=== PATIENT | female | born 1950 | race Caucasian/White ===

== ENCOUNTER 2016-12-31 13:47 | Inpatient (IN) | payer OTHER ==
[~2016-12-31] VITALS: Ht 172.7 cm; Wt 66.7 kg
[~2016-12-31 13:47] MED LIST: CHOL100010 PO; CYAN100020 PO; FSM70 PO; IMP/50 PO; LEVO1TAB33 PO; METO1TAB69 PO; METO25TA56 PO; MULTTAB58 PO; OMEG10007 PO; PRLSR20 PO; SUMA50TA15 PO; TRAM-10 PO; TRIM100T20 PO
[2016-12-31] MEDS ORDERED: SODIUM CHLORIDE 0.9% 1000ML 500 ML IV STA (14:32)
[2016-12-31] MEDS ORDERED: SODIUM CHLORIDE 0.9% 1000ML 1,000 ML IV ONE (14:32)
--- NOTE | 2016-12-31 14:41 | EMERGENCY ROOM VISIT NOTE ---
History Report prepared by Vik: Hugo Gasca Under the Supervision of: Dr. Hugo Galdamez M.D. First contact with patient: 14:23 Chief Complaint: WEAKNESS Stated Complaint: WEAKNESS, PALE, DIZZY Nursing Triage Summary: Dizziness, weakness, SKIN DRIER cough, intermittent fever History of Present Illness The patient is a 66 year old female who presents to the Emergency Room by EMS with complaints of persistent weakness beginning a few days ago. She notes she has not been eating much the last few days as she has not been as hungry, but has been drinking fluids. She admits to having a headache, subjective fever, lightheadedness, shortness of breath, and a nonproductive cough. The patient denies any vomiting, aches, abdominal pain, or any recent falls. She reports having difficulty keeping her balance in the last few months. The patient notes having a pacemaker which was last checked last year, and has been noted to have some Parkinson's symptoms. She denies a history of diabetes or fluid on the lungs. The patient received Zofran and fluids en route by EMS Source of History: patient, spouse/significant other Onset: a few days ago Position: other (global) Quality: other (weakness) Timing: other (persistent) Associated Symptoms: + SOB, + cough (nonproductive), + fevers (subjective), + headache, No abdominal pain, No vomiting Note: The patient admits to having lightheadedness. The patient denies any aches. Review of Systems See HPI for pertinent positives & negatives. A total of 10 systems reviewed and were otherwise negative. Past Medical & Surgical Medical Problems: (1) Mobitz type II atrioventricular block (2) Tachycardia Old medical records were reviewed. Nurse's notes were reviewed and I agree with. Family History No pertinent family history stated. Social History Smoking Status: Never Smoker Drug Use: none Marital Status: Housing Status: lives with family Current/Historical Medications Scheduled Alendronate Sodium (Fosamax), 70 MG PO WK Cholecalciferol (Vitamin D), 100 UNITS PO DAILY Cyanocobalamin (Vitamin B12), 1,000 MCG PO DAILY Fish Oil ([place]-3), 1,000 MG PO BID Imipramine (Tofranil), 150 MG PO HS Metoprolol Succ (Toprol Xl) (Toprol-Xl ), 150 MG PO DAILY Multiple Vitamin (Multivitamin), 1 TAB PO DAILY Omeprazole (Prilosec), 20 MG PO DAILY Oseltamivir Phosphate (Tamiflu), 1 CAP PO BID Sumatriptan Succinate (Imitrex), 50 MG PO PRN Tramadol (Ultram), 50 MG PO BID PRN Trimethoprim (Proloprim), 100 MG PO HS Scheduled PRN Metoprolol Tartrate (Lopressor) (Lopressor), 25 MG PO Q8 PRN Allergies Coded Allergies: Penicillins (Verified Allergy, Intermediate, HIVES, 06/06/16) HIVES Morphine (Verified Allergy, Unknown, HYPOTENSION, 06/06/16) Physical Exam Vital Signs Date Time Temp Pulse Resp B/P Pulse Ox O2 Delivery O2 Flow Rate FiO2 12/31/16 15:37 113 18 132/89 97 Room Air 12/31/16 14:40 113 12/31/16 14:15 36.9 116 18 131/71 98 Nasal Cannula 3.0 12/31/16 14:15 98 Nasal Cannula 3.0 Physical Exam General: Mildly ill appearing, but nontoxic, older female. Frequent dry cough. HEENT: Normal cephalic atraumatic. Pupils are equal round and reactive to light. Extraocular movements are intact. Oropharynx is pink with moist mucous membranes. No swelling of the mouth lips or tongue. Neck: Supple with a midline trachea. No meningeal signs or stiffness, no JVD or bruits. No Stridor. Chest: Clear to auscultation bilaterally. No wheezes or rhonchi. No increased work of breathing. Heart: Mildly tachycardic. Abdomen: Soft nontender, nondistended without rebound guarding or rigidity. Extremities: No cyanosis clubbing or edema. No calf tenderness or assymetry Spine/Back. Non tender to palpation. No CVA tenderness Skin: Good turgor without rashes. Neurologic exam: Cranial nerves two through 12 are intact. Motor and sensation are intact and symmetrical throughout. Medical Decision & Procedures ER Provider Diagnostic Interpretation: X ray results as stated below per my interpretation and radiologist interpretation. Other radiology results as stated below per my review and radiologist interpretation: CHEST ONE VIEW PORTABLE FINDINGS: Lungs are clear. Moderate emphysematous change. Diaphragms smooth. Prominent bipolar cardiac pacemaker. IMPRESSION: Emphysematous change. No acute process. Electronically signed by: Thad Sheppard M.D. 12/31/2016 3:00 PM Dictated Date/Time: 12/31/2016 2:59 PM Laboratory Results 12/31/16 14:20 Red Blood Count 4.93, Mean Corpuscular Volume 89.5, Mean Corpuscular Hemoglobin 31.8, Mean Corpuscular Hemoglobin Concent 35.6, Mean Platelet Volume 10.9, Neutrophils (%) (Auto) 75.4, Lymphocytes (%) (Auto) 17.7, Monocytes (%) (Auto) 6.5, Eosinophils (%) (Auto) 0.0, Basophils (%) (Auto) 0.2, Neutrophils # (Auto) 3.58, Lymphocytes # (Auto) 0.84, Monocytes # (Auto) 0.31, Eosinophils # (Auto) 0.00, Basophils # (Auto) 0.01 12/31/16 14:20 Test 12/31/16 14:10 12/31/16 14:13 12/31/16 14:20 12/31/16 14:31 Influenza Type A (RT-PCR) POS for Influ A (NEG) Influenza Type B (RT-PCR) Neg for Influ B (NEG) White Blood Count 4.75 K/uL (4.8-10.8) Red Blood Count 4.93 M/uL (4.2-5.4) Hemoglobin 15.7 g/dL (12.0-16.0) Hematocrit 44.1 % (37-47) Mean Corpuscular Volume 89.5 fL (80-100) Mean Corpuscular Hemoglobin 31.8 pg (25-34) Mean Corpuscular Hemoglobin Concent 35.6 g/dl (32-36) Platelet Count 125 K/uL (130-400) Mean Platelet Volume 10.9 fL (7.4-10.4) Neutrophils (%) (Auto) 75.4 % Lymphocytes (%) (Auto) 17.7 % Monocytes (%) (Auto) 6.5 % Eosinophils (%) (Auto) 0.0 % Basophils (%) (Auto) 0.2 % Neutrophils # (Auto) 3.58 K/uL (1.4-6.5) Lymphocytes # (Auto) 0.84 K/uL (1.2-3.4) Monocytes # (Auto) 0.31 K/uL (0.11-0.59) Eosinophils # (Auto) 0.00 K/uL (0-0.5) Basophils # (Auto) 0.01 K/uL (0-0.2) RDW Standard Deviation 40.6 fL (36.4-46.3) RDW Coefficient of Variation 12.5 % (11.5-14.5) Immature Granulocyte % (Auto) 0.2 % Immature Granulocyte # (Auto) 0.01 K/uL (0.00-0.02) Anion Gap 16.0 mmol/L (3-11) Est Creatinine Clear Calc Drug Dose 29.0 ml/min Estimated GFR () 31.1 Estimated GFR (Non- 26.8 BUN/Creatinine Ratio 9.2 (10-20) Calcium Level 9.0 mg/dl (8.5-10.1) Total Bilirubin 0.6 mg/dl (0.2-1) Aspartate Amino Transf (AST/SGOT) 22 U/L (15-37) Alanine Aminotransferase (ALT/SGPT) 19 U/L (12-78) Alkaline Phosphatase 70 U/L (45-117) Total Creatine Kinase 36 U/L (26-192) Creatine Kinase MB < 0.5 ng/ml (0.5-3.6) Creatine Kinase MB Ratio (0-3.0) Total Protein 7.5 gm/dl (6.4-8.2) Albumin 3.8 gm/dl (3.4-5.0) Globulin 3.7 gm/dl (2.5-4.0) Albumin/Globulin Ratio 1.0 (0.9-2) Thyroid Stimulating Hormone (TSH) 1.520 uIu/ml (0.300-4.500) Bedside Troponin I 0.000 ng/ml (0-0.045) Laboratory studies as stated above per my review. Medications Administered Medications (Trade) Dose Ordered Sig/Faraz Route Start Time Stop Time Status Last Admin Dose Admin Sodium Chloride 500 ml @ 999 mls/hr Q31M STAT IV 12/31/16 14:32 12/31/16 15:02 DC 12/31/16 14:36 999 MLS/HR Sodium Chloride (Nss 1000ml) 1,000 ml @ 150 mls/hr Q6H40M ONCE IV 12/31/16 14:32 12/31/16 20:02 DC 12/31/16 14:36 150 MLS/HR Oseltamivir Phosphate 75 mg 75 mg NOW STAT PO 12/31/16 16:12 12/31/16 16:13 DC 12/31/16 16:28 75 MG Sodium Chloride (Nss 1000ml) 1,000 ml @ 100 mls/hr Q10H IV 12/31/16 16:30 01/30/17 16:29 12/31/16 21:14 100 MLS/HR ECG Indication: weakness Rate (beats per minute): 112 Rhythm: sinus tachycardia Findings: no acute ischemic change, no ectopy, other (poor baseline; poor R wave progression) Comparison ECG Date: June 06, 2016 Change: Rate has increased. ED Course 1424: Past medical records reviewed. The patient was evaluated in room C8, and a complete history and physical examination were performed. 1432: NSS 1,000 ml @ 150 mls/hr IV, and NSS 500 ml @ 999 mls/hr IV. 1610: I spoke with Dr. Rankin about the patient's case. The patient will be further evaluated and managed for disposition. 1612: Ordered Tamiflu Cap 75 mg PO. Medical Decision Differentials include dehydration, pneumonia, sepsis, influenza, electrolyte or metabolic arrhythmia. This patient comes in as described above. She was placed in room C8. She's not felt well. She's been unable to get around. She's been diffusely weak. She was noted be significantly tachycardic by EMS at 140 and her pulse ox had been in the high 80s. I was concerned about infection and cardiac disease among other etiologies. IV access established and she was hydrated with IV normal saline. Chest x-ray does not show any definite pneumonia, CHF, or pneumothorax. EKG shows sinus tachycardia but no ischemic changes. She does not any significant electrode or metabolic abnormalities. Her neurologic exam is nonfocal but she feels diffusely weak. Her influenza PCR came back positive. She was given Tamiflu. Given her presentation, I do think she needs to be admitted for hydration and further treatment and evaluation. She's been weak and tachycardic and mildly hypoxemic as well. I did consult the hospitalist team. They saw her in the ER and will admit her for these measures. Consults Time Called: 1608 Consulting Physician: Dr. Rankin Returned Call: [address] Rankin about the patient's case. The patient will be further evaluated and managed for disposition. Impression Primary Impression: Weakness Additional Impressions: Dehydration Influenza Scribe Attestation The scribe's documentation has been prepared under my direction and personally reviewed by me in its entirety. I confirm that the note above accurately reflects all work, treatment, procedures, and medical decision making performed by me. Departure Information Dispostion Being Evaluated By Hospitalist Prescriptions Oseltamivir Phosphate (Tamiflu) 75 Mg Cap 1 CAP PO BID for 5 Days, #10 CAP Prov: Ted Oneal, D.O. 01/01/17 Referrals RV. Shelton MD (PCP) Patient Instructions My [facility] Problem Qualifiers
[2016-12-31 14:46] LABS: BASO % 0.2 %; BASO ABS # 0.01 K/uL (0-0.2); COMPLETE YES; HEMATOCRIT 44.1 % (37-47); IG% 0.2 %; LYMPH % 17.7 %; LYMPH ABS # 0.84 K/uL (1.2-3.4); MEAN CELL VOLUME 89.5 fL (80-100); MEAN CORPUSCULAR HEMOGLOBIN 31.8 pg (25-34); MEAN CORPUSCULAR HGB CONC 35.6 g/dl (32-36); MEAN PLATELET VOLUME 10.9 fL (7.4-10.4); MONO % 6.5 %; NEUT % 75.4 %; PLATELET COUNT 125 K/uL (130-400); RED BLOOD COUNT 4.93 M/uL (4.2-5.4); WHITE BLOOD COUNT 4.75 K/uL (4.8-10.8)
[2016-12-31 14:54] LABS: ALT/SGPT 19 U/L (12-78); AST/SGOT 22 U/L (15-37); BLOOD UREA NITROGEN 17 mg/dl (7-18); BUN/CREATININE RATIO 9.2 (10-20); CARBON DIOXIDE 21 mmol/L (21-32); CHLORIDE 97 mmol/L (98-107); GLUCOSE 97 mg/dl (70-99); POTASSIUM 4.5 mmol/L (3.5-5.1); SODIUM 134 mmol/L (136-145)
--- NOTE | 2016-12-31 15:01 | DIAGNOSTIC IMAGING REPORT ---
CHEST ONE VIEW PORTABLE CLINICAL HISTORY: Weakness, dizzy dyspnea COMPARISON STUDY: 06/06/2016 FINDINGS: Lungs are clear. Moderate emphysematous change. Diaphragms smooth. Prominent bipolar cardiac pacemaker. IMPRESSION: Emphysematous change. No acute process. Electronically signed by: Thad Sheppard M.D. 12/31/2016 3:00 PM Dictated Date/Time: 12/31/2016 2:59 PM
[2016-12-31 15:05] LABS: ALKALINE PHOSPHATASE 70 U/L (45-117)
[2016-12-31] MEDS ORDERED: ALEN70TA2 PO (15:12)
[2016-12-31] MEDS ORDERED: CHOL100010 PO (15:12)
[2016-12-31 16:11] LABS: INFLUENZA A PCR POS for Influ A (NEG); INFLUENZA B PCR Neg for Influ B (NEG)
[2016-12-31] MEDS ORDERED: OSELTAMIVIR PHOSPHATE 75 MG CAP PO STA (16:12)
[2016-12-31] MEDS ORDERED: ONDANSETRON INJ 2 MG/ML 2 ML VIAL IV PRN (16:30)
[2016-12-31] MEDS ORDERED: ACETAMINOPHEN 325 MG TAB PO PRN (16:30)
--- NOTE | 2016-12-31 17:04 | History and Physical ---
History & Physical Date & Time of Service: Dec 31, 2016 at 16:54 Chief Complaint: Weakness, Pale, Dizzy Primary Care Physician: RV. Shelton MD History of Present Illness Source: patient, clinic records, hospital records This patient is a 66-year-old female that presents the emergency department complaining of nonproductive cough, dyspnea with exertion and lightheadedness that started 4 days ago. The patient thinks that she also had a fever last night, but did not take her temperature. She reports night sweats and some body aches. She denies any sick contacts. She did receive her flu vaccine this year. She denies any chest pain or pressure. She has noticed a poor appetite. She is still trying to adequately take in fluids, but admits to not eating much over the last several days. In the emergency department, the patient tested positive for influenza A. Past Medical/Surgical History Medical Problems: (1) Mobitz type II atrioventricular block Status: Chronic sick sinus syndrome status post pacemaker placement Parkinson-like syndrome History of migraines Ambulatory dysfunction Social History Smoking Status: Never Smoker Alcohol Use: none Marital Status: Housing status: lives with significant other Immunizations History of Influenza Vaccine: No History of Tetanus Vaccine?: No History of Pneumococcal: No History of Hepatitis B Vaccine: No Multi-Drug Resistant Organisms History of MDRO: No Allergies Coded Allergies: Penicillins (Verified Allergy, Intermediate, HIVES, 06/06/16) HIVES Morphine (Verified Allergy, Unknown, HYPOTENSION, 06/06/16) Home Medications Scheduled Alendronate Sodium (Fosamax), 70 MG PO WK Cholecalciferol (Vitamin D), 100 UNITS PO DAILY Cyanocobalamin (Vitamin B12), 1,000 MCG PO DAILY Fish Oil ([place]-3), 1,000 MG PO BID Imipramine (Tofranil), 150 MG PO HS Metoprolol Succ (Toprol Xl) (Toprol-Xl ), 150 MG PO DAILY Multiple Vitamin (Multivitamin), 1 TAB PO DAILY Omeprazole (Prilosec), 20 MG PO DAILY Sumatriptan Succinate (Imitrex), 50 MG PO PRN Tramadol (Ultram), 50 MG PO BID PRN Trimethoprim (Proloprim), 100 MG PO HS Scheduled PRN Metoprolol Tartrate (Lopressor) (Lopressor), 25 MG PO Q8 PRN Review of Systems 10 system review performed and negative unless noted in HPI or below Physical Exam Vital Signs Date Time Temp Pulse Resp B/P Pulse Ox O2 Delivery O2 Flow Rate FiO2 12/31/16 15:37 113 18 132/89 97 Room Air 12/31/16 14:40 113 12/31/16 14:15 36.9 116 18 131/71 98 Nasal Cannula 3.0 12/31/16 14:15 98 Nasal Cannula 3.0 General Appearance: + mild distress (mild respiratory distress) Head: normocephalic Eyes: EOMI ENT: + pertinent finding (oral mucosa dry) Neck: no JVD Respiratory/Chest: + pertinent finding (few rhonchi noted in the right middle and right lower lobes. No crackles. Mild expiratory wheeze throughout.) Cardiovascular: + tachycardia Abdomen/GI: normal bowel sounds, non tender, soft Extremities/Musculoskelatal: no calf tenderness, no pedal edema Neurologic/Psych: no motor/sensory deficits, oriented x 3 Skin: warm/dry Diagnostics Laboratory Results 12/31/16 14:20 Red Blood Count 4.93, Mean Corpuscular Volume 89.5, Mean Corpuscular Hemoglobin 31.8, Mean Corpuscular Hemoglobin Concent 35.6, Mean Platelet Volume 10.9, Neutrophils (%) (Auto) 75.4, Lymphocytes (%) (Auto) 17.7, Monocytes (%) (Auto) 6.5, Eosinophils (%) (Auto) 0.0, Basophils (%) (Auto) 0.2, Neutrophils # (Auto) 3.58, Lymphocytes # (Auto) 0.84, Monocytes # (Auto) 0.31, Eosinophils # (Auto) 0.00, Basophils # (Auto) 0.01 12/31/16 14:20 Test 12/31/16 14:10 12/31/16 14:13 12/31/16 14:20 12/31/16 14:31 Influenza Type A (RT-PCR) POS for Influ A (NEG) Influenza Type B (RT-PCR) Neg for Influ B (NEG) White Blood Count 4.75 K/uL (4.8-10.8) Red Blood Count 4.93 M/uL (4.2-5.4) Hemoglobin 15.7 g/dL (12.0-16.0) Hematocrit 44.1 % (37-47) Mean Corpuscular Volume 89.5 fL (80-100) Mean Corpuscular Hemoglobin 31.8 pg (25-34) Mean Corpuscular Hemoglobin Concent 35.6 g/dl (32-36) Platelet Count 125 K/uL (130-400) Mean Platelet Volume 10.9 fL (7.4-10.4) Neutrophils (%) (Auto) 75.4 % Lymphocytes (%) (Auto) 17.7 % Monocytes (%) (Auto) 6.5 % Eosinophils (%) (Auto) 0.0 % Basophils (%) (Auto) 0.2 % Neutrophils # (Auto) 3.58 K/uL (1.4-6.5) Lymphocytes # (Auto) 0.84 K/uL (1.2-3.4) Monocytes # (Auto) 0.31 K/uL (0.11-0.59) Eosinophils # (Auto) 0.00 K/uL (0-0.5) Basophils # (Auto) 0.01 K/uL (0-0.2) RDW Standard Deviation 40.6 fL (36.4-46.3) RDW Coefficient of Variation 12.5 % (11.5-14.5) Immature Granulocyte % (Auto) 0.2 % Immature Granulocyte # (Auto) 0.01 K/uL (0.00-0.02) Anion Gap 16.0 mmol/L (3-11) Est Creatinine Clear Calc Drug Dose 29.0 ml/min Estimated GFR () 31.1 Estimated GFR (Non- 26.8 BUN/Creatinine Ratio 9.2 (10-20) Calcium Level 9.0 mg/dl (8.5-10.1) Total Bilirubin 0.6 mg/dl (0.2-1) Aspartate Amino Transf (AST/SGOT) 22 U/L (15-37) Alanine Aminotransferase (ALT/SGPT) 19 U/L (12-78) Alkaline Phosphatase 70 U/L (45-117) Total Creatine Kinase 36 U/L (26-192) Creatine Kinase MB < 0.5 ng/ml (0.5-3.6) Creatine Kinase MB Ratio (0-3.0) Total Protein 7.5 gm/dl (6.4-8.2) Albumin 3.8 gm/dl (3.4-5.0) Globulin 3.7 gm/dl (2.5-4.0) Albumin/Globulin Ratio 1.0 (0.9-2) Thyroid Stimulating Hormone (TSH) 1.520 uIu/ml (0.300-4.500) Bedside Troponin I 0.000 ng/ml (0-0.045) Results Past 24 Hours Test 12/31/16 14:10 12/31/16 14:13 12/31/16 14:20 12/31/16 14:31 Range/Units Influenza Type A (RT-PCR) POS for Influ A NEG Influenza Type B (RT-PCR) Neg for Influ B NEG White Blood Count 4.75 4.8-10.8 K/uL Red Blood Count 4.93 4.2-5.4 M/uL Hemoglobin 15.7 12.0-16.0 g/dL Hematocrit 44.1 37-47 % Mean Corpuscular Volume 89.5 80-100 fL Mean Corpuscular Hemoglobin 31.8 25-34 pg Mean Corpuscular Hemoglobin Concent 35.6 32-36 g/dl Platelet Count 125 130-400 K/uL Mean Platelet Volume 10.9 7.4-10.4 fL Neutrophils (%) (Auto) 75.4 % Lymphocytes (%) (Auto) 17.7 % Monocytes (%) (Auto) 6.5 % Eosinophils (%) (Auto) 0.0 % Basophils (%) (Auto) 0.2 % Neutrophils # (Auto) 3.58 1.4-6.5 K/uL Lymphocytes # (Auto) 0.84 1.2-3.4 K/uL Monocytes # (Auto) 0.31 0.11-0.59 K/uL Eosinophils # (Auto) 0.00 0-0.5 K/uL Basophils # (Auto) 0.01 0-0.2 K/uL RDW Standard Deviation 40.6 36.4-46.3 fL RDW Coefficient of Variation 12.5 11.5-14.5 % Immature Granulocyte % (Auto) 0.2 % Immature Granulocyte # (Auto) 0.01 0.00-0.02 K/uL Sodium Level 134 136-145 mmol/L Potassium Level 4.5 3.5-5.1 mmol/L Chloride Level 97 98-107 mmol/L Carbon Dioxide Level 21 21-32 mmol/L Anion Gap 16.0 3-11 mmol/L Blood Urea Nitrogen 17 7-18 mg/dl Creatinine 1.90 0.60-1.20 mg/dl Est Creatinine Clear Calc Drug Dose 29.0 ml/min Estimated GFR () 31.1 Estimated GFR (Non- 26.8 BUN/Creatinine Ratio 9.2 10-20 Random Glucose 97 70-99 mg/dl Calcium Level 9.0 8.5-10.1 mg/dl Total Bilirubin 0.6 0.2-1 mg/dl Aspartate Amino Transf (AST/SGOT) 22 15-37 U/L Alanine Aminotransferase (ALT/SGPT) 19 12-78 U/L Alkaline Phosphatase 70 45-117 U/L Total Creatine Kinase 36 26-192 U/L Creatine Kinase MB < 0.5 0.5-3.6 ng/ml Creatine Kinase MB Ratio 0-3.0 Total Protein 7.5 6.4-8.2 gm/dl Albumin 3.8 3.4-5.0 gm/dl Globulin 3.7 2.5-4.0 gm/dl Albumin/Globulin Ratio 1.0 0.9-2 Thyroid Stimulating Hormone (TSH) 1.520 0.300-4.500 uIu/ml Bedside Troponin I 0.000 0-0.045 ng/ml Diagnostic Radiology Patient: TO RED Address1: [address] [place] [address] Rec: [id number] Address2: Acct ID: [id number] [facility] Zip: [place] [address] Date: 1950 Sex: F Room/Bed: Ref Phy: RV. Shelton MD SC: TAINA Att Phy: Report #: [id number] Celsa Phy: RV. Shelton MD Test: [id number] Admit Phy: Motor Expert: JYOTI Interpreting Phy: Thad Sheppard M.D. Diagnosis: WEAKNESS, PALE, DIZZY Ordering Phy: ED, PROTOCOL Service Date: 12/31/16 Admit Date: 12/31/16 MNE: [id number] CONF: DICTATED BY: Thad Sheppard M.D.]] CC: RV. Shelton MD ED,PROTOCOL Hugo Galdamez M.D. Endcc: [~ rep ct add3]] CHEST ONE VIEW PORTABLE CLINICAL HISTORY: Weakness, dizzy dyspnea COMPARISON STUDY: 06/06/2016 FINDINGS: Lungs are clear. Moderate emphysematous change. Diaphragms smooth. Prominent bipolar cardiac pacemaker. IMPRESSION: Emphysematous change. No acute process. Electronically signed by: Thad Sheppard M.D. 12/31/2016 3:00 PM Dictated Date/Time: 12/31/2016 2:59 PM The status of this report is Signed. Draft = Not yet reviewed or approved by Radiologist. Signed = Reviewed and approved by Radiologist. <AttendingPhy></AttendingPhy> <FamilyPhy>RV. Shelton MD</ FamilyPhy> <PrimaryPhy>RV. Shelton MD</PrimaryPhy> <UnitNumber> [id number]</UnitNumber> <VisitNumber>[id number]</VisitNumber> <PatientName> NEDATO</PatientName> <DateOfBirth>1950</DateOfBirth> <Location> C.EDC</Location> <ServiceDate>12/31/16</ServiceDate> <MNE>ESINDI</MNE> < OrderingPhy>ED, PROTOCOL</OrderingPhy> <OrderingPhyMNE>f rep ord dr guidry</ OrderingPhyMNE> <DictatingPhyMNE>f rep dict dr guidry</DictatingPhyMNE> <CCListMNE> f rep ct mne</CCListMNE> <AdmittingPhyMNE>f pt admit dr guidry</AdmittingPhyMNE> < AttendingPhyMNE>f pt attend dr guidry</Atte Impression Assessment and Plan 66-year-old female presents with fever, dyspnea with exertion, nonproductive cough, weakness and dehydration-tested influenza a positive Influenza a -Admit to medical floor -Continue Tamiflu 75 mg BID -continue O2 prn -NS @ 100 cc/hr -duonebs q 6 hr and 2 hr PRN Acute on chronic kidney disease stage III-Baseline creatinine approximately 1.6. Creatinine is slightly elevated today at 1.9. This is likely secondary to dehydration. -IV fluids as noted above -Monitor PRP History of Mobitz II status post pacemaker placement-patient is slightly tachycardic in the emergency department, however I feel this is likely secondary to acute illness/dehydration as opposed to strictly cardiogenic -Continue to hydrate -Continue metoprolol XL 150 mg daily -Continue Lopressor 25 mg po every 8 hrs if HR does not respond to IVF Parkinson syndrome -PT/OT eval DVT prophylaxis -Heparin 5000 u subQ BID -TEDS, SCDs CODE STATUS -LEVEL I FULL CODE i personally examined pt and verified all marmolejo points w A [facility] PAC feeling weak vitals noted, fatigued appearing no respiratory distress, no pallor or icterus influenza - as above. given severity of illness, age, comorbidities - tamiflu acute on chronic renal insufficiency - approx stage 3 - fluids as above otherwise as above Level of Care Med/Surg Resuscitation Status FULL RESUSCITATION VTE Prophylaxis VTE Risk Assessment Done? Y/N: Yes Risk Level: Low Given or contraindicated: Unfractionated heparin SQ, T.E.D. Stockings, SCD's
[2016-12-31 19:15] VITALS: Ht 172.7 cm; Wt 66.7 kg
[2016-12-31 19:32] VITALS: BP 138/84; PULSE 126; TEMP 36.6; O2SAT 96
[2016-12-31 19:37] VITALS: PULSE 107; O2SAT 93
[2016-12-31] MEDS: ALBUT/IPRATROP 3MG/0.5MG NEB 3 ML VIAL INH SCH (20:00)
[2016-12-31 20:39] LABS: PROTHROMBIN TIME (PATIENT) 10.8 SECONDS (9.0-12.0)
[2016-12-31] MEDS: SODIUM CHLORIDE 0.9% 1000ML 1,000 ML IV SCH (21:14)
[2016-12-31 22:59] VITALS: BP 125/76; PULSE 108; TEMP 37.1; O2SAT 95
[2017-01-01] MEDS: HEPARIN SOD 5000 UNIT/0.5 ML CARP SQ SCH ×3 (00:16→14:14)
[2017-01-01] MEDS: SODIUM CHLORIDE 0.9% 1000ML 1,000 ML IV SCH (06:30)
[2017-01-01 06:36] LABS: HEMATOCRIT 35.7 % (37-47); MEAN CELL VOLUME 91.1 fL (80-100); MEAN CORPUSCULAR HEMOGLOBIN 31.9 pg (25-34); MEAN PLATELET VOLUME 10.6 fL (7.4-10.4); PLATELET COUNT 94 K/uL (130-400); RED BLOOD COUNT 3.92 M/uL (4.2-5.4); WHITE BLOOD COUNT 2.84 K/uL (4.8-10.8)
[2017-01-01 06:52] LABS: COMPLETE YES; IG% 0.4 %; LYMPH % 26.8 %; LYMPH ABS # 0.76 K/uL (1.2-3.4); MONO % 7.4 %; NEUT % 65.4 %; PLT ESTIMATE DECREASED
[2017-01-01 07:06] VITALS: PULSE 109; O2SAT 94
[2017-01-01] MEDS: ALBUT/IPRATROP 3MG/0.5MG NEB 3 ML VIAL INH SCH (07:06)
[2017-01-01 07:07] LABS: BUN/CREATININE RATIO 10.1 (10-20); CALCIUM 7.9 mg/dl (8.5-10.1); CREATININE 1.2 mg/dl (0.60-1.20); MAGNESIUM 1.7 mg/dl (1.8-2.4); POTASSIUM 4.5 mmol/L (3.5-5.1)
[2017-01-01 07:34] LABS: URINE APPEARANCE CLEAR (CLEAR); URINE BILIRUBIN NEG (NEG); URINE COLOR YELLOW; URINE NITRITE NEG (NEG); URINE SPECIFIC GRAVITY 1.016 (1.000-1.030); UROBILINOGEN NEG (NEG); ZZUR CULT IF INDIC CLEAN CATCH NO
[2017-01-01 07:36] VITALS: BP 115/71; TEMP 36.7; O2SAT 95
[2017-01-01 07:46] LABS: MANUAL MICROSCOPIC REQUIRED? NO; REVIEW REQ? NO
[2017-01-01] MEDS ORDERED: METOPROLOL SUCC 50MG EXT REL TAB PO SCH (09:00)
[2017-01-01] MEDS ORDERED: OSELTAMIVIR PHOSPHATE SUSP 30 MG/5 ML UDP PO SCH (09:00)
[2017-01-01] MEDS ORDERED: PANTOprazole SOD 40 MG TAB PO SCH (09:00)
--- NOTE | 2017-01-01 09:18 | Family Medicine Progress Note ---
Progress Note Date of Service Jan 01, 2017. Subjective Pt evaluation today including: conversation w/ patient, physical exam, chart review, lab review, review of studies Pain: No pain reported this morning Voiding: no voiding problems Patient is a 66 year old female that presented with Influenza A virus. Patient is doing well, denies any shortness of breath or cough. Denies fevers, chills, or headache. Constitutional: No chills, No fever, No sweats Respiratory: No cough, No sputum, No wheezing Cardiovascular: No chest pain, No edema Abdomen: No nausea, No pain, No vomiting Female : No dysuria Endo: + fatigue Medications Current Inpatient Medications Medications (Trade) Dose Ordered Sig/Faraz Route Start Time Stop Time Status Last Admin Dose Admin Heparin Sodium (Porcine) (Heparin Sq 5000 Unit/0.5ml) 5,000 unit Q8H SQ 12/31/16 22:00 01/30/17 21:59 01/01/17 06:35 5,000 UNIT Acetaminophen (Tylenol Tab) 650 mg Q4H PRN PO 12/31/16 16:30 01/30/17 16:29 Ondansetron HCl 4 mg 4 mg Q6H PRN IV 12/31/16 16:30 01/30/17 16:29 Sodium Chloride (Nss 1000ml) 1,000 ml @ 100 mls/hr Q10H IV 12/31/16 16:30 01/30/17 16:29 01/01/17 06:30 100 MLS/HR Oseltamivir Phosphate (Tamiflu Susp) 30 mg BID PO 01/01/17 09:00 01/06/17 08:59 01/01/17 08:35 30 MG Metoprolol Succinate (Toprol Xl Tab) 150 mg DAILY PO 01/01/17 09:00 01/31/17 08:59 01/01/17 08:35 150 MG Pantoprazole Sodium (Protonix Tab) 40 mg QAM PO 01/01/17 09:00 01/31/17 08:59 01/01/17 08:35 40 MG Miscellaneous Information (Order Awaiting Action) 1 ea QS N/A 01/01/17 00:00 01/31/17 00:00 Objective Vital Signs Date Time Temp Pulse Resp B/P Pulse Ox O2 Delivery O2 Flow Rate FiO2 01/01/17 07:36 36.7 20 115/71 95 Room Air 01/01/17 07:06 109 18 94 Room Air 01/01/17 00:30 Room Air 12/31/16 22:59 37.1 108 16 125/76 95 Room Air 12/31/16 19:37 107 18 93 Room Air 12/31/16 19:32 36.6 126 20 138/84 96 Room Air 12/31/16 19:15 Room Air 12/31/16 18:49 104 20 140/53 100 Nasal Cannula 2.0 12/31/16 18:32 115 12/31/16 17:16 113 18 139/90 100 Room Air 12/31/16 15:37 113 18 132/89 97 Room Air 12/31/16 14:40 113 12/31/16 14:15 36.9 116 18 131/71 98 Nasal Cannula 3.0 12/31/16 14:15 98 Nasal Cannula 3.0 Physical Exam General Appearance: WD/WN, no apparent distress Respiratory/Chest: chest non-tender, lungs clear, normal breath sounds, no respiratory distress Cardiovascular: no edema, no gallop, no JVD, no murmur, + extra beats Abdomen: normal bowel sounds, non tender, soft Extremities: non-tender, no pedal edema, no calf tenderness Neurologic/Psychiatric: alert, normal mood/affect, oriented x 3 Laboratory Results Results Past 24 Hours Test 12/31/16 14:10 12/31/16 14:20 12/31/16 14:31 12/31/16 20:25 Range/Units Influenza Type A (RT-PCR) POS for Influ A NEG Influenza Type B (RT-PCR) Neg for Influ B NEG White Blood Count 4.75 4.8-10.8 K/uL Red Blood Count 4.93 4.2-5.4 M/uL Hemoglobin 15.7 12.0-16.0 g/dL Hematocrit 44.1 37-47 % Mean Corpuscular Volume 89.5 80-100 fL Mean Corpuscular Hemoglobin 31.8 25-34 pg Mean Corpuscular Hemoglobin Concent 35.6 32-36 g/dl Platelet Count 125 130-400 K/uL Mean Platelet Volume 10.9 7.4-10.4 fL Neutrophils (%) (Auto) 75.4 % Lymphocytes (%) (Auto) 17.7 % Monocytes (%) (Auto) 6.5 % Eosinophils (%) (Auto) 0.0 % Basophils (%) (Auto) 0.2 % Neutrophils # (Auto) 3.58 1.4-6.5 K/uL Lymphocytes # (Auto) 0.84 1.2-3.4 K/uL Monocytes # (Auto) 0.31 0.11-0.59 K/uL Eosinophils # (Auto) 0.00 0-0.5 K/uL Basophils # (Auto) 0.01 0-0.2 K/uL RDW Standard Deviation 40.6 36.4-46.3 fL RDW Coefficient of Variation 12.5 11.5-14.5 % Immature Granulocyte % (Auto) 0.2 % Immature Granulocyte # (Auto) 0.01 0.00-0.02 K/uL Sodium Level 134 136-145 mmol/L Potassium Level 4.5 3.5-5.1 mmol/L Chloride Level 97 98-107 mmol/L Carbon Dioxide Level 21 21-32 mmol/L Anion Gap 16.0 3-11 mmol/L Blood Urea Nitrogen 17 7-18 mg/dl Creatinine 1.90 0.60-1.20 mg/dl Est Creatinine Clear Calc Drug Dose 29.0 ml/min Estimated GFR () 31.1 Estimated GFR (Non- 26.8 BUN/Creatinine Ratio 9.2 10-20 Random Glucose 97 70-99 mg/dl Calcium Level 9.0 8.5-10.1 mg/dl Total Bilirubin 0.6 0.2-1 mg/dl Aspartate Amino Transf (AST/SGOT) 22 15-37 U/L Alanine Aminotransferase (ALT/SGPT) 19 12-78 U/L Alkaline Phosphatase 70 45-117 U/L Total Creatine Kinase 36 26-192 U/L Creatine Kinase MB < 0.5 0.5-3.6 ng/ml Creatine Kinase MB Ratio 0-3.0 Total Protein 7.5 6.4-8.2 gm/dl Albumin 3.8 3.4-5.0 gm/dl Globulin 3.7 2.5-4.0 gm/dl Albumin/Globulin Ratio 1.0 0.9-2 Thyroid Stimulating Hormone (TSH) 1.520 0.300-4.500 uIu/ml Bedside Troponin I 0.000 0-0.045 ng/ml Prothrombin Time 10.8 9.0-12.0 SECONDS Prothromb Time International Ratio 1.0 0.9-1.1 Test 01/01/17 05:36 01/01/17 07:00 Range/Units White Blood Count 2.84 4.8-10.8 K/uL Red Blood Count 3.92 4.2-5.4 M/uL Hemoglobin 12.5 12.0-16.0 g/dL Hematocrit 35.7 37-47 % Mean Corpuscular Volume 91.1 80-100 fL Mean Corpuscular Hemoglobin 31.9 25-34 pg Mean Corpuscular Hemoglobin Concent 35.0 32-36 g/dl Platelet Count 94 130-400 K/uL Mean Platelet Volume 10.6 7.4-10.4 fL Neutrophils (%) (Auto) 65.4 % Lymphocytes (%) (Auto) 26.8 % Monocytes (%) (Auto) 7.4 % Eosinophils (%) (Auto) 0.0 % Basophils (%) (Auto) 0.0 % Neutrophils # (Auto) 1.86 1.4-6.5 K/uL Lymphocytes # (Auto) 0.76 1.2-3.4 K/uL Monocytes # (Auto) 0.21 0.11-0.59 K/uL Eosinophils # (Auto) 0.00 0-0.5 K/uL Basophils # (Auto) 0.00 0-0.2 K/uL RDW Standard Deviation 42.3 36.4-46.3 fL RDW Coefficient of Variation 12.6 11.5-14.5 % Immature Granulocyte % (Auto) 0.4 % Immature Granulocyte # (Auto) 0.01 0.00-0.02 K/uL Platelet Estimate DECREASED Red Blood Cell Morphology Unremarkable Sodium Level 137 136-145 mmol/L Potassium Level 4.5 3.5-5.1 mmol/L Chloride Level 104 98-107 mmol/L Carbon Dioxide Level 22 21-32 mmol/L Anion Gap 11.0 3-11 mmol/L Blood Urea Nitrogen 12 7-18 mg/dl Creatinine 1.20 0.60-1.20 mg/dl Est Creatinine Clear Calc Drug Dose 45.9 ml/min Estimated GFR () 54.2 Estimated GFR (Non- 46.7 BUN/Creatinine Ratio 10.1 10-20 Random Glucose 64 70-99 mg/dl Calcium Level 7.9 8.5-10.1 mg/dl Magnesium Level 1.7 1.8-2.4 mg/dl Hepatitis C Antibody Screen NEG NEG Urine Color YELLOW Urine Appearance CLEAR CLEAR Urine pH 5.0 4.5-7.5 Urine Specific [place] 1.016 1.000-1.030 Urine Protein NEG NEG Urine Glucose (UA) NEG NEG Urine Ketones 3+ NEG Urine Occult Blood NEG NEG Urine Nitrite NEG NEG Urine Bilirubin NEG NEG Urine Urobilinogen NEG NEG Urine Leukocyte Esterase SMALL NEG Urine WBC (Auto) 1-5 0-5 /hpf Urine RBC (Auto) 0-4 0-4 /hpf Urine Hyaline Casts (Auto) 1-5 0-5 /lpf Urine Epithelial Cells (Auto) 10-20 0-5 /lpf Urine Bacteria (Auto) NEG NEG Assessment and Plan Patient is a 66 year old female that presents with a 4 day history of nonproductive cough and shortness of breath 1) Acute Hypoxic Respiratory Failure - Positive for Influenza A - Tamiflu 75mg BID - IV Fluids - 95% on Room Air, off of oxygen and saturating well - Discontinue nebs, no wheezing or shortness of breath 2) CKD Stage 3 - Creatinine ranging from 1.2-2.0 on previous visits so baseline somewhere in between - Cr of 1.2 today so appears to be well hydrated with fluid replacement - Continue IV Fluids 3) Pacemaker for history of Mobitz 2 - Still tachycardic (HR from 108-126 over last 24 hours) - Dehydration as well as Albuterol possibly contributing - Metoprolol XL 150 mg daily 4) Hypomagnesemia - Mg 1.7 - Replete with 1gm Magnesium IV 5) DVT - Heparin 5000 units sq BID
[2017-01-01] MEDS ORDERED: MAGNESIUM SULFATE 1GM / D5W 1 GM in PREMIXED IN D5W 100 ML IV ONE (10:30)
[2017-01-01 14:41] VITALS: BP 89/60; PULSE 81; O2SAT 94
[2017-01-01 15:07] VITALS: BP 107/71; PULSE 88; TEMP 36.5; O2SAT 97
[2017-01-01] MEDS ORDERED: NF406 PO (15:15)
--- NOTE | 2017-01-01 15:17 | Discharge Instructions ---
Discharge Instructions Admission Reason for Admission: Influenza Discharge Discharge Diagnosis / Problem: Influenza, dehydration Discharge Goals Goal(s): Decrease discomfort, Improve function, Improve disease control Activity Recommendations Activity Limitations: resume your previous activity Lifting Limitations: none Exercise/Sports Limitations: as tolerated May Resume Sexual Activity: when tolerated Shower/Bathe: no limitations Driving or Machine Use: no limitations . Instructions / Follow-Up Instructions / Follow-Up Medications: - TAMIFLU: take twice a day for 5 days For the next few days get plenty of rest and drink as much fluids as you can. Try to eat more as tolerated. FOLLOW UP - please call office of Dr. Louis for follow up in one week's time Current Hospital Diet Patient's current hospital diet: Regular Diet Discharge Diet Recommended Diet: Regular Diet Pending Studies Studies pending at discharge: no Laboratory Results Last Resulted CBC 01/01/17 05:36 Red Blood Count 3.92, Mean Corpuscular Volume 91.1, Mean Corpuscular Hemoglobin 31.9, Mean Corpuscular Hemoglobin Concent 35.0, Mean Platelet Volume 10.6, Neutrophils (%) (Auto) 65.4, Lymphocytes (%) (Auto) 26.8, Monocytes (%) (Auto) 7.4, Eosinophils (%) (Auto) 0.0, Basophils (%) (Auto) 0.0, Neutrophils # (Auto) 1.86, Lymphocytes # (Auto) 0.76, Monocytes # (Auto) 0.21, Eosinophils # (Auto) 0.00, Basophils # (Auto) 0.00 Last Resulted BMP 01/01/17 05:36 Medical Emergencies . Who to Call and When: Medical Emergencies: If at any time you feel your situation is an emergency, please call 911 immediately. . Non-Emergent Contact Non-Emergency issues call your: Primary Care Provider Call Non-Emergent contact if: temperature is above 100.5, you have any medication questions . . "Provider Documentation" section prepared by Ted Oneal. VTE Core Measure Inpt VTE Proph given/why not?: Unfractionated heparin SQ, T.E.D. Stockings, SCD 's
[2017-01-01 15:25] VITALS: BP 107/71; PULSE 88; TEMP 36.5; O2SAT 97
--- NOTE | 2017-01-02 08:01 | Discharge Summary ---
Discharge Summary Date of Service Jan 02, 2017. Discharge Summary Admission Date: Dec 31, 2016 at 16:53 Discharge Date: Jan 01, 2017 Discharge Disposition: Home with services Principal Diagnosis: Influenza Problems/Secondary Diagnoses: KARRI, dehydration Hypomagnesium Immunizations: Have You Had Influenza Vaccine: No History of Tetanus Vaccine?: No History of Pneumococcal: No History of Hepatitis B Vaccine: No Procedures: none Consultations: none Medication Reconciliation New Medications: Oseltamivir Phosphate (Tamiflu) 75 Mg Cap 1 CAP PO BID for 5 Days, #10 CAP Continued Medications: Alendronate Sodium (Fosamax) 70 Mg Tab 70 MG PO WK, TAB Cholecalciferol (Vitamin D) 1,000 Unit Tab 100 UNITS PO DAILY Cyanocobalamin (Vitamin B12) 1,000 Mcg Tab 1000 MCG PO DAILY Fish Oil ([place]-3) 1 Ea Cap 1000 MG PO BID, CAP Imipramine (Tofranil) 50 Mg Tab 150 MG PO HS 3 tablets at hs Metoprolol Succ (Toprol Xl) (Toprol-Xl ) 100 Mg Tabcr 150 MG PO DAILY, TAB take 1 & 1/2 tab daily Metoprolol Tartrate (Lopressor) (Lopressor) 25 Mg Tab 25 MG PO Q8 PRN, TAB Multiple Vitamin (Multivitamin) 1 Tab Tab 1 TAB PO DAILY, TAB Omeprazole (Prilosec) 20 Mg Capcr 20 MG PO DAILY Sumatriptan Succinate (Imitrex) 50 Mg Tab 50 MG PO PRN, 0 Refills Tramadol (Ultram) 50 Mg Tab 50 MG PO BID PRN, 0 Refills PRN PAIN Trimethoprim (Proloprim) 100 Mg Tab 100 MG PO HS, TAB Discharge Exam Patient was seen in the morning, already was feeling better. HR was still slightly elevated, attributed to the albuterol nebulizers. Albuterol d/c, observed for several more hours. She ate her lunch, drinking more fluids. [place] well in the afternoon, ambulating with walker which is her baseline. Discussed going home and she agreed. Review of Systems: Constitutional: + chills, + fatigue, + weakness, No fever, No problem reported, No sweats, No weight loss Eyes: No diplopia, No discharge, No eye pain, No problem reported, No redness, No worsening of vision ENT: No dental problems, No hearing loss, No nasal symptoms, No problem reported, No sore throat, No tinnitus, No trouble swallowing, No unusual epistaxis Respiratory: + cough, + dyspnea on exertion, No dyspnea at rest, No hemoptysis, No shortness of breath, No sputum, No wheezing Cardiovascular: No PND, No chest pain, No claudication, No edema, No orthopnea, No palpitations, No problem reported Abdomen: No GI bleeding, No constipation, No diarrhea, No nausea, No pain, No problem reported, No vomiting Musculoskeletal: No calf pain, No joint pain, No muscle pain, No problem reported, No swelling Genitourinary - Female: No dysuria, No hematuria, No urinary frequency, No urinary incontinence, No urinary retention, No urinary urgency Neurologic: No balance problems, No memory loss, No numbness/tingling, No paralysis, No problem reported, No vertigo, No weakness Psychiatric: No anhedonism, No anxiety, No depression symptoms, No insomnia , No problem reported, No substance abuse Endocrine: No excessive thirst, No excessive urination, No fatigue, No problem reported Hematologic / Lymphatic: No abnormal bleeding/bruising, No clotting problems , No night sweats, No problem reported, No swollen lymph nodes Integumentary: No bleeding, No color change, No itch, No new/changing skin lesions, No problem reported, No rash Physical Exam: General Appearance: WD/WN, no apparent distress Eyes: normal inspection, EOMI, sclerae normal ENT: normal ENT inspection, hearing grossly normal, pharynx normal Neck: supple, no adenopathy, no JVD, trachea midline Respiratory/Chest: chest non-tender, lungs clear, normal breath sounds, no respiratory distress, no accessory muscle use Cardiovascular: regular rate, rhythm, no edema, no gallop, no JVD, no murmur , normal peripheral pulses Abdomen / GI: normal bowel sounds, non tender, soft, no organomegaly Extremities: normal inspection, no calf tenderness, normal capillary refill , no pedal edema, normal range of motion Neurologic/Psychiatric: mantel craftsman II-XII nml as tested, no motor/sensory deficits , alert, normal mood/affect, normal reflexes, oriented x 3 Skin: normal color, warm/dry, no rash Hospital Course Patient is a 66 year old female that presents with a 4 day history of nonproductive cough and shortness of breath, positive for influenza A in the ED. Also with elevated Cr at 1.9 on admission, suggesting KARRI and dehydration. 1) Acute Hypoxic Respiratory Failure - Positive for Influenza A - Tamiflu 75mg BID x 5 days - IV Fluids overnight - 95% on Room Air, off of oxygen and saturating well - Discontinue nebs, no wheezing or shortness of breath - at time of discharge, patient breathing comfortably on room air, no distress, lungs clear, d/c on Tamiflu to complete 5 day course - instructed to get rest and push fluids for the next several days 2) KARRI on CKD stage III: resolved with IV fluids, Cr down to 1.2 from 1.9 initially, due to dehydration - continue to drink fluids at home 3) Pacemaker for history of Mobitz 2 - initially tachycardic, resolved after albuterol d/c, HR in the 80's on discharge - Metoprolol XL 150 mg daily 4) Hypomagnesemia - Mg 1.7 - Replete with 1gm Magnesium IV, repeat mag 2.3 5) DVT - Heparin 5000 units sq BID d/c home on Tamiflu, rest, fluids, f/u with PCP Total Time Spent: Greater than 30 minutes This includes examination of the patient, discharge planning, medication reconciliation, and communication with other providers. Discharge Instructions Please refer to the electronic Patient Visit Report (Discharge Instructions) for additional information. Follow-Up Dr. Louis in one week Additional Copies To RV. Shelton MD
== END 2017-01-01 16:54 | disposition home health service (06) | DRG 152 ==
LOC: ENRESERVTM → ENRESERVDT → EDBD 13:47 → C.EDC 13:48 → C.MS2W 16:53 → UNDOADMIN 16:53
PROVIDERS: ADMIT Family Medicine; ATTEND Internal Medicine
DX: J11.1 Influenza due to unidentified influenza virus with other respiratory manifestations (principal); J96.01 Acute respiratory failure with hypoxia; N17.9 Acute kidney failure, unspecified; E86.0 Dehydration; N18.3 Chronic kidney disease, stage 3 (moderate); G20 Parkinson's disease; E83.42 Hypomagnesemia; R00.0 Tachycardia, unspecified; G43.909 Migraine, unspecified, not intractable, without status migrainosus; R26.9 Unspecified abnormalities of gait and mobility; Z95.0 Presence of cardiac pacemaker; I44.1 Atrioventricular block, second degree; Z79.83 Long term (current) use of bisphosphonates; Z79.899 Other long term (current) drug therapy; Z79.891 Long term (current) use of opiate analgesic

== ENCOUNTER → 2017-01-08 | Outpatient (CLI) | payer OTHER ==
[~2017-01-08] MED LIST changes: +ALEN70TA2 PO; -FSM70 PO; -LEVO1TAB33 PO; +LVQ750 PO; +PRD10 PO
[2017-01-08 16:59] LABS: ALT/SGPT 23 U/L (12-78); AST/SGOT 17 U/L (15-37); BLOOD UREA NITROGEN 12 mg/dl (7-18); BUN/CREATININE RATIO 7.2 (10-20); CALCIUM 9.2 mg/dl (8.5-10.1); CARBON DIOXIDE 28 mmol/L (21-32); CHLORIDE 102 mmol/L (98-107); GLUCOSE 103 mg/dl (70-99); POTASSIUM 3.7 mmol/L (3.5-5.1); SODIUM 139 mmol/L (136-145)
[2017-01-08 17:01] LABS: ALKALINE PHOSPHATASE 60 U/L (45-117); CHOLESTEROL 206 mg/dl (0-200); CHOLESTEROL/HDL RATIO 4.5; HDL CHOLESTEROL 46 mg/dl; LDL CHOLESTEROL CALCULATED 113 mg/dl; TRIGLYCERIDES 234 mg/dl (0-150); VERY LOW DENSITY LIPOPROT CALC 47 mg/dl
[2017-01-08 17:13] LABS: BASO % 0.2 %; BASO ABS # 0.01 K/uL (0-0.2); COMPLETE YES; EOS % 0.8 %; HEMATOCRIT 38.1 % (37-47); IG% 0.2 %; LYMPH % 24.3 %; LYMPH ABS # 1.48 K/uL (1.2-3.4); MEAN CELL VOLUME 90.1 fL (80-100); MEAN CORPUSCULAR HEMOGLOBIN 31.7 pg (25-34); MEAN CORPUSCULAR HGB CONC 35.2 g/dl (32-36); MONO % 5.4 %; NEUT % 69.1 %; PLATELET COUNT 329 K/uL (130-400); RED BLOOD COUNT 4.23 M/uL (4.2-5.4)
--- NOTE | 2017-01-15 09:27 | CODING QUERY MEDICAL NECESSITY ---
SUPPORTING DIAGNOSIS NEEDED A supporting diagnosis is required for the test/procedure performed on this patient in order for us to be reimbursed by the patient's insurance. Please provide a supporting diagnosis for the following test/procedure listed below next to the test name along with your signature. *If there is no additional diagnosis for this patient that would support the following test/procedure please document that below next to the test/procedure. Test(s)/Procedure(s) that require a supporting diagnosis: * VITAMIN B-12 LEVEL DIAGNOSIS: * DOS: 01/08/17 Provider Signature: Date: Thank you Angelic Avalos Health Information Management Once completed, please kindly fax back to [phone] For questions please call [phone]
== END | disposition home or self-care (01) ==
LOC: C.LAB1850 15:01
PROVIDERS: ATTEND Nurse Practitioner Adult Health
DX: I12.9 Hypertensive chronic kidney disease with stage 1 through stage 4 chronic kidney disease, or unspecified chronic kidney disease (principal); N18.3 Chronic kidney disease, stage 3 (moderate); D64.9 Anemia, unspecified; E78.5 Hyperlipidemia, unspecified

== ENCOUNTER 2017-01-12 08:56 | Inpatient (IN) | payer OTHER ==
[~2017-01-12] VITALS: Ht 172.7 cm; Wt 64.0 kg
[~2017-01-12 08:56] MED LIST changes: -LVQ750 PO; -PRD10 PO
[2017-01-12 09:39] LABS: BASO % 0.1 %; BASO ABS # 0.01 K/uL (0-0.2); COMPLETE YES; HEMATOCRIT 39.3 % (37-47); IG% 0.2 %; LYMPH % 5.9 %; LYMPH ABS # 0.72 K/uL (1.2-3.4); MEAN CELL VOLUME 89.9 fL (80-100); MEAN CORPUSCULAR HEMOGLOBIN 32.5 pg (25-34); MEAN CORPUSCULAR HGB CONC 36.1 g/dl (32-36); MEAN PLATELET VOLUME 10.2 fL (7.4-10.4); MONO % 4.9 %; NEUT % 88.9 %; PLATELET COUNT 280 K/uL (130-400); RED BLOOD COUNT 4.37 M/uL (4.2-5.4); WHITE BLOOD COUNT 12.25 K/uL (4.8-10.8)
[2017-01-12 09:47] LABS: ALT/SGPT 22 U/L (12-78); BLOOD UREA NITROGEN 10 mg/dl (7-18); BUN/CREATININE RATIO 7.4 (10-20); CARBON DIOXIDE 22 mmol/L (21-32); CHLORIDE 105 mmol/L (98-107); GLUCOSE 124 mg/dl (70-99); SODIUM 138 mmol/L (136-145)
[2017-01-12 09:51] LABS: ALKALINE PHOSPHATASE 71 U/L (45-117); AST/SGOT 24 U/L (15-37)
--- NOTE | 2017-01-12 10:25 | DIAGNOSTIC IMAGING REPORT ---
CHEST 2 VIEWS ROUTINE CLINICAL HISTORY: SOB, hypoxia dyspnea COMPARISON STUDY: 12/31/2016 FINDINGS: Bipolar cardiac pacemaker. Diaphragms smooth. Mild emphysematous change. No focal infiltrate. IMPRESSION: Chronic change. No acute process. Electronically signed by: Thad Sheppard M.D. 01/12/2017 10:24 AM Dictated Date/Time: 01/12/2017 10:23 AM
--- NOTE | 2017-01-12 11:08 | EMERGENCY ROOM VISIT NOTE ---
ED Visit Note First contact with patient: 08:58 67-year-old female recently diagnosed with the flu was fully evaluated by Trent Mina PA-C. Please see his note. I also independently evaluated the patient. The patient now has a fever elevated white count and elevated lactic acid. The patient's also hypoxic. The patient will require further evaluation in the hospital.
[2017-01-12] MEDS ORDERED: MAGNESIUM HYDROXIDE SUSP 30 ML UDC PO PRN (11:45)
[2017-01-12] MEDS ORDERED: ACETAMINOPHEN 325 MG TAB PO PRN (11:45)
[2017-01-12] MEDS ORDERED: POLYETHYLENE (MIRALAX) 17 GM PACK PO PRN (11:45)
[2017-01-12] MEDS ORDERED: TRAMADOL HCL 50 MG TAB PO PRN (11:45)
[2017-01-12] MEDS ORDERED: ONDANSETRON INJ 2 MG/ML 2 ML VIAL IV PRN (11:45)
[2017-01-12] MEDS ORDERED: METOPROLOL TARTRATE 25 MG TAB PO PRN (11:45)
[2017-01-12] MEDS ORDERED: ACETAMINOPHEN 325 MG TAB ONE (11:57)
[2017-01-12] MEDS ORDERED: OPTIRAY 320 IV PRN (12:15)
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
--- NOTE | 2017-01-12 12:54 | DIAGNOSTIC IMAGING REPORT ---
CHEST CTA for PULMONARY ARTERIES CT DOSE: 231.90 mGy.cm HISTORY: Chest pain dyspnea TECHNIQUE: Multiaxial CT images of the chest were performed following the intravenous administration of contrast to evaluate the pulmonary arteries. Maximal intensity projection images were also obtained. COMPARISON STUDY: None. FINDINGS: There is a normal caliber thoracic aorta with no evidence for dissection. There is no evidence for pulmonary embolus. No pleural effusions. No pneumothorax. The liver and spleen are unremarkable. No mediastinal or hilar lymphadenopathy. The central airways are patent. Scattered bibasilar infiltrative change. Minimal infiltrative change right middle lobe. Small hiatal hernia. Minimal atelectatic change posterior aspect right as well as left lower lobe regions. Thoracic aorta shows no evidence for dissection. IMPRESSION: 1. Study is negative for pulmonary embolus. 2. Scattered bilateral parenchymal infiltrative change as described. Electronically signed by: Thad Sheppard M.D. 01/12/2017 12:53 PM Dictated Date/Time: 01/12/2017 12:50 PM
[2017-01-12] MEDS ORDERED: PNEUMOCOCCAL ADMINISTRATION CHARGE ONE (13:00)
[2017-01-12] MEDS ORDERED: PNEUMOCOCCAL POLYSACCHARIDES 25 MCG/0.5 ML VIAL/SYR IM. ONE (13:00)
[2017-01-12 13:10] VITALS: BP 150/83; PULSE 140; TEMP 36.4; O2SAT 98; Ht 172.7 cm; Wt 64.0 kg
[2017-01-12 13:39] VITALS: PULSE 122
[2017-01-12] MEDS ORDERED: LEVOFLOXACIN CONSULT ACTIVE PRN (14:00)
[2017-01-12 14:02] LABS: INFLUENZA A PCR Neg for Influ A (NEG); INFLUENZA B PCR Neg for Influ B (NEG)
[2017-01-12] MEDS: SODIUM CHLORIDE 0.9% 1000ML 1,000 ML IV SCH (14:52)
[2017-01-12] MEDS ORDERED: VANCOMYCIN INJ 1,000 MG in SODIUM CHLORIDE 0.9% 250ML 250 ML IV STA (14:58)
[2017-01-12] MEDS ORDERED: LEVOFLOXACIN / D5W 500 MG in PREMIXED IN D5W 100 ML IV SCH (15:00)
[2017-01-12] MEDS: ALBUT/IPRATROP 3MG/0.5MG NEB 3 ML VIAL INH SCH ×3 (15:02→20:27)
[2017-01-12 15:06] VITALS: PULSE 114; O2SAT 96
[2017-01-12 15:07] LABS: INR 1.1 (0.9-1.1); PROTHROMBIN TIME (PATIENT) 11.8 SECONDS (9.0-12.0)
[2017-01-12] MEDS ORDERED: VANCOMYCIN CONSULT ACTIVE PRN (15:30)
[2017-01-12 15:34] VITALS: BP 108/58; PULSE 124; TEMP 37.1; O2SAT 99
[2017-01-12] MEDS: METHYLPREDNISOLONE IV 40 MG in SYRINGE 0 ML IV SCH ×2 (15:49→21:45)
--- NOTE | 2017-01-12 16:33 | Pharmacy Progress Note ---
Pharmacy Antibiotic Consult Date of Service: Jan 12, 2017. Pharmacy Dosing Scope Pharmacy is consulted to initiate vancomycin IV dosing therapy, order appropriate labs and adjust drug dose/frequency. Subjective The patient is a 67 year old female admitted on Jan 12, 2017 at 11:46 with worsening of SOB/fevers. She was previously admitted with influenza and was treated with tamiflu. At home, she progressively worsened with decreased oxygenation and fevers. She eventually came to the ED. She remains tachycardiac with increased WBC. Objective Height (Feet): 5 Height (Inches): 8.00 Weight (Kilograms): 64.000 Lab Results (24hrs): Laboratory Tests Test 01/12/17 08:33 BUN/Creatinine Ratio 7.4 Blood Urea Nitrogen 10 mg/dl Creatinine 1.30 mg/dl White Blood Count 12.25 K/uL Red Blood Count 4.37 M/uL Hemoglobin 14.2 g/dL Hematocrit 39.3 % Mean Corpuscular Volume 89.9 fL Mean Corpuscular Hemoglobin 32.5 pg Mean Corpuscular Hemoglobin Concent 36.1 g/dl Platelet Count 280 K/uL Mean Platelet Volume 10.2 fL Neutrophils (%) (Auto) 88.9 % Lymphocytes (%) (Auto) 5.9 % Monocytes (%) (Auto) 4.9 % Eosinophils (%) (Auto) 0.0 % Basophils (%) (Auto) 0.1 % Neutrophils # (Auto) 10.89 K/uL Lymphocytes # (Auto) 0.72 K/uL Monocytes # (Auto) 0.60 K/uL Eosinophils # (Auto) 0.00 K/uL Basophils # (Auto) 0.01 K/uL Assessment & Plan Loading dose: vancomycin 1600 (25 mg/kg) mg IV X 1 dose then: vancomycin 900 mg IV every 18 hours (population pharmacokinetics suggest a half-life of 17.3 hrs with an elimination constant of 0.04 hr-1; currently dose is 14 mg/kg). Goal peak level estimate: between 35 - 40 mcg/mL. Goal trough level estimate: between 15 - 20 mcg/mL (indication: pneumonia). Trough has been ordered for: prior to 0400 dose --> this WILL NOT represent a true trough but will give an idea regarding what the patient's trough is. Pharmacy will continue to follow and will adjust dose/frequency as necessary. Thank you
[2017-01-12] MEDS ORDERED: VANCOMYCIN INJ 1,600 MG in SODIUM CHLORIDE 0.9% 500ML 500 ML IV ONE (16:45)
[2017-01-12 16:55] LABS: URINE APPEARANCE CLEAR (CLEAR); URINE BILIRUBIN NEG (NEG); URINE COLOR YELLOW; URINE EPITHELIAL CELL AUTO >30 /lpf (0-5); URINE NITRITE NEG (NEG); URINE SPECIFIC GRAVITY > 1.045 (1.000-1.030); UROBILINOGEN NEG (NEG)
[2017-01-12 16:56] LABS: MANUAL MICROSCOPIC REQUIRED? NO; REVIEW REQ? NO
[2017-01-12] MEDS: CEFEPIME IV 1,000 MG in DEXTROSE 5% 100ML 100 ML IV SCH (17:53)
[2017-01-12 19:20] VITALS: PULSE 114; O2SAT 96
[2017-01-12] MEDS: HEPARIN SOD 5000 UNIT/0.5 ML CARP SQ SCH (21:47)
[2017-01-13] VITALS (7 sets, daily range): BP systolic 115–123; BP diastolic 70–81; PULSE 77–109; TEMP 36.6–36.7; O2SAT 91–98
[2017-01-13] MEDS: SODIUM CHLORIDE 0.9% 1000ML 1,000 ML IV SCH (01:21)
[2017-01-13] MEDS: METHYLPREDNISOLONE IV 40 MG in SYRINGE 0 ML IV SCH ×2 (05:33→13:52)
[2017-01-13 07:12] LABS: COMPLETE YES; HEMATOCRIT 33.6 % (37-47); IG% 0.4 %; LYMPH % 3.3 %; LYMPH ABS # 0.36 K/uL (1.2-3.4); MEAN CORPUSCULAR HEMOGLOBIN 31.9 pg (25-34); MEAN CORPUSCULAR HGB CONC 36.3 g/dl (32-36); MEAN PLATELET VOLUME 9.8 fL (7.4-10.4); MONO % 0.3 %; PLATELET COUNT 207 K/uL (130-400); RED BLOOD COUNT 3.82 M/uL (4.2-5.4); WHITE BLOOD COUNT 10.79 K/uL (4.8-10.8)
[2017-01-13] MEDS: ALBUT/IPRATROP 3MG/0.5MG NEB 3 ML VIAL INH SCH ×3 (07:15→19:08)
[2017-01-13 07:53] LABS: BUN/CREATININE RATIO 12.6 (10-20); CALCIUM 8.3 mg/dl (8.5-10.1); POTASSIUM 4.5 mmol/L (3.5-5.1)
[2017-01-13] MEDS: MULTIVITAMIN TAB PO SCH (08:28)
[2017-01-13] MEDS: PANTOprazole SOD 40 MG TAB PO SCH (08:28)
[2017-01-13] MEDS: METOPROLOL SUCC 50MG EXT REL TAB PO SCH (08:28)
[2017-01-13] MEDS: HEPARIN SOD 5000 UNIT/0.5 ML CARP SQ SCH ×2 (08:31→20:22)
[2017-01-13] MEDS ORDERED: AZITHROMYCIN IV 500 MG in DEXTROSE 5% 250ML 250 ML IV SCH (09:00)
[2017-01-13] MEDS ORDERED: METOPROLOL SUCC 50MG EXT REL TAB PO SCH (09:00)
[2017-01-13] MEDS ORDERED: VANCOMYCIN INJ 900 MG in SODIUM CHLORIDE 0.9% 250ML 250 ML IV SCH (11:00)
[2017-01-13] MEDS ORDERED: LEVOFLOXACIN 750MG / D5W IV SCH (14:00)
[2017-01-13] MEDS ORDERED: LEVOFLOXACIN 250MG / D5W IV SCH (14:00)
--- NOTE | 2017-01-13 14:47 | Progress Note ---
Subjective Date of Service: Jan 13, 2017. Subjective Pt evaluation today including: conversation w/ patient, physical exam, lab review, review of inpatient medication list Pain: denies pain PO Intake: adequate Voiding: no voiding problems patient says that she is breathing better since time of admission admits to weakness and fatigue, productive cough, no fever or chills overnight Problem List Medical Problems: (1) Dehydration Status: Acute (2) Influenza Status: Acute (3) Weakness Status: Acute Review of Systems Constitutional: + fatigue, + weakness Respiratory: + cough, + dyspnea on exertion, + sputum All Other Systems: Reviewed and Negative Medications Current Inpatient Medications Medications (Trade) Dose Ordered Sig/Faraz Route Start Time Stop Time Status Last Admin Dose Admin Acetaminophen (Tylenol Tab) 650 mg Q4H PRN PO 01/12/17 11:45 02/11/17 11:44 Magnesium Hydroxide (Milk Of Magnesia Susp) 30 ml Q6H PRN PO 01/12/17 11:45 02/11/17 11:44 Polyethylene (Miralax Powder Packet) 17 gm DAILY PRN PO 01/12/17 11:45 02/11/17 11:44 Ondansetron HCl (Zofran Inj) 4 mg Q6H PRN IV 01/12/17 11:45 02/11/17 11:44 Heparin Sodium (Porcine) (Heparin Sq 5000 Unit/0.5ml) 5,000 unit Q12H SQ 01/12/17 21:00 02/11/17 20:59 01/13/17 08:31 5,000 UNIT Metoprolol Tartrate (Lopressor Tab) 25 mg Q8 PRN PO 01/12/17 11:45 02/11/17 11:44 Multivitamins (Multivitamin Tab) 1 tab DAILY PO 01/13/17 09:00 02/12/17 08:59 01/13/17 08:28 1 TAB Tramadol HCl (Ultram Tab) 50 mg BID PRN PO 01/12/17 11:45 02/11/17 11:44 01/12/17 16:30 50 MG Pantoprazole Sodium (Protonix Tab) 40 mg QAM PO 01/13/17 09:00 02/12/17 08:59 01/13/17 08:28 40 MG Albuterol/ Ipratropium 3 ml 3 ml QIDR INH 01/12/17 12:00 02/11/17 11:59 01/13/17 07:15 3 ML Methylprednisolone Sodium Succinate/ Syringe (Solu-Medrol IV/ Syringe) 0.64 ml @ 1.5 mls/min Q8 IV 01/12/17 15:00 02/11/17 14:59 01/13/17 13:52 1.5 MLS/MIN Ioversol (Optiray 320) 125 ml UD PRN IV 01/12/17 12:15 01/16/17 12:14 Levofloxacin (Consult) 1 ea UD PRN N/A 01/12/17 14:00 02/11/17 13:59 Metoprolol Succinate 100 mg 100 mg DAILY PO 01/13/17 09:00 02/12/17 08:59 01/13/17 08:28 100 MG Cefepime HCl 1000 mg/Dextrose 111.3 ml @ 200 mls/hr DAILY@1700 IV 01/12/17 17:00 01/19/17 16:59 01/12/17 17:53 200 MLS/HR Levofloxacin/Prmx (Levaquin / D5W/ Premixed D5W) 150 ml @ 100 mls/hr Q24H IV 01/13/17 14:00 01/18/17 15:29 01/13/17 13:52 100 MLS/HR Objective Vital Signs Date Time Temp Pulse Resp B/P Pulse Ox O2 Delivery O2 Flow Rate FiO2 01/13/17 11:38 98 01/13/17 08:00 Nasal Cannula 3.0 01/13/17 07:41 36.6 105 16 117/72 94 01/13/17 07:17 89 16 97 Nasal Cannula 2.0 01/13/17 00:41 36.7 109 18 115/70 98 2.0 01/13/17 00:00 Nasal Cannula 2.0 01/12/17 19:20 114 16 96 Nasal Cannula 2.0 01/12/17 16:00 Nasal Cannula 2.0 01/12/17 15:34 37.1 124 20 108/58 99 Nasal Cannula 2.0 01/12/17 15:06 114 16 96 Nasal Cannula 2.0 Physical Exam General Appearance: no apparent distress, + thin Neck: supple, no adenopathy, no JVD, trachea midline Respiratory/Chest: chest non-tender, normal breath sounds, no respiratory distress, no accessory muscle use, + rhonchi (bilaterally, upper airways, clear with cough) Cardiovascular: regular rate, rhythm, no edema, no gallop, no JVD, no murmur Abdomen: normal bowel sounds, non tender, soft, no organomegaly Extremities: normal range of motion, non-tender, normal inspection, no pedal edema, no calf tenderness Neurologic/Psychiatric: fundraising manager II-XII nml as tested, no motor/sensory deficits, alert, normal mood/affect, oriented x 3 Skin: normal color, warm/dry, no rash Lymphatic: no adenopathy Laboratory Results Last 24 Hours Test 01/12/17 14:50 01/12/17 16:40 01/13/17 07:00 Prothrombin Time 11.8 SECONDS Prothromb Time International Ratio 1.1 Lactic Acid Level 2.3 mmol/L 1.5 mmol/L Urine Color YELLOW Urine Appearance CLEAR Urine pH 5.0 Urine Specific [place] > 1.045 Urine Protein NEG Urine Glucose (UA) NEG Urine Ketones NEG Urine Occult Blood NEG Urine Nitrite NEG Urine Bilirubin NEG Urine Urobilinogen NEG Urine Leukocyte Esterase SMALL Urine WBC (Auto) 10-30 /hpf Urine RBC (Auto) 0-4 /hpf Urine Hyaline Casts (Auto) 1-5 /lpf Urine Epithelial Cells (Auto) >30 /lpf Urine Bacteria (Auto) NEG White Blood Count 10.79 K/uL Red Blood Count 3.82 M/uL Hemoglobin 12.2 g/dL Hematocrit 33.6 % Mean Corpuscular Volume 88.0 fL Mean Corpuscular Hemoglobin 31.9 pg Mean Corpuscular Hemoglobin Concent 36.3 g/dl Platelet Count 207 K/uL Mean Platelet Volume 9.8 fL Neutrophils (%) (Auto) 96.0 % Lymphocytes (%) (Auto) 3.3 % Monocytes (%) (Auto) 0.3 % Eosinophils (%) (Auto) 0.0 % Basophils (%) (Auto) 0.0 % Neutrophils # (Auto) 10.36 K/uL Lymphocytes # (Auto) 0.36 K/uL Monocytes # (Auto) 0.03 K/uL Eosinophils # (Auto) 0.00 K/uL Basophils # (Auto) 0.00 K/uL RDW Standard Deviation 41.3 fL RDW Coefficient of Variation 12.9 % Immature Granulocyte % (Auto) 0.4 % Immature Granulocyte # (Auto) 0.04 K/uL Sodium Level 139 mmol/L Potassium Level 4.5 mmol/L Chloride Level 104 mmol/L Carbon Dioxide Level 23 mmol/L Anion Gap 12.0 mmol/L Blood Urea Nitrogen 13 mg/dl Creatinine 1.00 mg/dl Est Creatinine Clear Calc Drug Dose 54.3 ml/min Estimated GFR () 67.0 Estimated GFR (Non- 57.8 BUN/Creatinine Ratio 12.6 Random Glucose 155 mg/dl Calcium Level 8.3 mg/dl Assessment and Plan This is a 67 yo F with PMHx of sick sinus syndrome s/p pacemaker placement 7 years ago, Mobitz Type II AV block, Parinsons-like syndrome, migraines, ambulatory dysfunction and recent admission for Influenza A from 12/31-01/01 where she was treated with tamiflu, presenting with hypoxia. - Bacterial pneumonia, bibasilar, right middle lobe secondary to recent influenza infection initially treated with Vancomycin, Levaquin, Cefepime, will d/c Vanco since MRSA negative afebrile since admission, WBC now normal and breathing better will require 7 days of antibiotics, continue Levaquin and Cefepime for now, likely taper to just Levaquin nebulizers no wheezing on exam, will quickly taper off steroids - Acute hypoxic respiratory failure: secondary to pneumonia treat infection, increase activity level, try to wean off oxygen as tolerated may need a two step prior to discharge - Elevated lactic acid: resolved now, was likely due to hypoxia Sick sinus syndrome status post pacemaker placement 7 years ago - Cont metoprolol succinate 100 mg QAm - Continue metoprolol tartrate 25 mg prn for SBP > 160 or DBP > 100 Parkinsons-like syndrome Ambulatory Dysfunction - Resting tremor at baseline - PT/OT evals CKD, stage III - Creatinine currently 1.0, was 1.3 yesterday - Renally dose medications including Levaquin - Avoid nephrotoxins - making adequate urine today - stop fluids tomorrow AM DVT ppx: Heparin sq Q12, Harris/SCDs CODE STATUS: Full code Disposition: PT/OT evaluation, likely d/c to home once medically stable
[2017-01-13] MEDS: CEFEPIME IV 1,000 MG in DEXTROSE 5% 100ML 100 ML IV SCH (17:18)
--- NOTE | 2017-01-13 18:18 | EMERGENCY ROOM VISIT NOTE ---
History First contact with patient: 08:58 Chief Complaint: RESPIRATORY DISTRESS Stated Complaint: HYPOXIA Nursing Triage Summary: pt reports she has been sob since last week dx with flu . this am home health came to see her and recommended she come to ed for eval. pt has non productive cough. no swelling in lower extremities History of Present Illness The patient is a 67 year old white female who presents to the Emergency Room with complaints of shortness of breath since earlier in the week. Symptoms became acutely worse today. She is at home and does receive home health. The nurse evaluating her this morning recommended she come to the ED for evaluation. Patient denies any known fevers. She has had chills and sweats. She was admitted underwear first and diagnosed with influenza. She was discharged on the second. She states initially she did fine at home but has worsened. She denies any chest pain. No nausea or vomiting. No diarrhea. No rhinorrhea. She does have a cough but it is nonproductive. She arrives by ALS. Her oxygen saturation when checked by EMS was reportedly 84%. She did receive a DuoNeb enroute. Review of Systems REVIEW OF SYSTEM: HEENT: No dizziness, visual problems, hearing loss, or tinnitus. There is no difficulty swallowing and no oral lesions are present. PULMONARY: Positive cough, shortness of breath, and sputum production. CARDIOVASCULAR: No chest pain or peripheral edema. GASTROINTESTINAL: No diarrhea, constipation, nausea, vomiting, or abdominal pain. GENITOURINARY: No dysuria, frequency, urgency or nocturia. NEUROLOGIC: No weakness, muscle tenderness, epilepsy or history of neurological problems. Positive for migraine headaches. MUSCULOSKELETAL: No history of joint tenderness/swelling. Positive history of arthritis and arthralgias. SKIN: No rashes or lesions. PSYCHIATRIC: No history of depression or mental illness. ENDOCRINE: No history of diabetes, thyroid disorders, or abnormal hair growth. Past Medical/Surgical History Medical Problems: (1) Hypoxia (2) Mobitz type II atrioventricular block (3) Tachycardia Family History Noncontributory. Social History Smoking Status: Never Smoker ( does smoke.) Smokeless Tobacco Use: No Alcohol Use: none Drug Use: none Marital Status: Housing Status: lives with family Occupation Status: retired Current/Historical Medications Scheduled Alendronate Sodium (Fosamax), 70 MG PO WK Cholecalciferol (Vitamin D), 100 UNITS PO DAILY Cyanocobalamin (Vitamin B12), 1,000 MCG PO DAILY Fish Oil ([place]-3), 1,000 MG PO BID Metoprolol Succ (Toprol Xl) (Toprol-Xl ), 100 MG PO DAILY Multiple Vitamin (Multivitamin), 1 TAB PO DAILY Omeprazole (Prilosec), 20 MG PO DAILY Sumatriptan Succinate (Imitrex), 50 MG PO PRN Tramadol (Ultram), 50 MG PO BID PRN Trimethoprim (Proloprim), 100 MG PO HS Scheduled PRN Metoprolol Tartrate (Lopressor) (Lopressor), 25 MG PO Q8 PRN Allergies Coded Allergies: Penicillins (Verified Allergy, Intermediate, HIVES, 01/12/17) Received cefazolin x3 doses in 2010 Codeine (Unverified Allergy, Unknown, BLOOD PRESSURE DROPS, 01/12/17) Morphine (Verified Allergy, Unknown, HYPOTENSION, 01/12/17) Physical Exam Vital Signs Date Time Temp Pulse Resp B/P Pulse Ox O2 Delivery O2 Flow Rate FiO2 01/12/17 10:21 118 26 143/88 92 Nasal Cannula 01/12/17 09:20 116 01/12/17 09:17 97 Nasal Cannula 4.0 01/12/17 09:15 84 Room Air 01/12/17 09:08 38.5 122 20 145/85 84 Room Air 01/12/17 09:08 84 Room Air Pain Rating (0-10): 0.0 Physical Exam Gen.: Frail, elderly white female, in obvious discomfort. Nasal cannula placed. No acute distress. Appears older than stated age. Skin:Warm and dry with fair turgor. No rashes or lesions. No ecchymosis or erythema. The patient is not diaphoretic. No abrasions. HEENT: Normocephalic atraumatic. Eyes PERRLA, EOMI. No conjunctiva or scleral injection. Ears TMs intact bilaterally with good light reflexes. No erythema or bulging. No hemotympanum. Canals are patent. Nares patent bilaterally without turbinate enlargement. No significant drainage. No epistaxis. Oropharynx without erythema or exudate. Uvula midline, oral mucosa moist. No lesions present. Dentures are in place. Lymphatics are palpated without anterior or posterior chain enlargement or tenderness. Heart: Heart tachycardic. Normal rhythm. No MGR. Peripheral pulses are 2+. Lungs: Lungs are clear to auscultation. No crackles rhonchi or wheezing. Fair air movement. Frequent nonproductive cough. The patient is able to take a deep breath. Abdomen: Abdomen was inspected, auscultated, and palpated. Bowel sounds present x 4. Soft, nontender to palpation. No hepato-splenomegaly. No masses noted. No rebound. No CVA tenderness. Musculoskeletal: Gross motor function of the upper and lower extremities is intact and unremarkable. No peripheral edema. No pain with palpation of the chest wall. Neurologic: Gross sensation is intact across the upper and lower extremities by soft touch. Medical Decision & Procedures ER Provider Diagnostic Interpretation: Chest x-ray obtained today was read by radiology. She has chronic changes. No acute process. EKG obtained today was reviewed with Dr. Dean. Tachycardic with a rate of 120. Motion artifact. No acute ST or T-wave changes. Laboratory Results Test 01/12/17 08:33 Total Bilirubin 0.8 mg/dl (0.2-1) Aspartate Amino Transf (AST/SGOT) 24 U/L (15-37) Alanine Aminotransferase (ALT/SGPT) 22 U/L (12-78) Alkaline Phosphatase 71 U/L (45-117) Troponin I < 0.015 ng/ml (0-0.045) Total Protein 7.3 gm/dl (6.4-8.2) Albumin 3.7 gm/dl (3.4-5.0) Globulin 3.6 gm/dl (2.5-4.0) Albumin/Globulin Ratio 1.0 (0.9-2) CBC, chem panel, CK/CK-MB, troponin, and lactic acid were obtained. Blood cultures were also obtained. Cultures are pending. Mild elevation in white count at 12.2. Cardiac enzymes are unremarkable. Lactic acid is elevated at 2.4. Medications Administered Medications (Trade) Dose Ordered Sig/Faraz Route Start Time Stop Time Status Last Admin Dose Admin Tramadol HCl (Ultram Tab) 50 mg BID PRN PO 01/12/17 11:45 02/11/17 11:44 01/12/17 16:30 50 MG ED Course Patient was educated regarding today's findings. Conservative care measures were discussed. She did receive a DuoNeb in the ambulance. I suspect this is the reason for her tachycardia. Breathing improved slightly. She remains hypoxic on room air. She is only at roughly 92% by nasal cannula. She drops to 84% on room air. She is also febrile. Mild elevation in white count, which may be residual from her previous influenza. It may also be a new infection. She may require additional imaging. Lactic acid is also elevated. Admission was discussed with the patient. She is in agreement. Hospitalist service was contacted. Please see that note for final management. I will not start antibiotics as I do not have a source of infection and this may be viral. Continue the supplemental O2. Patient was seen in conjunction with Dr. Dean, who also evaluated the patient and concurred with today's diagnosis and treatment plan. Medical Decision Possibility of pneumonia, bronchitis, influenza, and PE were considered. Impression Primary Impression: Hypoxia Additional Impression: Shortness of breath Departure Information Dispostion Being Evaluated By Hospitalist Condition GOOD Referrals RV. Shelton MD (PCP) Forms HOME CARE DOCUMENTATION FORM, IMPORTANT VISIT INFORMATION Patient Instructions COPD - [facility], Croup - [facility], Asthma - [facility], My [facility] Problem Qualifiers
[2017-01-14] VITALS (9 sets, daily range): BP systolic 109–135; BP diastolic 59–77; PULSE 70–93; TEMP 36.7–36.9; O2SAT 95–100
[2017-01-14] MEDS ORDERED: VANCOMYCIN TROUGH SCH (03:30)
[2017-01-14] MEDS: ALBUT/IPRATROP 3MG/0.5MG NEB 3 ML VIAL INH SCH ×3 (07:08→15:15)
[2017-01-14 07:16] LABS: HEMATOCRIT 32.7 % (37-47); MEAN CELL VOLUME 88.1 fL (80-100); MEAN CORPUSCULAR HEMOGLOBIN 32.1 pg (25-34); MEAN CORPUSCULAR HGB CONC 36.4 g/dl (32-36); PLATELET COUNT 250 K/uL (130-400); RED BLOOD COUNT 3.71 M/uL (4.2-5.4); WHITE BLOOD COUNT 13.86 K/uL (4.8-10.8)
[2017-01-14 07:52] LABS: BUN/CREATININE RATIO 12.3 (10-20); CALCIUM 7.9 mg/dl (8.5-10.1); CREATININE 1.1 mg/dl (0.60-1.20); POTASSIUM 4.4 mmol/L (3.5-5.1)
[2017-01-14] MEDS: MULTIVITAMIN TAB PO SCH (08:00)
[2017-01-14] MEDS: PANTOprazole SOD 40 MG TAB PO SCH (08:01)
[2017-01-14] MEDS: METOPROLOL SUCC 50MG EXT REL TAB PO SCH (08:02)
[2017-01-14] MEDS: HEPARIN SOD 5000 UNIT/0.5 ML CARP SQ SCH ×2 (08:38→21:04)
--- NOTE | 2017-01-14 10:48 | Progress Note ---
Subjective Date of Service: Jan 14, 2017. Subjective Pt evaluation today including: conversation w/ patient, physical exam, lab review, review of inpatient medication list Pain: denies pain PO Intake: poor appetite Voiding: no voiding problems breathing is stable, mild cough, occasionally productive poor appetite, reports that this has been for 6-7 months, lost 30 lbs unintentionally she attributes loss of appetite, weakness to Parkinson's that was diagnosed 5 months ago she denies depression although her affect is very flat she says that her family has not voiced concerns about weight loss overall she feels weak but good enough to go home tomorrow Problem List Medical Problems: (1) Dehydration Status: Acute (2) Influenza Status: Acute (3) Shortness of breath Status: Acute (4) Weakness Status: Acute Review of Systems Constitutional: + fatigue, + weakness Respiratory: + cough, + dyspnea on exertion Abdomen: + problem reported (poor appetite) All Other Systems: Reviewed and Negative Medications Current Inpatient Medications Medications (Trade) Dose Ordered Sig/Faraz Route Start Time Stop Time Status Last Admin Dose Admin Acetaminophen (Tylenol Tab) 650 mg Q4H PRN PO 01/12/17 11:45 02/11/17 11:44 01/14/17 00:33 650 MG Magnesium Hydroxide (Milk Of Magnesia Susp) 30 ml Q6H PRN PO 01/12/17 11:45 02/11/17 11:44 Polyethylene (Miralax Powder Packet) 17 gm DAILY PRN PO 01/12/17 11:45 02/11/17 11:44 Ondansetron HCl (Zofran Inj) 4 mg Q6H PRN IV 01/12/17 11:45 02/11/17 11:44 Heparin Sodium (Porcine) (Heparin Sq 5000 Unit/0.5ml) 5,000 unit Q12H SQ 01/12/17 21:00 02/11/17 20:59 01/14/17 08:38 5,000 UNIT Metoprolol Tartrate (Lopressor Tab) 25 mg Q8 PRN PO 01/12/17 11:45 02/11/17 11:44 Multivitamins (Multivitamin Tab) 1 tab DAILY PO 01/13/17 09:00 02/12/17 08:59 01/14/17 08:00 1 TAB Tramadol HCl (Ultram Tab) 50 mg BID PRN PO 01/12/17 11:45 02/11/17 11:44 01/12/17 16:30 50 MG Pantoprazole Sodium (Protonix Tab) 40 mg QAM PO 01/13/17 09:00 02/12/17 08:59 01/14/17 08:01 40 MG Albuterol/ Ipratropium (Duoneb) 3 ml QIDR INH 01/12/17 12:00 02/11/17 11:59 01/14/17 07:08 3 ML Ioversol (Optiray 320) 125 ml UD PRN IV 01/12/17 12:15 01/16/17 12:14 Levofloxacin (Consult) 1 ea UD PRN N/A 01/12/17 14:00 02/11/17 13:59 Metoprolol Succinate 100 mg 100 mg DAILY PO 01/13/17 09:00 02/12/17 08:59 01/13/17 08:28 100 MG Cefepime HCl 1000 mg/Dextrose 111.3 ml @ 200 mls/hr DAILY@1700 IV 01/12/17 17:00 01/19/17 16:59 01/13/17 17:18 200 MLS/HR Levofloxacin/Prmx (Levaquin / D5W/ Premixed D5W) 150 ml @ 100 mls/hr Q24H IV 01/13/17 14:00 01/18/17 15:29 01/13/17 13:52 100 MLS/HR Prednisone (PredniSONE TAB) 40 mg QAM PO 01/14/17 09:00 02/13/17 08:59 01/14/17 08:01 40 MG Objective Vital Signs Date Time Temp Pulse Resp B/P Pulse Ox O2 Delivery O2 Flow Rate FiO2 01/14/17 08:00 98 Room Air 01/14/17 07:55 18 98 Room Air 01/14/17 07:25 36.9 79 18 109/59 100 1.0 01/14/17 07:08 70 16 96 Nasal Cannula 1.0 01/14/17 00:12 36.7 91 16 124/77 97 1.0 01/14/17 00:00 Nasal Cannula 2.0 01/13/17 20:00 Nasal Cannula 2.0 01/13/17 19:09 87 16 91 Nasal Cannula 1.0 01/13/17 16:00 Nasal Cannula 2.0 01/13/17 15:41 89 16 98 Nasal Cannula 2.5 01/13/17 14:46 36.7 77 18 123/81 97 Nasal Cannula 2.0 01/13/17 11:38 98 Physical Exam General Appearance: no apparent distress, + thin Eyes: normal inspection, EOMI, sclerae normal ENT: normal ENT inspection, hearing grossly normal, pharynx normal Neck: supple, no adenopathy, no JVD, trachea midline Respiratory/Chest: chest non-tender, no respiratory distress, no accessory muscle use, + rhonchi Cardiovascular: regular rate, rhythm, no edema, no gallop, no JVD, no murmur Abdomen: normal bowel sounds, non tender, soft, no organomegaly Extremities: normal range of motion, non-tender, normal inspection, no pedal edema, no calf tenderness Neurologic/Psychiatric: impress associate II-XII nml as tested, no motor/sensory deficits, alert, oriented x 3, + depressed affect Skin: normal color, warm/dry, no rash Laboratory Results Last 24 Hours Test 01/14/17 06:47 White Blood Count 13.86 K/uL Red Blood Count 3.71 M/uL Hemoglobin 11.9 g/dL Hematocrit 32.7 % Mean Corpuscular Volume 88.1 fL Mean Corpuscular Hemoglobin 32.1 pg Mean Corpuscular Hemoglobin Concent 36.4 g/dl RDW Standard Deviation 41.5 fL RDW Coefficient of Variation 12.8 % Platelet Count 250 K/uL Mean Platelet Volume 10.0 fL Sodium Level 138 mmol/L Potassium Level 4.4 mmol/L Chloride Level 103 mmol/L Carbon Dioxide Level 25 mmol/L Anion Gap 10.0 mmol/L Blood Urea Nitrogen 14 mg/dl Creatinine 1.10 mg/dl Est Creatinine Clear Calc Drug Dose 49.4 ml/min Estimated GFR () 59.7 Estimated GFR (Non- 51.5 BUN/Creatinine Ratio 12.3 Random Glucose 114 mg/dl Calcium Level 7.9 mg/dl Assessment and Plan This is a 67 yo F with PMHx of sick sinus syndrome s/p pacemaker placement 7 years ago, Mobitz Type II AV block, Parinsons-like syndrome, migraines, ambulatory dysfunction and recent admission for Influenza A from 12/31-01/01 where she was treated with tamiflu, presenting with hypoxia. - Bacterial pneumonia, bibasilar, right middle lobe secondary to recent influenza infection initially treated with Vancomycin, Levaquin, Cefepime, will d/c Vanco since MRSA negative afebrile since admission, WBC now normal and breathing better will require 7 days of antibiotics, d/c Cefepime today, continue Levaquin but change to PO nebulizers no wheezing on exam, will quickly taper off steroids, drop Prednisone to 30mg today - Acute hypoxic respiratory failure: secondary to pneumonia, resolved today, breathing room air treat infection, increase activity level - Elevated lactic acid: resolved now, was likely due to hypoxia Sick sinus syndrome status post pacemaker placement 7 years ago - Cont metoprolol succinate 100 mg QAm - Continue metoprolol tartrate 25 mg prn for SBP > 160 or DBP > 100 Parkinsons-like syndrome Ambulatory Dysfunction - Resting tremor at baseline - PT/OT evals CKD, stage III - Creatinine stable at 1.1 today - Renally dose medications including Levaquin - Avoid nephrotoxins - making adequate urine today - stop fluids DVT ppx: Heparin sq Q12, Harris/SCDs CODE STATUS: Full code Disposition: PT/OT evaluation, plan to d/c home with home health tomorrow
[2017-01-14] MEDS: LEVOFLOXACIN 750 MG TAB PO SCH (13:53)
[2017-01-14] MEDS: CEFEPIME IV 1,000 MG in DEXTROSE 5% 100ML 100 ML IV SCH (17:08)
[2017-01-14] MEDS: IPRATROPIUM BROMIDE/ALBUTEROL respimat INH INH SCH ×2 (17:09→21:03)
[2017-01-15 00:44] VITALS: BP 128/71; PULSE 96; TEMP 36.7; O2SAT 93
[2017-01-15 07:27] VITALS: BP 149/77; PULSE 87; TEMP 37; O2SAT 96
[2017-01-15] MEDS: METOPROLOL SUCC 50MG EXT REL TAB PO SCH (08:16)
[2017-01-15] MEDS: PANTOprazole SOD 40 MG TAB PO SCH (08:16)
[2017-01-15] MEDS: MULTIVITAMIN TAB PO SCH (08:16)
[2017-01-15] MEDS: IPRATROPIUM BROMIDE/ALBUTEROL respimat INH INH SCH ×2 (08:17→13:00)
[2017-01-15] MEDS: HEPARIN SOD 5000 UNIT/0.5 ML CARP SQ SCH (08:19)
[2017-01-15] MEDS ORDERED: PRD10 PO (10:01)
[2017-01-15] MEDS ORDERED: LVQ750 PO (10:01)
--- NOTE | 2017-01-15 10:06 | Discharge Instructions ---
Discharge Instructions Date of Service Jan 15, 2017. Admission Reason for Admission: Pneumonia, acute hypoxia Discharge Discharge Diagnosis / Problem: Pneumonia secondary to recent influenza Discharge Goals Goal(s): Improve function, Improve disease control Activity Recommendations Activity Limitations: resume your previous activity Lifting Limitations: none Exercise/Sports Limitations: as tolerated May Resume Sexual Activity: when tolerated Shower/Bathe: no limitations Driving or Machine Use: no limitations . Instructions / Follow-Up Instructions / Follow-Up Medications: - LEVAQUIN: antibiotic for pneumonia, first dose tomorrow morning, you will take 6 more doses - PREDNISONE: steroid for wheezing, complete a brief taper at home, starting tomorrow take 20mg (2 tablets) for two days then 10mg daily for two days and stop In summary, you had bacterial pneumonia secondary to recent influenza infection , you responded well to broad spectrum antibiotics and steroids, tapered back to just one antibiotic, Levaquin, that you will continue for 6 days as well as a brief Prednisone taper. You have been off of oxygen for two days and breathing better. Case management has set up home health visits. Stay well rested, drink plenty of fluids and try to eat more. FOLLOW UP - please call Dr. Louis's office today to set up follow up visit in 5-7 days, please say that you were hospitalized and need to be seen, thank you Current Hospital Diet Patient's current hospital diet: AHA Diet (Heart Healthy) Discharge Diet Recommended Diet: AHA Diet (Heart Healthy) Pending Studies Studies pending at discharge: no Laboratory Results Last Resulted CBC 01/14/17 06:47 Last Resulted BMP 01/14/17 06:47 Lipid Panel Test 01/08/17 15:04 Range/Units Triglycerides Level 234 H 0-150 mg/dl Cholesterol Level 206 H 0-200 mg/dl HDL Cholesterol 46 mg/dl Cholesterol/HDL Ratio 4.5 LDL Cholesterol, Calculated 113 mg/dl Medical Emergencies . Who to Call and When: Medical Emergencies: If at any time you feel your situation is an emergency, please call 911 immediately. . Non-Emergent Contact Non-Emergency issues call your: Primary Care Provider Call Non-Emergent contact if: you have a fever, you have any medication questions . . "Provider Documentation" section prepared by Ted Oneal. VTE Core Measure Inpt VTE Proph given/why not?: Unfractionated heparin SQ, T.E.D. Stockings, SCD 's [place] Drug Monitoring Program Search Results: no issues identified
--- NOTE | 2017-01-15 10:13 | Discharge Summary ---
Discharge Summary Date of Service Jan 15, 2017. Discharge Summary Admission Date: Jan 12, 2017 at 11:46 Discharge Date: Jan 15, 2017 Discharge Disposition: Home with services Principal Diagnosis: Bacterial pneumonia secondary to recent influenza Problems/Secondary Diagnoses: Acute hypoxic respiratory failure Immunizations: Have You Had Influenza Vaccine: No History of Tetanus Vaccine?: No History of Pneumococcal: No History of Hepatitis B Vaccine: No Procedures: none Consultations: none Medication Reconciliation New Medications: Levofloxacin (Levofloxacin) 750 Mg Tab 750 MG PO Q24H, #6 TAB 0 Refills Prednisone (Prednisone) 10 Mg Tab 30 MG PO QAM, #6 TAB 0 Refills Taper: starting tomorrow, take 20mg (2 tabs) daily x 2 days then 10mg daily x 2 days then stop Continued Medications: Alendronate Sodium (Fosamax) 70 Mg Tab 70 MG PO WK, TAB Cholecalciferol (Vitamin D) 1,000 Unit Tab 100 UNITS PO DAILY Cyanocobalamin (Vitamin B12) 1,000 Mcg Tab 1000 MCG PO DAILY Fish Oil ([place]-3) 1 Ea Cap 1000 MG PO BID, CAP Metoprolol Succ (Toprol Xl) (Toprol-Xl ) 100 Mg Tabcr 100 MG PO DAILY, TAB Metoprolol Tartrate (Lopressor) (Lopressor) 25 Mg Tab 25 MG PO Q8 PRN, TAB Multiple Vitamin (Multivitamin) 1 Tab Tab 1 TAB PO DAILY, TAB Omeprazole (Prilosec) 20 Mg Capcr 20 MG PO DAILY Sumatriptan Succinate (Imitrex) 50 Mg Tab 50 MG PO PRN, 0 Refills Tramadol (Ultram) 50 Mg Tab 50 MG PO BID PRN, 0 Refills PRN PAIN Discontinued Medications: Trimethoprim (Proloprim) 100 Mg Tab 100 MG PO HS, TAB Discharge Exam Patient doing well, breathing comfortably, coughing less and cough is more loose. She feels ready to go home. Ambulating at baseline. Home health set up. Review of Systems: Constitutional: + fatigue, + weakness, No chills, No fever, No problem reported, No sweats, No weight loss Eyes: No diplopia, No discharge, No eye pain, No problem reported, No redness, No worsening of vision ENT: No dental problems, No hearing loss, No nasal symptoms, No problem reported, No sore throat, No tinnitus, No trouble swallowing, No unusual epistaxis Respiratory: + cough, + sputum, No dyspnea at rest, No dyspnea on exertion, No hemoptysis, No shortness of breath, No wheezing Cardiovascular: No PND, No chest pain, No claudication, No edema, No orthopnea, No palpitations, No problem reported Abdomen: No GI bleeding, No constipation, No diarrhea, No nausea, No pain, No problem reported, No vomiting Musculoskeletal: No calf pain, No joint pain, No muscle pain, No problem reported, No swelling Genitourinary - Female: No dysuria, No urinary frequency, No urinary incontinence, No urinary urgency Neurologic: + weakness, No balance problems, No memory loss, No numbness/ tingling, No paralysis, No vertigo Psychiatric: + depression symptoms, No anhedonism, No anxiety, No insomnia, No problem reported, No substance abuse Endocrine: No excessive thirst, No excessive urination, No fatigue, No problem reported Hematologic / Lymphatic: No abnormal bleeding/bruising, No clotting problems , No night sweats, No problem reported, No swollen lymph nodes Integumentary: No bleeding, No color change, No itch, No new/changing skin lesions, No problem reported, No rash Physical Exam: General Appearance: no apparent distress, + thin Eyes: normal inspection, EOMI, sclerae normal ENT: normal ENT inspection, hearing grossly normal, pharynx normal Neck: supple, no adenopathy, no JVD, trachea midline Respiratory/Chest: chest non-tender, normal breath sounds, no respiratory distress, no accessory muscle use, + rhonchi (rhonchi, clear with cough) Cardiovascular: regular rate, rhythm, no edema, no gallop, no JVD, no murmur , normal peripheral pulses Abdomen / GI: normal bowel sounds, non tender, soft, no organomegaly Extremities: normal inspection, no calf tenderness, normal capillary refill , no pedal edema, normal range of motion, pelvis stable Neurologic/Psychiatric: police artist II-XII nml as tested, no motor/sensory deficits , alert, normal reflexes, oriented x 3, + depressed affect Skin: normal color, warm/dry, no rash Lymphatic: no adenopathy Hospital Course This is a 67 yo F with PMHx of sick sinus syndrome s/p pacemaker placement 7 years ago, Mobitz Type II AV block, Parinsons-like syndrome, migraines, ambulatory dysfunction and recent admission for Influenza A from 12/31-01/01 where she was treated with tamiflu, presenting with hypoxia. - Bacterial pneumonia, bibasilar, right middle lobe secondary to recent influenza infection initially treated with Vancomycin, Levaquin, Cefepime, d/c Vanco after 24 hours since MRSA negative afebrile since admission, WBC dropped to normal then went up to 13, this was attributed to steroids will require 10 days of antibiotics, d/c Cefepime yesterday, continue Levaquin 750mg PO daily x 6 more days nebulizers while hospitalized no wheezing on exam, will quickly taper off steroids, Prednisone 20mg x 2 days then 10mg x 2 days and stop - Acute hypoxic respiratory failure: secondary to pneumonia, resolved, breathing room air for 48 hours treat infection, increase activity level - Elevated lactic acid: resolved now, was likely due to hypoxia - Weight loss and poor appetite: patient attributes to Parkinson's seems like she has symptoms of depression, flat affect she says that her family is not concerned but she has reportedly lost 30lbs in past several months I encouraged her to discuss this issue further with her PCP patient really did not seem concerned or interested in discussing this topic Sick sinus syndrome status post pacemaker placement 7 years ago - Cont metoprolol succinate 100 mg QAm - Continue metoprolol tartrate 25 mg prn for SBP > 160 or DBP > 100 Parkinsons-like syndrome Ambulatory Dysfunction - Resting tremor at baseline - PT/OT evals CKD, stage III - Creatinine stable for several days - Renally dose medications including Levaquin - Avoid nephrotoxins - making adequate urine today - stop fluids DVT ppx: Heparin sq Q12, Harris/SCDs CODE STATUS: Full code Disposition: d/c home with home health Total Time Spent: Greater than 30 minutes This includes examination of the patient, discharge planning, medication reconciliation, and communication with other providers. Discharge Instructions Please refer to the electronic Patient Visit Report (Discharge Instructions) for additional information. Follow-Up Dr. Louis in one week Additional Copies To RV. Shelton MD
[2017-01-15 10:34] VITALS: BP 149/77; PULSE 87; TEMP 37; O2SAT 96
[2017-01-15] MEDS: LEVOFLOXACIN 750 MG TAB PO SCH (11:24)
== END 2017-01-15 13:30 | disposition home health service (06) | DRG 193 ==
LOC: ENRESERVDT → ENRESERVTM → EDBD 08:56 → C.EDB 08:58 → C.MS2W 11:46
PROVIDERS: ADMIT Internal Medicine; ATTEND Internal Medicine
DX: J15.9 Unspecified bacterial pneumonia (principal); J96.01 Acute respiratory failure with hypoxia; J44.0 Chronic obstructive pulmonary disease with (acute) lower respiratory infection; N18.3 Chronic kidney disease, stage 3 (moderate); G20 Parkinson's disease; G43.909 Migraine, unspecified, not intractable, without status migrainosus; I49.5 Sick sinus syndrome; F17.210 Nicotine dependence, cigarettes, uncomplicated; F31.9 Bipolar disorder, unspecified; Z95.0 Presence of cardiac pacemaker

== ENCOUNTER → 2017-02-24 | Outpatient (CLI) | payer OTHER ==
[~2017-02-24] MED LIST changes: -IMP/50 PO; +LVQ750 PO; +METO100T44 PO; -METO1TAB69 PO; +PRD10 PO; -TRIM100T20 PO
[2017-02-24 12:14] LABS: BASO % 0.7 %; BASO ABS # 0.03 K/uL (0-0.2); COMPLETE YES; EOS % 1.4 %; HEMATOCRIT 40.3 % (37-47); IG% 0.2 %; LYMPH % 39.4 %; LYMPH ABS # 1.72 K/uL (1.2-3.4); MEAN CELL VOLUME 94.8 fL (80-100); MEAN CORPUSCULAR HEMOGLOBIN 31.3 pg (25-34); MEAN PLATELET VOLUME 9.7 fL (7.4-10.4); NEUT % 53.3 %; PLATELET COUNT 230 K/uL (130-400); RED BLOOD COUNT 4.25 M/uL (4.2-5.4); WHITE BLOOD COUNT 4.37 K/uL (4.8-10.8)
[2017-02-24 12:37] LABS: ALT/SGPT 16 U/L (12-78); AST/SGOT 18 U/L (15-37); BLOOD UREA NITROGEN 12 mg/dl (7-18); BUN/CREATININE RATIO 9.7 (10-20); CALCIUM 8.9 mg/dl (8.5-10.1); CARBON DIOXIDE 29 mmol/L (21-32); CHLORIDE 106 mmol/L (98-107); GLUCOSE 101 mg/dl (70-99); POTASSIUM 4.2 mmol/L (3.5-5.1); SODIUM 142 mmol/L (136-145)
[2017-02-24 12:40] LABS: ALB/GLOB RATIO 1.1 (0.9-2); ALKALINE PHOSPHATASE 50 U/L (45-117)
[2017-02-28 08:41] LABS: LEAD BLOOD 1 MCG/DL (0-9); VIT B1 PLASMA(THIAMIN)**90353 9 nmol/L (8-30)
--- NOTE | 2017-03-20 09:23 | CODING QUERY MEDICAL NECESSITY ---
CQSUPPORTING DIAGNOSIS NEEDED A supporting diagnosis is required for the test/procedure performed on this patient in order for us to be reimbursed by the patient's insurance. Please provide a supporting diagnosis for the following test/procedure listed below next to the test name along with your signature. *If there is no additional diagnosis for this patient that would support the following test/procedure please document that below next to the test/procedure. Test(s)/Procedure(s) that require a supporting diagnosis: DOS 02/24/17 VITAMIN B1 TEST VITAMIN B6 TEST FOLIC ACID TEST Provider Signature: Date: Thank you Ana Paula Jimenez Health Information Management Once completed, please kindly fax back to [phone] For questions please call [phone]
== END | disposition home or self-care (01) ==
LOC: C.LAB1850 09:40
PROVIDERS: ATTEND Psychiatry & Neurology Neurology
DX: N18.3 Chronic kidney disease, stage 3 (moderate) (principal); J18.9 Pneumonia, unspecified organism; G62.9 Polyneuropathy, unspecified; D64.9 Anemia, unspecified; R26.89 Other abnormalities of gait and mobility; R53.83 Other fatigue; R00.2 Palpitations; R27.8 Other lack of coordination; E53.8 Deficiency of other specified B group vitamins; E55.9 Vitamin D deficiency, unspecified

== ENCOUNTER → 2017-03-25 | Outpatient (CLI) | payer OTHER ==
[2017-03-27 15:30] LABS: CREATININE UR 104 MG/DL (20-320)
== END | disposition home or self-care (01) ==
LOC: C.LAB1850 10:21
PROVIDERS: ATTEND Psychiatry & Neurology Neurology
DX: G62.9 Polyneuropathy, unspecified (principal)

== ENCOUNTER → 2017-06-12 | Outpatient (CLI) | payer OTHER ==
[~2017-06-12] MED LIST changes: -METO100T44 PO; +METO1TAB69 PO
== END | disposition home or self-care (01) ==
LOC: C.MAMM 14:58
PROVIDERS: ATTEND Internal Medicine
DX: M81.0 Age-related osteoporosis without current pathological fracture (principal)

== ENCOUNTER 2017-11-17 12:47 | Emergency (ER) | payer OTHER ==
[~2017-11-17 12:47] MED LIST changes: +METO100T44 PO; -METO1TAB69 PO
[2017-11-17 12:55] VITALS: TEMP 36.3; Ht 172.7 cm
[2017-11-17] MEDS ORDERED: SODIUM CHLORIDE 0.9% 250ML 250 ML IV STA ×2 (13:03→14:30)
[2017-11-17] MEDS ORDERED: PROCHLORPERAZINE 5 MG/ML 2 ML VIAL IV STA (13:03)
[2017-11-17] MEDS ORDERED: METHYLPREDNISOLONE 125 MG VIAL IV STA (13:03)
[2017-11-17] MEDS ORDERED: DiphenhydrAMINE HCL 50 MG/ML VIAL IV STA (13:03)
--- NOTE | 2017-11-17 13:15 | EMERGENCY ROOM VISIT NOTE ---
History Report prepared by Vik: Alba Melo Under the Supervision of: Dr. Samira Molina M.D. 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 She states that she had a headache seven days ago and she took a migraine medication. She notes the headache went away and then came back as a sinus headache. She notes the headache will not go away. She states that she went to an urgent care several days ago, though they did not help her. She notes sensitivity to lights, fatigue , headache, knee pain, and loss of appetite. She notes that she took Tylenol this morning, though no relief. The patient has a history of atrial fibrillation and back surgery years ago. The patient has a pacemaker in place. She denies diabetes. She denies any chest pain, back pain, shortness of breath, nausea, and vomiting. 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 Review of Systems See HPI for pertinent positives & negatives. A total of 10 systems reviewed and were otherwise negative. Past Medical & Surgical Medical Problems: (1) Atrial fibrillation (2) Hypoxia (3) Mobitz type II atrioventricular block (4) Tachycardia Surgical Problems: (1) History of back surgery Family History Family history was reviewed; no changes noted. Social History Smoking Status: Never Smoker Smokeless Tobacco Use: No Alcohol Use: none Drug Use: none Marital Status: Housing Status: lives with significant other Occupation Status: retired Current/Historical Medications Scheduled Cephalexin Monohydrate (Keflex), 500 MG PO BID Cholecalciferol (Vitamin D), 1,000 UNITS PO DAILY Cyanocobalamin (Vitamin B12), 1,000 MCG PO DAILY Duloxetine Hcl (Cymbalta), 60 MG PO DAILY Gabapentin (Neurontin), 300 MG PO TID Metoprolol Succ (Toprol Xl) (Toprol-Xl ), 100 MG PO DAILY Multiple Vitamin (Multivitamin), 1 TAB PO DAILY Omeprazole (Prilosec), 20 MG PO DAILY Prednisone (Prednisone), 10 MG PO DIRECTED Sumatriptan Succinate (Imitrex), 50 MG PO PRN Tramadol (Ultram), 50 MG PO BID PRN Allergies Coded Allergies: Penicillins (Verified Allergy, Intermediate, HIVES, 11/17/17) Received cefazolin x3 doses in 2010 Codeine (Unverified Allergy, Unknown, BLOOD PRESSURE DROPS, 11/17/17) Morphine (Verified Allergy, Unknown, HYPOTENSION, 11/17/17) Physical Exam Vital Signs Date Time Temp Pulse Resp B/P (MAP) Pulse Ox O2 Delivery O2 Flow Rate FiO2 11/17/17 13:54 89 20 130/81 99 11/17/17 13:12 95 11/17/17 12:55 36.3 105 18 136/76 94 Room Air Physical Exam Vital signs reviewed. General: Well-appearing in some discomfort, in no significant distress. HEENT: No scleral icterus, PERRLA, neck supple. Atraumatic. Cardiovascular: Regular rate and rhythm, no extra sounds. Pulmonary: Clear to auscultation bilaterally, normal work of breathing. Abdomen: Soft, nontender, nondistended, positive bowel sounds. Mild diffuse tenderness to abdomen. Musculoskeletal: Atraumatic, no peripheral edema. Mild diffuse tenderness to lower extremities along titus, without trauma. Neurologic: Patient awake alert and oriented x 3, full strength in all 4 extremities. Cranial nerves 2 through 12 grossly intact. Skin: Warm, dry, no rash Medical Decision & Procedures ER Provider Diagnostic Interpretation: Radiology results as stated below per my review and radiologist interpretation: HEAD WITHOUT CONTRAST (CT) CT DOSE: 638.56 mGycm HISTORY: Mental status change HEADACHE, HTN TECHNIQUE: Multiaxial CT images of the head were performed without the use of intravenous contrast. A dose lowering technique was utilized adhering to the principles of ALARA. Comparison: 06/06/2016 Findings: The paranasal sinuses and mastoid air cells are clear. The calvarium and skull base are intact. The ventricles and sulci are within normal limits. There is no mass, hematoma, midline shift, or acute infarct. Mild chronic small vessel change of aging Impression: No acute intracranial abnormality. Mild age-related change. The above report was generated using voice recognition software. It may contain grammatical, syntax or spelling errors. Electronically signed by: Thad Sheppard M.D. 11/17/2017 1:55 PM Dictated Date/Time: 11/17/2017 1:51 PM CHEST AND ABDOMEN 2 VIEWS HISTORY: NAUSEA. Fever. COMPARISON: Chest 01/12/2017. FINDINGS: The lungs are hyperexpanded with apical predominant emphysematous changes. No focal lung consolidations. The heart is normal in size. Left-sided dual-chamber pacemaker. No pleural effusions. No pneumothorax. L4-S1 posterior fusion. The bowel gas pattern is unremarkable. No dilated loops of bowel to suggest an obstruction. No renal or ureteral calculi identified. No pneumoperitoneum. No pneumatosis. IMPRESSION: No acute cardiopulmonary process. No evidence for bowel obstruction. Electronically signed by: Deni Leon M.D. 11/17/2017 2:46 PM Dictated Date/Time: 11/17/2017 2:43 PM Laboratory Results 11/17/17 13:22 Red Blood Count 4.59, Mean Corpuscular Volume 89.1, Mean Corpuscular Hemoglobin 33.1, Mean Corpuscular Hemoglobin Concent 37.2, Mean Platelet Volume 9.6, Neutrophils (%) (Auto) 69.3, Lymphocytes (%) (Auto) 25.8, Monocytes (%) (Auto) 4.3, Eosinophils (%) (Auto) 0.2, Basophils (%) (Auto) 0.2, Neutrophils # (Auto) 3.89, Lymphocytes # (Auto) 1.45, Monocytes # (Auto) 0.24, Eosinophils # (Auto) 0.01, Basophils # (Auto) 0.01 11/17/17 13:22 Test 11/17/17 13:15 11/17/17 13:22 11/17/17 13:25 11/17/17 14:20 Bedside Glucose 93 mg/dl (70-90) White Blood Count 5.61 K/uL (4.8-10.8) Red Blood Count 4.59 M/uL (4.2-5.4) Hemoglobin 15.2 g/dL (12.0-16.0) Hematocrit 40.9 % (37-47) Mean Corpuscular Volume 89.1 fL (80-100) Mean Corpuscular Hemoglobin 33.1 pg (25-34) Mean Corpuscular Hemoglobin Concent 37.2 g/dl (32-36) Platelet Count 215 K/uL (130-400) Mean Platelet Volume 9.6 fL (7.4-10.4) Neutrophils (%) (Auto) 69.3 % Lymphocytes (%) (Auto) 25.8 % Monocytes (%) (Auto) 4.3 % Eosinophils (%) (Auto) 0.2 % Basophils (%) (Auto) 0.2 % Neutrophils # (Auto) 3.89 K/uL (1.4-6.5) Lymphocytes # (Auto) 1.45 K/uL (1.2-3.4) Monocytes # (Auto) 0.24 K/uL (0.11-0.59) Eosinophils # (Auto) 0.01 K/uL (0-0.5) Basophils # (Auto) 0.01 K/uL (0-0.2) RDW Standard Deviation 39.4 fL (36.4-46.3) RDW Coefficient of Variation 12.3 % (11.5-14.5) Immature Granulocyte % (Auto) 0.2 % Immature Granulocyte # (Auto) 0.01 K/uL (0.00-0.02) Anion Gap 15.0 mmol/L (3-11) Estimated GFR () 50.2 Estimated GFR (Non- 43.3 BUN/Creatinine Ratio 16.5 (10-20) Calcium Level 9.5 mg/dl (8.5-10.1) Magnesium Level 1.9 mg/dl (1.8-2.4) Total Bilirubin 1.3 mg/dl (0.2-1) Direct Bilirubin 0.3 mg/dl (0-0.2) Aspartate Amino Transf (AST/SGOT) 19 U/L (15-37) Alanine Aminotransferase (ALT/SGPT) 18 U/L (12-78) Alkaline Phosphatase 50 U/L (45-117) Total Protein 7.4 gm/dl (6.4-8.2) Albumin 4.2 gm/dl (3.4-5.0) Lipase 295 U/L (73-393) Thyroid Stimulating Hormone (TSH) 0.759 uIu/ml (0.300-4.500) Bedside Troponin I < 0.030 ng/ml (0-0.045) Urine Color DK YELLOW Urine Appearance CLEAR (CLEAR) Urine pH 5.0 (4.5-7.5) Urine Specific [employer] [place] 1.026 (1.000-1.030) Urine Protein NEG (NEG) Urine Glucose (UA) NEG (NEG) Urine Ketones 3+ (NEG) Urine Occult Blood TRACE (NEG) Urine Nitrite NEG (NEG) Urine Bilirubin NEG (NEG) Urine Urobilinogen NEG (NEG) Urine Leukocyte Esterase MODERATE (NEG) Urine WBC (Auto) 10-30 /hpf (0-5) Urine RBC (Auto) 0-4 /hpf (0-4) Urine Hyaline Casts (Auto) 5-10 /lpf (0-5) Urine Epithelial Cells (Auto) >30 /lpf (0-5) Urine Bacteria (Auto) 1+ (NEG) Urine Yeast (Auto) BUDDING (NONE PRSENT) Laboratory results per my review. Medications Administered Medications (Trade) Dose Ordered Sig/Faraz Route Start Time Stop Time Status Last Admin Dose Admin Prochlorperazine Edisylate (Compazine Inj) 5 mg NOW STAT IV 11/17/17 13:03 11/17/17 13:08 DC 11/17/17 13:31 5 MG Diphenhydramine HCl (Benadryl Inj) 25 mg NOW STAT IV 11/17/17 13:03 11/17/17 13:08 DC 11/17/17 13:30 25 MG Sodium Chloride 250 ml @ 999 mls/hr Q16M STAT IV 11/17/17 13:03 11/17/17 13:18 DC 11/17/17 13:29 999 MLS/HR Methylprednisolone Sodium Succinate (Solu-Medrol IV) 60 mg NOW STAT IV 11/17/17 13:03 11/17/17 13:08 DC 11/17/17 13:29 60 MG Sodium Chloride 250 ml @ 999 mls/hr Q16M STAT IV 11/17/17 14:30 11/17/17 14:45 DC 11/17/17 15:10 999 MLS/HR Cephalexin Monohydrate (Keflex Cap) 500 mg NOW ONCE PO 11/17/17 15:00 11/17/17 15:01 DC 11/17/17 15:10 500 MG ECG Indication: other (headache) Rate (beats per minute): 89 Rhythm: normal sinus Findings: nonspecific-ST abn, no ectopy, other (Poor quality baseline for interpretation) ED Course 1301: Past medical records reviewed. The patient was evaluated in room B6. A complete history and physical examination was performed. 1303: Ordered Solu-Medrol 60 mg IV, Sodium Chloride 250 ml @ 999 mls/hr IV, Benadryl 25 mg IV, and Compazine 5 mg IV 1430: Ordered Sodium Chloride 250 ml @ 999 mls/hr IV 1458: I reassessed the patient at this time. She is feeling better and resting comfortably. I discussed the results and treatment plan with the patient. I answered all pertaining questions that she had. She expressed understanding and verbalized agreement. The patient will be discharged home. Medical Decision Differential Diagnoses: Intracranial hemorrhage, intracranial mass, migraine headache, tension headache , sinusitis, meningitis This patient was evaluated and appeared to be in no distress. IV access was obtained and laboratory work was drawn. Patient's EKG reveals no evidence of acute ischemia. Patient was hydrated with normal saline solution 250 mL 2 boluses. Patient was given IV Compazine 5 mg, IV Benadryl 25 mg and 60 mg of IV Solu-Medrol. Laboratory work reveals a mild dehydration. Urinalysis is questionable for infection, and is likely contaminated. I suspect the patient' s symptoms are coming from the intractable headache as well as dehydration secondarily. She will be placed on steroid taper 30 mg 3 days, 20 mg 2 days, 10 mg 2 days been off. She will be placed on Keflex 500 mg twice a day for 5 days for the potential UTI. Patient was encouraged to drink plenty of fluids and to follow-up with her PCP as soon as possible. She will return to the ER for worsening of symptoms or any medical concerns. Medication Reconcilliation Current Medication List: was personally reviewed by me Blood Pressure Screening Patient's blood pressure: Normal blood pressure Impression Primary Impression: Intractable headache Additional Impressions: UTI (urinary tract infection) Dehydration Scribe Attestation The scribe's documentation has been prepared under my direction and personally reviewed by me in its entirety. I confirm that the note above accurately reflects all work, treatment, procedures, and medical decision making performed by me. Departure Information Dispostion Home / Self-Care Prescriptions Prednisone (Prednisone) 10 Mg Tab 10 MG PO DIRECTED, #15 TAB Prov: Samira Molina M.D. 11/17/17 Cephalexin Monohydrate (Keflex) 500 Mg Cap 500 MG PO BID, #10 CAP Prov: Samira Molina M.D. 11/17/17 Referrals RV. Shelton MD (PCP) Forms HOME CARE DOCUMENTATION FORM, IMPORTANT VISIT INFORMATION, WORK / SCHOOL INSTRUCTIONS Patient Instructions My [facility] Additional Instructions Diagnosis: Intractable headache, UTI Keflex 500 mg twice daily for 5 days. Prednisone 30 mg for 3 days, 20 mg for 2 days, 10 mg for 2 days. Continue your migraine medications as needed and as prescribed by your physician. Drink plenty of clear fluids. Contact your primary care physician for follow-up within the next week. Return to the emergency department for worsening of symptoms or any medical concerns. Problem Qualifiers
[2017-11-17 13:38] LABS: BASO % 0.2 %; BASO ABS # 0.01 K/uL (0-0.2); EOS % 0.2 %; EOS ABS # 0.01 K/uL (0-0.5); HEMATOCRIT 40.9 % (37-47); HEMOGLOBIN 15.2 g/dL (12.0-16.0); IG# 0.01 K/uL (0.00-0.02); LYMPH % 25.8 %; LYMPH ABS # 1.45 K/uL (1.2-3.4); MEAN CELL VOLUME 89.1 fL (80-100); MEAN CORPUSCULAR HEMOGLOBIN 33.1 pg (25-34); MEAN CORPUSCULAR HGB CONC 37.2 g/dl (32-36); MEAN PLATELET VOLUME 9.6 fL (7.4-10.4); MONO % 4.3 %; MONO ABS # 0.24 K/uL (0.11-0.59); NEUT % 69.3 %; NEUT ABS # 3.89 K/uL (1.4-6.5); PLATELET COUNT 215 K/uL (130-400); RED CELL DISTRIBUTION WIDTH CV 12.3 % (11.5-14.5); RED CELL DISTRIBUTION WIDTH SD 39.4 fL (36.4-46.3); WHITE BLOOD COUNT 5.61 K/uL (4.8-10.8)
--- NOTE | 2017-11-17 13:56 | DIAGNOSTIC IMAGING REPORT ---
HEAD WITHOUT CONTRAST (CT) CT DOSE: 638.56 mGycm HISTORY: Mental status change HEADACHE, HTN TECHNIQUE: Multiaxial CT images of the head were performed without the use of intravenous contrast. A dose lowering technique was utilized adhering to the principles of ALARA. Comparison: 06/06/2016 Findings: The paranasal sinuses and mastoid air cells are clear. The calvarium and skull base are intact. The ventricles and sulci are within normal limits. There is no mass, hematoma, midline shift, or acute infarct. Mild chronic small vessel change of aging Impression: No acute intracranial abnormality. Mild age-related change. The above report was generated using voice recognition software. It may contain grammatical, syntax or spelling errors. Electronically signed by: Thad Sheppard M.D. 11/17/2017 1:55 PM Dictated Date/Time: 11/17/2017 1:51 PM
[2017-11-17] MEDS ORDERED: GABA-113 PO (14:04)
[2017-11-17] MEDS ORDERED: DULO60CA44 PO (14:04)
[2017-11-17 14:16] LABS: ALBUMIN 4.2 gm/dl (3.4-5.0); ALKALINE PHOSPHATASE 50 U/L (45-117); ALT/SGPT 18 U/L (12-78); BLOOD UREA NITROGEN 21 mg/dl (7-18); CALCIUM 9.5 mg/dl (8.5-10.1); CARBON DIOXIDE 20 mmol/L (21-32); CREATININE 1.27 mg/dl (0.60-1.20); GLUCOSE 91 mg/dl (70-99); LIPASE 295 U/L (73-393); POTASSIUM 3.9 mmol/L (3.5-5.1); SODIUM 136 mmol/L (136-145); TOTAL PROTEIN 7.4 gm/dl (6.4-8.2)
[2017-11-17 14:21] LABS: AST/SGOT 19 U/L (15-37)
--- NOTE | 2017-11-17 14:47 | DIAGNOSTIC IMAGING REPORT ---
CHEST AND ABDOMEN 2 VIEWS HISTORY: NAUSEA. Fever. COMPARISON: Chest 01/12/2017. FINDINGS: The lungs are hyperexpanded with apical predominant emphysematous changes. No focal lung consolidations. The heart is normal in size. Left-sided dual-chamber pacemaker. No pleural effusions. No pneumothorax. L4-S1 posterior fusion. The bowel gas pattern is unremarkable. No dilated loops of bowel to suggest an obstruction. No renal or ureteral calculi identified. No pneumoperitoneum. No pneumatosis. IMPRESSION: No acute cardiopulmonary process. No evidence for bowel obstruction. Electronically signed by: Deni Leon M.D. 11/17/2017 2:46 PM Dictated Date/Time: 11/17/2017 2:43 PM
[2017-11-17] MEDS ORDERED: CEPHALEXIN MONOHYDRATE 250 MG CAP PO ONE (15:00)
[2017-11-17] MEDS ORDERED: PRED10TA PO (15:04)
[2017-11-17] MEDS ORDERED: CEPH500C PO (15:04)
[2017-11-17 15:55] VITALS: BP 125/76; PULSE 75; O2SAT 98
== END 2017-11-17 15:55 | disposition home or self-care (01) ==
LOC: C.EDB 12:49
DX: G44.001 Cluster headache syndrome, unspecified, intractable (principal); N39.0 Urinary tract infection, site not specified; E86.0 Dehydration; I48.91 Unspecified atrial fibrillation; R00.0 Tachycardia, unspecified; I44.1 Atrioventricular block, second degree; Z95.0 Presence of cardiac pacemaker

== ENCOUNTER → 2018-06-01 | Outpatient (CLI) | payer OTHER ==
[~2018-06-01] MED LIST changes: -ALEN70TA2 PO; +DULO60CA44 PO; +GABA-113 PO; -LVQ750 PO; -METO25TA56 PO; -OMEG10007 PO; -PRD10 PO
[2018-06-01 12:35] LABS: ALBUMIN 3.8 gm/dl (3.4-5.0); ALKALINE PHOSPHATASE 56 U/L (45-117); ALT/SGPT 25 U/L (12-78); AST/SGOT 25 U/L (15-37); BLOOD UREA NITROGEN 18 mg/dl (7-18); CALCIUM 9.2 mg/dl (8.5-10.1); CARBON DIOXIDE 33 mmol/L (21-32); CHOLESTEROL 213 mg/dl (0-200); CREATININE 1.72 mg/dl (0.60-1.20); GLUCOSE 91 mg/dl (70-99); LDL CHOLESTEROL CALCULATED 118 mg/dl; POTASSIUM 4.6 mmol/L (3.5-5.1); SODIUM 138 mmol/L (136-145); TOTAL PROTEIN 6.9 gm/dl (6.4-8.2)
== END | disposition home or self-care (01) ==
LOC: C.LAB1850 10:17
PROVIDERS: ATTEND Internal Medicine
DX: I10 Essential (primary) hypertension (principal); E78.5 Hyperlipidemia, unspecified; E55.9 Vitamin D deficiency, unspecified; E53.8 Deficiency of other specified B group vitamins

== ENCOUNTER 2023-08-21 22:03 | Inpatient (IN) ==
[2023-08-21 22:39] LABS: Basophils # (auto) 0.01 K/uL (0.00-0.20); Basophils % (auto) 0.2 %; Eosinophils # (auto) 0.01 K/uL (0.00-0.50); Eosinophils % (auto) 0.2 %; Hematocrit (blood only) 35.8 % (37.0-47.0); Immature Granulocytes # (auto) 0.02 K/uL (0.01-0.20); Immature Granulocytes % (auto) 0.4 %; Lymphocytes # (auto) 0.82 K/uL (1.20-3.40); Lymphocytes % (auto) 14.8 %; Mean Corpuscular Hemoglobin 33.2 pg (25.0-34.0); Mean Corpuscular Hgb Conc 36.3 g/dL (32.0-36.0); Mean Corpuscular Volume 91.6 fL (80.0-100.0); Mean Platelet Volume 9.5 fL (9.4-12.4); Monocytes # (auto) 0.34 K/uL (0.11-0.59); Monocytes % (auto) 6.1 %; Neutrophils # (auto) 4.34 K/uL (1.40-6.50); Neutrophils % (auto) 78.3 %; Platelet Count 180 K/uL (130-400); RDW Standard Deviation 40.4 fL (36.4-46.3); Red Blood Count 3.91 M/uL (4.20-5.40); White Blood Count 5.54 K/ul (4.8-10.8)
[2023-08-21] MEDS ORDERED: ALBUT/IPRATROP 3MG/0.5MG NEB 3 ML VIAL NEB STA (22:44)
[2023-08-21 23:13] LABS: Partial Thromboplastin Ratio 0.9; Partial Thromboplastin Time 25.2 Seconds (21.0-31.0); Prothrombin Time 10.6 Seconds (9.0-12.0)
[2023-08-21] MEDS ORDERED: methylPREDNISolone 125 MG/2 ML VIAL IV STA (23:22)
[2023-08-21 23:36] LABS: Albumin Globulin Ratio 1.5 (0.9-2); Albumin Level 4.1 gm/dl (3.4-5.0); BUN Creatinine Ratio 14.5 (10-20); Bilirubin,Total 0.8 mg/dl (0.2-1.0); Calcium 9.4 mg/dl (8.6-10.3); Creatinine Clr Calc Pharmacy 38.1 ml/min; Est GFR (African American) 49.6 ml/min; Est GFR (Non-African American) 42.8 ml/min; Globulin 2.7 gm/dl (2.5-4.0); Potassium 4.2 mmol/L (3.5-5.1); Total Protein 6.8 gm/dl (6.0-8.3); Troponin I High Sensitivity 11.5 pg/ml (0-14)
--- NOTE | 2023-08-22 00:16 | Emergency Department Note ---
Impression & Plan Chest pain, SOB (shortness of breath), Chest congestion, Enterovirus infection ED Provider Note NAME: TO RED AGE: 73 SEX: Female INFORMANT: Patient, EMS, and ED PROVIDER(S): Chinmay Espinosa MD CHIEF COMPLAINT: Chest pain PLAN: Disposition: Admitted Outpatient prescription management: none Referral: None MEDICAL DECISION MAKING: Patient presented because of chest pain. She had a concerning prehospital course. She was doing somewhat better on arrival here. She was still having congestion and some difficulty breathing. Chest x-ray was unremarkable. Her CBC and chemistry panels were unremarkable as well. The patient had a negative cardiac troponin. ECG had normalized here compared to the prehospital lateral ST depressions. She was given a nebulizer and Solu-Medrol. Bio fire respiratory panel performed. Due to the chest pain and shortness of breath comp laints CT imaging of the chest was ordered. Patient's presented and added to the history as below. Patient had a negative BNP. Patient was found to have the presence of enterovirus/rhinovirus infection. Consultation was made with Dr. Emanuel Finley of the [facility] service. Patient was evaluated in the ER for further management. Care/management discussed with: Discussed with manufacturing maintenance manager Level of care consideration(s): After review of the information above and other included data, I feel the patient requires escalation of care to admission. Triage Nursing notes: reviewed and agree them. Vital Signs: reviewed and remarkable for hypertension Additional History obtained from: Winder Tender regarding her prehospital treatment Chronic Medical/Social Conditions affecting care: Hypertension Prior /Outside records reviewed: none Differential Diagnosis: Viral syndrome, reactive airway disease, cardiac ischemia, aortic dissection, pulmonary embolism, pneumothorax, pneumonia, pericarditis, myocarditis, esophageal rupture, GERD, cholecystitis, pancreatitis, musculoskeletal, as well as other pathologies. Diagnostics, independently interpreted by me: ECG: Twelve-lead ECG reveals normal sinus rhythm at [address] elevation or depression. No PACs or PVCs. When compared to prehospital ECG the lateral ST depression is resolved. Cardiac Monitoring: Cardiac monitoring ordered by me: The patient was placed on continuous cardiac monitoring and observed. It revealed a normal sinus rhythm at 94 beats per minute without ectopy or evidence of dysrhythmia. Medical decision rules: none Imaging studies: Chest x-ray. Findings: A chest x-ray was performed and revealed no pneumothorax, effusion, infiltrate, pulmonary edema, free air under the diaphragm, or wide mediastinum. Impression: No acute disease. HPI: 73 year old Female arrives for evaluation of chest pain. Patient had 3 days worth of shortness of breath and chest congestion. She is also had some chest pain that seems to be worse with coughing and describes it as a heaviness. Patient was having increased work of breathing this evening and EMS was summoned. She was visibly short of breath on their arrival. She was tripoding. O2 saturations on EMS arrival was 86%. Patient was complaining of chest heaviness. Prehospital ECG had some lateral ST depressions. She was given 4 mg of Zofran due to some nausea. Patient was also complaining weakness. She was also given aspirin and 2 sublingual nitroglycerin. Patient was also transition to a nonrebreather and high flow oxygen. EMS was able to titrate her down to 4 L nasal cannula oxygen and maintaining adequate saturations. Her chest pain resolved. She still had chest congestion and shortness of breath. No fevers reported. No sick contacts. is present and helps with the history. He notes the patient is not been eating or drinking well over the last several days. Pt denies LOC, headache, fevers, chills, diaphoresis, visual changes, neck pain vomiting, abdominal pain, back pain, melena, hematochezia, urinary symptoms, numbness, lymphadenopathy, rash, or other complaints. PAST MEDICAL HISTORY: See Below, hypertension, migraine, CKD PAST SURGICAL HISTORY: See Below, pacemaker SOCIAL HISTORY: See Below, HOME MEDICATIONS: See Below ALLERGIES: See Below VITALS: See Below PHYSICAL EXAMINATION: GENERAL: Awake, alert, mildly ill-appearing, in mild distress HENT: Normocephalic, atraumatic. Oropharynx unremarkable. EYES: Normal conjunctiva. Sclera non-icteric. NECK: Inspection normal. Non-tender. Supple. No nuchal rigidity. FROM. No masses. RESPIRATORY: Coarse breath sounds bilaterally. There was congestion and rhonchi noted. Increased rate and respiratory effort. CARDIAC: Borderline tachycardic rate. Normal rhythm. No murmurs. No rubs. Extremities warm and well perfused. Pulses equal. No JVD. GI: Soft, non-distended. No tenderness to palpation. No rebound or guarding. No masses. RECTAL: Deferred. MUSCULOSKELETAL: Atraumatic. Chest examination reveals no tenderness. The back is symmetrical on inspection without obvious abnormality. There is no CVA tenderness to palpation. No joint edema. LOWER EXTREMITIES: Calves are equal size bilaterally and non-tender. No edema. Chronic venous discoloration. NEURO: Normal sensorium. No sensory or motor deficits noted. SKIN: No rash or jaundice noted. PROCEDURES: none CRITICAL CARE: none OBSERVATION NOTE: none Past Med/Surg History Medical History (Updated 08/22/23 @ 01:08 by Chinmay Espinosa MD) Atrial fibrillation Balance problem Cerebrovascular disease Gait disturbance Hyperlipidemia Hypertension Hypoxia Insomnia Low back pain Migraine Osteoporosis Pacemaker at end of battery life Parkinsonism Peripheral neuropathy Polyneuropathy Presence of cardiac pacemaker Right sided abdominal pain SSS (sick sinus syndrome) Stage III chronic kidney disease Vitamin B12 deficiency Vitamin D deficiency Surgical History History of back surgery S/P cardiac pacemaker procedure Family History Mother Hypertension Father Hypertension Family/Other Heart disease Denies family history of Colon cancer Ovarian cancer Prostate cancer Chronic kidney disease Myocardial infarction Breast cancer Social History Smoking Status: Never smoker Hx Alcohol Use: No Hx Substance Use: No Preferred Language: French Communication Ability: Effective Visual Impairment: No Limitations Hearing Ability: Normal Laborer [place] Required: No Beliefs That Will Affect Care: None marital status: Current Living Situation: Spouse current occupational status: retired Feels Safe at Home: Yes Childhood Exposure to Second-Hand Smoke: Yes Dental Care, Regularly: No Physical Activity Frequency: Does not Exercise Seatbelt Use: always Sunscreen Use: No Assistive Devices: Denture - Upper, Denture - Lower and Glasses Allergies Allergies Allergy/AdvReac Type Severity Reaction Status Date / Time Penicillins Allergy Intermediate HIVES Verified 08/22/23 00:04 codeine Allergy Unknown BLOOD Verified 08/22/23 00:04 PRESSURE DROPS morphine Allergy Unknown HYPOTENSION Verified 08/22/23 00:04 Home Meds Home Medications Medication Instructions Recorded Confirmed multivitamin (Daily Multi-Vitamin 1 tab PO DAILY 06/05/20 08/22/23 tablet) atorvastatin 10 mg tablet 10 mg PO 3XWK 08/22/23 08/22/23 gabapentin 800 mg tablet 800 mg PO TID 08/22/23 08/22/23 metoprolol succinate 100 mg 150 mg PO DAILY 08/22/23 08/22/23 tablet,extended release 24 hr tramadol 50 mg tablet 50 mg PO BID 08/22/23 08/22/23 Previous Rx's Medication Instructions Recorded omeprazole 20 mg capsule,delayed 20 mg PO DAILY #90 caps 09/17/22 release duloxetine 60 mg capsule,delayed 60 mg PO DAILY 90 days #90 caps 12/09/22 release sumatriptan succinate 50 mg tablet See Rx Instructions PO .COMPLEX 12/19/22 #16 tabs trimethoprim 100 mg tablet 100 mg PO QPM #90 tabs 03/19/23 Results & Data (ED) Vital Signs Vital Signs - 24 hr 08/21/23 21:56 08/21/23 22:23 08/21/23 22:23 Temperature 36.3 C L Temperature Source Oral Pulse Rate 96 H Pulse Rate [Finger] Respiratory Rate 24 Respiratory Effort / Characteristics Short of Breath Respiratory Pattern Blood Pressure 152/100 H Blood Pressure [Right Arm] Blood Pressure Mean 117 Blood Pressure Mean [Right Arm] Blood Pressure Position [Right Arm] Pulse Oximetry 98 Oxygen Delivery Method Nasal Cannula Nasal Cannula Nasal Cannula Oxygen Flow Rate 4 4 4 Sepsis Recent Fever Within 48 Hours No Sepsis New/Unexplained Change in Mental Status No Sepsis Action Taken by Nursing No Action Required 08/21/23 22:23 08/21/23 22:23 08/21/23 22:25 Temperature 36.8 C Temperature Source Oral Pulse Rate 94 H Pulse Rate [Finger] Respiratory Rate 23 Respiratory Effort / Characteristics Spontaneous Respiratory Pattern Regular Blood Pressure Blood Pressure [Right Arm] 152/100 H Blood Pressure Mean Blood Pressure Mean [Right Arm] 117 Blood Pressure Position [Right Arm] Semi-fowlers Pulse Oximetry 95 95 Oxygen Delivery Method Nasal Cannula Nasal Cannula Oxygen Flow Rate 4 4 Sepsis Recent Fever Within 48 Hours Sepsis New/Unexplained Change in Mental Status Sepsis Action Taken by Nursing 08/22/23 00:30 Temperature Temperature Source Pulse Rate Pulse Rate [Finger] 96 H Respiratory Rate 18 Respiratory Effort / Characteristics Respiratory Pattern Blood Pressure Blood Pressure [Right Arm] 162/85 H Blood Pressure Mean Blood Pressure Mean [Right Arm] 110 Blood Pressure Position [Right Arm] Pulse Oximetry 95 Oxygen Delivery Method Room Air Oxygen Flow Rate Sepsis Recent Fever Within 48 Hours Sepsis New/Unexplained Change in Mental Status Sepsis Action Taken by Nursing Laboratory Data 08/21/23 22:20 08/21/23 22:20 Lab Results 08/21/23 08/21/23 08/21/23 Range/Units 22:20 22:20 22:20 WBC 5.54 (4.8-10.8) K/ul RBC 3.91 L (4.20-5.40) M/uL Hgb 13.0 (12.0-16.0) g/dl Hct 35.8 L (37.0-47.0) % MCV 91.6 (80.0-100.0) fL MCH 33.2 (25.0-34.0) pg MCHC 36.3 H (32.0-36.0) g/dL RDW Std Deviation 40.4 (36.4-46.3) fL RDW Coeff of Saskia 12.0 (11.5-14.5) % Plt Count 180 (130-400) K/uL MPV 9.5 (9.4-12.4) fL Immature Gran % (Auto) 0.4 % Neut % (Auto) 78.3 % Lymph % (Auto) 14.8 % Brown % (Auto) 6.1 % Eos % (Auto) 0.2 % Baso % (Auto) 0.2 % Neut # (Auto) 4.34 (1.40-6.50) K/uL Lymph # (Auto) 0.82 L (1.20-3.40) K/uL Brown # (Auto) 0.34 (0.11-0.59) K/uL Eos # (Auto) 0.01 (0.00-0.50) K/uL Baso # (Auto) 0.01 (0.00-0.20) K/uL Immature Gran # (Auto) 0.02 (0.01-0.20) K/uL PT 10.6 (9.0-12.0) Seconds INR 1.0 (0.9-1.1) APTT 25.2 (21.0-31.0) Seconds PTT Ratio 0.9 Sodium 136 (136-145) mmol/L Potassium 4.2 (3.5-5.1) mmol/L Chloride 100 (98-107) mmol/L Carbon Dioxide 22 (21-32) mmol/L Anion Gap 14 H (3-11) BUN 18 (6-23) mg/dl Creatinine 1.24 H (0.6-1.2) mg/dl Est Cr Clr Drug Dosing 38.1 ml/min Est GFR ( Amer) 49.6 ml/min Est GFR (Non-Af Amer) 42.8 ml/min BUN/Creatinine Ratio 14.5 (10-20) Glucose 99 (70-99(Fasting)) mg/dl Calcium 9.4 (8.6-10.3) mg/dl Total Bilirubin 0.8 (0.2-1.0) mg/dl AST 25 (13-39) U/L ALT 14 (7-52) U/L Alkaline Phosphatase 60 (34-104) U/L Troponin I High Sens 11.5 (0-14) pg/ml B-Natriuretic Peptide (0-100) pg/ml Total Protein 6.8 (6.0-8.3) gm/dl Albumin 4.1 (3.4-5.0) gm/dl Globulin 2.7 (2.5-4.0) gm/dl Albumin/Globulin Ratio 1.5 (0.9-2) Lipase 31 (11-82) U/L Adenovirus (PCR) (NotDetected) B. pertussis DNA (PCR) (NotDetected) B.parapertussis DNA PCR (NotDetected) C. pneumoniae DNA (PCR) (NotDetected) Coronavirus OC43 (PCR) (NotDetected) Coronavirus HKU1 (PCR) (NotDetected) Coronavirus 229E (PCR) (NotDetected) SARS-CoV-2 (PCR) (NotDetected) Coronavirus NL63 (PCR) (NotDetected) Human Metapneumovir PCR (NotDetected) Influenza Type A (PCR) (NotDetected) Influenza Type B (PCR) (NotDetected) M. pneumoniae (PCR) (NotDetected) Parainfluenza 1 (PCR) (NotDetected) Parainfluenza 2 (PCR) (NotDetected) Parainfluenza 3 (PCR) (NotDetected) Parainfluenza 4 (PCR) (NotDetected) RSV (PCR) (NotDetected) Entero/Rhino (PCR) (NotDetected) 08/21/23 08/21/23 Range/Units 22:20 22:20 WBC (4.8-10.8) K/ul RBC (4.20-5.40) M/uL Hgb (12.0-16.0) g/dl Hct (37.0-47.0) % MCV (80.0-100.0) fL MCH (25.0-34.0) pg MCHC (32.0-36.0) g/dL RDW Std Deviation (36.4-46.3) fL RDW Coeff of Saskia (11.5-14.5) % Plt Count (130-400) K/uL MPV (9.4-12.4) fL Immature Gran % (Auto) % Neut % (Auto) % Lymph % (Auto) % Brown % (Auto) % Eos % (Auto) % Baso % (Auto) % Neut # (Auto) (1.40-6.50) K/uL Lymph # (Auto) (1.20-3.40) K/uL Brown # (Auto) (0.11-0.59) K/uL Eos # (Auto) (0.00-0.50) K/uL Baso # (Auto) (0.00-0.20) K/uL Immature Gran # (Auto) (0.01-0.20) K/uL PT (9.0-12.0) Seconds INR (0.9-1.1) APTT (21.0-31.0) Seconds PTT Ratio Sodium (136-145) mmol/L Potassium (3.5-5.1) mmol/L Chloride (98-107) mmol/L Carbon Dioxide (21-32) mmol/L Anion Gap (3-11) BUN (6-23) mg/dl Creatinine (0.6-1.2) mg/dl Est Cr Clr Drug Dosing ml/min Est GFR ( Amer) ml/min Est GFR (Non-Af Amer) ml/min BUN/Creatinine Ratio (10-20) Glucose (70-99(Fasting)) mg/dl Calcium (8.6-10.3) mg/dl Total Bilirubin (0.2-1.0) mg/dl AST (13-39) U/L ALT (7-52) U/L Alkaline Phosphatase (34-104) U/L Troponin I High Sens (0-14) pg/ml B-Natriuretic Peptide 40 (0-100) pg/ml Total Protein (6.0-8.3) gm/dl Albumin (3.4-5.0) gm/dl Globulin (2.5-4.0) gm/dl Albumin/Globulin Ratio (0.9-2) Lipase (11-82) U/L Adenovirus (PCR) Not Detected (NotDetected) B. pertussis DNA (PCR) Not Detected (NotDetected) B.parapertussis DNA PCR Not Detected (NotDetected) C. pneumoniae DNA (PCR) Not Detected (NotDetected) Coronavirus OC43 (PCR) Not Detected (NotDetected) Coronavirus HKU1 (PCR) Not Detected (NotDetected) Coronavirus 229E (PCR) Not Detected (NotDetected) SARS-CoV-2 (PCR) Not Detected (NotDetected) Coronavirus NL63 (PCR) Not Detected (NotDetected) Human Metapneumovir PCR Not Detected (NotDetected) Influenza Type A (PCR) Not Detected (NotDetected) Influenza Type B (PCR) Not Detected (NotDetected) M. pneumoniae (PCR) Not Detected (NotDetected) Parainfluenza 1 (PCR) Not Detected (NotDetected) Parainfluenza 2 (PCR) Not Detected (NotDetected) Parainfluenza 3 (PCR) Not Detected (NotDetected) Parainfluenza 4 (PCR) Not Detected (NotDetected) RSV (PCR) Not Detected (NotDetected) Entero/Rhino (PCR) DETECTED A* (NotDetected) Administered Medications Discontinued Medications Albuterol (Albut/Ipratrop 3mg/0.5mg Neb 3 Ml Vial) 3 ml NEB NOW STA; Protocol Stop: 08/21/23 22:45 Last Admin: 08/21/23 22:50 Dose: 3 ml Documented By: FACUNDO Methylprednisolone (Methylprednisolone 125 Mg/2 Ml Vial) 125 mg IV NOW STA Stop: 08/21/23 23:23 Last Admin: 08/21/23 23:34 Dose: 125 mg Documented By: JIM Discharge Plan Visit Data Chief Complaint: Chest Pain ED Provider: Chinmay Espinosa Discharge Problem: Chest pain, SOB (shortness of breath), Chest congestion, Enterovirus infection Forms Stand Alone Forms: [facility] Prescriptions Prescriptions: No Action omeprazole 20 mg capsule,delayed release(DR/EC) 20 mg PO DAILY Qty: 90 3RF duloxetine 60 mg capsule,delayed release(DR/EC) 60 mg PO DAILY 90 Days Qty: 90 1RF sumatriptan succinate 50 mg tablet See Rx Instructions PO .COMPLEX Qty: 16 5RF Dose Instruction: take 1 tab at onset of headache; if no relief may repeat 1 tab in 2hr; max = 4 tabs/day (24hr) PO Rx Instructions: take 1 tab at onset of headache; if no relief may repeat 1 tab in 2hr; max = 4 tabs/day (24hr) PO trimethoprim 100 mg tablet 100 mg PO QPM Qty: 90 3RF multivitamin [Daily Multi-Vitamin] Tablet 1 tab PO DAILY atorvastatin 10 mg tablet 10 mg PO 3XWK Rx Instructions: 10 mg orally Friday/Friday/Friday; metoprolol succinate 100 mg tablet extended release 24 hr 150 mg PO DAILY Rx Instructions: Take 1 and 1/2 tablets by mouth every day tramadol 50 mg tablet 50 mg PO BID gabapentin 800 mg tablet 800 mg PO TID Rx Instructions: TAKE 1 TABLET BY MOUTH THREE TIMES A DAY Referrals Referrals: Shanel Mendiola MD [Primary Care Provider] -
[2023-08-22 00:59] LABS: Adenovirus PCR Not Detected (NotDetected); Bordetella parapertussis PCR Not Detected (NotDetected); Bordetella pertussis PCR Not Detected (NotDetected); Chlamydia pneumoniae PCR Not Detected (NotDetected); Coronavirus 229E PCR Not Detected (NotDetected); Coronavirus CoV-2 (COVID19)PCR Not Detected (NotDetected); Coronavirus HKU1 PCR Not Detected (NotDetected); Coronavirus NL63 PCR Not Detected (NotDetected); Coronavirus OC43PCR Not Detected (NotDetected); Human Metapneumovirus PCR Not Detected (NotDetected); Influenza A PCR Not Detected (NotDetected); Influenza B PCR Not Detected (NotDetected); Mycoplasma pneumoniae PCR Not Detected (NotDetected); Parainfluenza Virus 1 PCR Not Detected (NotDetected); Parainfluenza Virus 2 PCR Not Detected (NotDetected); Parainfluenza Virus 3 PCR Not Detected (NotDetected); Parainfluenza Virus 4 PCR Not Detected (NotDetected); Respiratory Syncytial VirusPCR Not Detected (NotDetected)
[2023-08-22 01:04] LABS: Rhinovirus/Enterovirus PCR DETECTED (NotDetected)
[2023-08-22] MEDS ORDERED: BENZONATATE 100 MG CAPSULE PO ONE (01:50)
--- NOTE | 2023-08-22 01:53 | History & Physical Report ---
Date of Service August 22, 2023 Assessment & Plan (1) Enterovirus infection: Plan: 73yo Female with PMH bradycardia s/p pacer, HLD, HTN, migraine, insomnia CKD3 here for concern cough. Entero/rhinovirus with hypoxia -likely cause of ongoing cough -on 4L O2 -CT chest: per my read no PE, no fluid or consolidations -In ED received methylprednisolone and albuterol -admit to med/tele -continue methylprednisolone 40mg IV q8h -ordered PRN duoneb -ordered tessalon perrls, mucinex HLD -continue atorvastatin Chronic Pain -continue gabapentin, duloxetine -continue tramadol GERD -continue protonix HTN -continue metoprolol Hx UTI -hold trimethoprim FENa: regular Code Status: Full DVT PPX: SCDs PT/OT: ordered Dispo: med/tele Marci King D.O. PGY 3, FCM (2) SOB (shortness of breath): (3) Chest pain: (4) Hyperlipidemia: (5) Hypertension: (6) Migraine: (7) Insomnia: (8) Stage III chronic kidney disease: History of Present Illness Chief Complaint: Cough Primary Care Provider: Shanel Mendiola MD 73yo Female with PMH bradycardia s/p pacer, HLD, HTN, migraine, insomnia CKD3 here for concern cough. Patient states her cough started 4 days ago, she had difficulty keeping food down the past 4 days due to cough. States she had a fever on day 2 that resolved. Has some chest pain that she attributes to cough. Had nausea on ambulance that resolved with medication. Otherwise denies abd pain diarrhea constipation. Patient states her coughing was worse today so came to ED. In ED she received methylprednisolone and albuterol. Currently satting 99% on 4L O2, denies SOB at this time. Patient understands she has a cold. She has a living will. POA is . Allergies Allergy/AdvReac Type Severity Reaction Status Date / Time Penicillins Allergy Intermediate HIVES Verified 08/22/23 00:04 codeine Allergy Unknown BLOOD Verified 08/22/23 00:04 PRESSURE DROPS morphine Allergy Unknown HYPOTENSION Verified 08/22/23 00:04 Home Medications Medication Instructions Recorded Confirmed Type multivitamin (Daily Multi-Vitamin 1 tab PO DAILY 06/05/20 08/22/23 History tablet) omeprazole 20 mg capsule,delayed 20 mg PO DAILY #90 caps 09/17/22 08/22/23 Rx release duloxetine 60 mg capsule,delayed 60 mg PO DAILY 90 days #90 caps 12/09/22 08/22/23 Rx release sumatriptan succinate 50 mg tablet See Rx Instructions PO .COMPLEX 12/19/22 08/22/23 Rx #16 tabs trimethoprim 100 mg tablet 100 mg PO QPM #90 tabs 03/19/23 08/22/23 Rx atorvastatin 10 mg tablet 10 mg PO 3XWK 08/22/23 08/22/23 History gabapentin 800 mg tablet 800 mg PO TID 08/22/23 08/22/23 History metoprolol succinate 100 mg 150 mg PO DAILY 08/22/23 08/22/23 History tablet,extended release 24 hr tramadol 50 mg tablet 50 mg PO BID 08/22/23 08/22/23 History Past Med/Surg History Medical History (Updated 08/22/23 @ 01:08 by Chinmay Espinosa MD) Atrial fibrillation Balance problem Cerebrovascular disease Gait disturbance Hyperlipidemia Hypertension Hypoxia Insomnia Low back pain Migraine Osteoporosis Pacemaker at end of battery life Parkinsonism Peripheral neuropathy Polyneuropathy Presence of cardiac pacemaker Right sided abdominal pain SSS (sick sinus syndrome) Stage III chronic kidney disease Vitamin B12 deficiency Vitamin D deficiency Surgical History History of back surgery S/P cardiac pacemaker procedure Family History Mother Hypertension Father Hypertension Family/Other Heart disease Denies family history of Colon cancer Ovarian cancer Prostate cancer Chronic kidney disease Myocardial infarction Breast cancer Social History Smoking Status: Former smoker Hx Alcohol Use: No Hx Substance Use: No Preferred Language: Egyptian Communication Ability: Effective Visual Impairment: No Limitations Hearing Ability: Normal Pattern Weaver Required: No Beliefs That Will Affect Care: None marital status: Current Living Situation: Spouse current occupational status: retired Feels Safe at Home: Yes Childhood Exposure to Second-Hand Smoke: Yes Dental Care, Regularly: No Physical Activity Frequency: Does not Exercise Seatbelt Use: always Sunscreen Use: No Assistive Devices: Cane Physical Exam Constitutional: well developed, well nourished, cooperative and comfortable Eyes: PERRL, conjunctivae normal, anicteric sclerae ENMT: external ear and nose normal, oropharynx normal Neck: trachea midline, no thyromegaly Respiratory: normal respiratory effort, lungs clear to auscultation Cardiovascular: Rate/Rhythm: regular rate and regular rhythm Extremities: no edema Gastrointestinal (Abdomen): Inspection/Auscultation: abdomen normal to inspection Percussion/Palpation: abdomen soft; abdomen nontender Musculoskeletal: pain on palpation to b/l LE 2/2 neuropathy Skin: no rashes, warm and dry Results & Data Results & Data Vital Signs (Past 12 Hours) Vital Signs Temp Pulse Pulse Resp BP BP Pulse Ox 08/22/23 00:30 96 H 18 162/85 H 95 08/21/23 22:25 94 H 08/21/23 22:23 95 08/21/23 22:23 36.8 C 23 152/100 H 95 08/21/23 22:23 08/21/23 22:23 08/21/23 21:56 36.3 C L 96 H 24 152/100 H 98 O2 Del Method O2 Flow Rate 08/22/23 00:30 Room Air 08/21/23 22:25 08/21/23 22:23 Nasal Cannula 4 08/21/23 22:23 Nasal Cannula 4 08/21/23 22:23 Nasal Cannula 4 08/21/23 22:23 Nasal Cannula 4 08/21/23 21:56 Nasal Cannula 4 Supervising Physician Co-Signing Physician Notes Attending addendum: I have physically seen this patient, have supervised the medical residents activities, and agree with the H&P unless as otherwise noted. Assessment and Plan: Enterovirus/rhinovirus infection- Symptoms of cough and chest congestion with shortness of breath Developed need for 4 L oxygen while in the ED Admit to med telemetry Received methylprednisolone 125 mg IV in the ED. Did require dosing of dexamethasone 10 mg IV x1 in addition to Methylprednisolone 40 mg IV every 8 hours Duonebs every 4 hours while awake and every 2 hours when necessary. Tessalon Perles 100 mg p.o. 3 times daily as needed Guaifenesin extended release 600mg p.o. twice daily Chronic pain syndrome- Continue gabapentin, duloxetine and tramadol Resident Activity Tracking Resident Involvement: Resident Care Provided Care Provided: Adult [facility] Medicine (5) Hypertension Hypertension type: primary hypertension Qualified Code(s): I10 - Essential (primary) hypertension
[2023-08-22] MEDS ORDERED: BENZONATATE 100 MG CAPSULE PO PRN (01:59)
[2023-08-22] MEDS ORDERED: ALBUTEROL 0.083% NEBU SOLN 3 ML VIAL NEB PRN (01:59)
[2023-08-22] MEDS ORDERED: OPTIRAY 320 500ml IV ONE (02:16)
[2023-08-22] MEDS ORDERED: ALBUT/IPRATROP 3MG/0.5MG NEB 3 ML VIAL NEB PRN (02:41)
[2023-08-22] MEDS ORDERED: DEXAMETHASONE SOD INJ 4 MG/ML VIAL IV STA (02:43)
[2023-08-22] MEDS ORDERED: POLYETHYLENE (MIRALAX) 17 GM PACK PO PRN (03:22)
[2023-08-22] MEDS: ALBUT/IPRATROP 3MG/0.5MG NEB 3 ML VIAL NEB SCH ×6 (03:42→22:57)
[2023-08-22] MEDS ORDERED: ACETAMINOPHEN 1,000 MG/100 ML VIAL IV PRN (04:55)
--- NOTE | 2023-08-22 06:38 | XRay Report ---
XR chest 1V portable HISTORY: 73 years-old Female Chest pain, nonspecific COMPARISON: CTA chest of same day TECHNIQUE: AP view of the chest FINDINGS: Cardiomediastinal and hilar silhouettes are within normal limits. Left subclavian dual-lead pacer. No pneumothorax, pleural effusion, airspace consolidation or pulmonary edema. Bones appear grossly inta ct. IMPRESSION: No acute process. ACT 112: Negative or not required by law. The above report was generated using voice recognition software. It may contain grammatical, syntax o r spelling errors. Electronically signed by: Braxton Roper M.D. 08/22/2023 6:37 AM
[2023-08-22 06:51] LABS: Hematocrit (blood only) 38.3 % (37.0-47.0); Hemoglobin 13.7 g/dl (12.0-16.0); Mean Corpuscular Hemoglobin 32.6 pg (25.0-34.0); Mean Corpuscular Hgb Conc 35.8 g/dL (32.0-36.0); Mean Corpuscular Volume 91.2 fL (80.0-100.0); Mean Platelet Volume 9.4 fL (9.4-12.4); Platelet Count 191 K/uL (130-400); RDW Coefficient of Variation 11.9 % (11.5-14.5); RDW Standard Deviation 39.7 fL (36.4-46.3); White Blood Count 5.06 K/ul (4.8-10.8)
[2023-08-22 07:17] LABS: BUN Creatinine Ratio 14.3 (10-20); Calcium 9.9 mg/dl (8.6-10.3); Creatinine Clr Calc Pharmacy 37.5 ml/min; Est GFR (African American) 48.6 ml/min; Est GFR (Non-African American) 41.9 ml/min
--- NOTE | 2023-08-22 07:27 | CT Scan Report ---
Exam(s): CTA CHEST EXAM: CT Angiography Chest With Intravenous Contrast CLINICAL HISTORY: Reason for exam: SOB, hypoxia. TECHNIQUE: Axial computed tomographic angiography images of the chest with intravenous contrast. CTDI is 14.14 mGy and DLP is 442.35 mGy-cm. Automated exposure control was utilized for the study. A dose lowering technique was utilized adhering to the principles of ALARA. MIP reconstructed images were created and reviewed. COMPARISON: CTA Chest Pulmonary Embolism dated january 12 2017 FINDINGS: Pulmonary arteries: Motion artifact mildly limits evaluation. Despite this, no evidence of pulmonary embolism within the pulmonary outflow tract or immediate proximal branches. Aorta: No acute findings. No thoracic aortic aneurysm. Lungs: Minimal scattered areas of tree-in-bud nodularity in the lungs which likely relate to chronic infection. No mass. Pleural space: Unremarkable. No significant effusion. No pneumothorax. Heart: Unremarkable. No cardiomegaly. No significant pericardial effusion. No evidence of RV dysfunction. Mediastinum: Small esophageal hiatal hernia. Bones/joints: Degenerative changes in the spine. Chronic T12 compression fracture. No dislocation. Soft tissues: Unremarkable. Lymph nodes: Unremarkable. No enlarged lymph nodes. Tubes, lines and devices: Left subclavian central venous catheter tip in the approach pacemaker with leads superior vena cava. IMPRESSION: 1. Motion artifact mildly limits evaluation. Despite this, no evidence of pulmonary embolism within the pulmonary outflow tract or immediate proximal branches. 2. Minimal scattered areas of tree-in-bud nodularity in the lungs which likely relate to chronic infection. 3. No other acute findings. 4. Incidental findings as described. Electronically signed by: Jaspreet Yanes MD 08/22/23 07:26 AM
[2023-08-22] MEDS ORDERED: methylPREDNISolone 40 MG in SYRINGE 0 ML IV SCH (08:00)
--- NOTE | 2023-08-22 08:34 | Hospitalist Progress Note ---
Date of Service August 22, 2023 Assessment & Plan (1) Enterovirus infection: Plan: 73yo Female with PMH Sick sinus syndrome s/p pacer, HLD, HTN, migraine, insomnia CKD3 Entero/rhinovirus with hypoxia, did receive 1 dose of dexamethasone in the emergency department. We will continue p.o. prednisone at this time 40 mg -likely cause of ongoing cough -on 4L O2 -CT chest: no PE,tree in bud possible chronic bronchitis -In ED received methylprednisolone and albuterol-continue methylprednisolone 40mg IV q8h -ordered PRN duoneb -ordered tessalon perrls, mucinex HLD -continue atorvastatin Chronic Pain -continue gabapentin, duloxetine -continue tramadol GERD -continue protonix HTN -continue metoprolol Hx UTI -hold trimethoprim Code Status: Full DVT PPX: SCDs PT/OT: ordered (2) SOB (shortness of breath): (3) Chest pain: (4) Hyperlipidemia: (5) Hypertension: (6) Migraine: (7) Insomnia: (8) Stage III chronic kidney disease: Admission and Anticipated Discharge Date Admission Date: August 22, 2023 Subjective Patient seen in the presence of her . She relates having significant secondhand smoke over her lifetime from her . Her also was recently ill. Patient still is slightly short of breath still has a nonproductive cough Results & Data Results & Data Vital Signs (Past 12 Hours) Vital Signs Temp Pulse Pulse Resp BP BP Pulse Ox 08/22/23 07:47 118 H 08/22/23 07:21 08/22/23 07:19 101 H 18 171/90 H 99 08/22/23 07:14 104 H 20 97 08/22/23 03:33 110 H 22 157/96 H 93 08/22/23 02:24 113 H 08/22/23 00:30 96 H 18 162/85 H 95 08/21/23 22:25 94 H 08/21/23 22:23 95 08/21/23 22:23 98.2 F 23 152/100 H 95 08/21/23 22:23 08/21/23 22:23 08/21/23 21:56 97.3 F L 96 H 24 152/100 H 98 Pulse Ox O2 Del Method O2 Del Method O2 Flow Rate O2 Flow Rate 08/22/23 07:47 08/22/23 07:21 99 Nasal Cannula 4 10/13/23 07:19 Nasal Cannula 4 08/22/23 07:14 Nasal Cannula 4 08/22/23 03:33 Nasal Cannula 4 08/22/23 02:24 08/22/23 00:30 Room Air 08/21/23 22:25 08/21/23 22:23 Nasal Cannula 4 08/21/23 22:23 Nasal Cannula 4 08/21/23 22:23 Nasal Cannula 4 08/21/23 22:23 Nasal Cannula 4 08/21/23 21:56 Nasal Cannula 4 Laboratory Results Reviewed CBC reviewed chemistry PG Care Time/CCT Total # of Minutes Spent Total Time Spent with Patient: Total time spent is greater than 50% in coordination of care (as documented) at patient's floor/unit and/or counseling patient: Coding Level of Care Code 36144 SUB INP/OBS CARE 3/50MIN Diagnoses Enterovirus infection B34.1 SOB (shortness of breath) R06.02 Chest pain R07.9 Hyperlipidemia E78.5 Hypertension I10 Hypertension type: primary hypertension Migraine G43.909 Insomnia G47.00 Stage III chronic kidney disease N18.3 (5) Hypertension Hypertension type: primary hypertension Qualified Code(s): I10 - Essential (primary) hypertension
[2023-08-22] MEDS ORDERED: guaiFENesin 600 MG TABCR PO SCH (09:00)
[2023-08-22] MEDS ORDERED: ATORVASTATIN 10 MG TAB PO SCH (09:00)
[2023-08-22] MEDS: traMADol HCL 50 MG TABLET PO SCH ×2 (09:51→19:57)
[2023-08-22] MEDS: METOPROLOL SUCC 50MG EXT REL TAB PO SCH (09:52)
[2023-08-22] MEDS: PANTOprazole 40 MG TAB PO SCH (09:52)
[2023-08-22] MEDS: DULoxetine HCL 60 MG CAP PO SCH (09:53)
[2023-08-22] MEDS: GABAPENTIN 800 MG TAB PO SCH ×3 (09:53→19:57)
[2023-08-22] MEDS: methylPREDNISolone 40 MG in SYRINGE 0 ML IV SCH (14:01)
[2023-08-22] MEDS: guaiFENesin SUGAR FREE 200 MG/10 ML UDC PO SCH ×2 (14:01→19:58)
--- NOTE | 2023-08-22 14:46 | Electrocardiogram Report ---
Test Reason : Blood Pressure : / mmHG Vent. Rate : 092 BPM Atrial Rate : 092 BPM P-R Int : 142 ms QRS Dur : 080 ms QT Int : 376 ms P-R-T Axes : 074 063 078 degrees QTc Int : 464 ms Normal sinus rhythm Normal ECG When compared with ECG of 17-SEP-2022 14:54, No significant change was found Confirmed by Jj Smalls ([id number]) on 08/22/2023 2:46:04 PM Referred By: REFERRED SELF Confirmed By:Jj Smalls
[2023-08-22] MEDS ORDERED: predniSONE 20 MG TAB PO ONE (17:04)
--- NOTE | 2023-08-22 19:21 | Billing Data ---
Date of Service August 22, 2023 Coding Level of Care Code 37979 INT INP/OBS CARE
[2023-08-23] MEDS: methylPREDNISolone 40 MG in SYRINGE 0 ML IV SCH ×2 (01:29→12:33)
[2023-08-23] MEDS: ALBUT/IPRATROP 3MG/0.5MG NEB 3 ML VIAL NEB SCH ×6 (04:00→22:29)
[2023-08-23] MEDS: METOPROLOL SUCC 50MG EXT REL TAB PO SCH (08:02)
[2023-08-23] MEDS: PANTOprazole 40 MG TAB PO SCH (08:02)
[2023-08-23] MEDS: GABAPENTIN 800 MG TAB PO SCH ×3 (08:02→20:23)
[2023-08-23] MEDS: DULoxetine HCL 60 MG CAP PO SCH (08:04)
[2023-08-23] MEDS: guaiFENesin SUGAR FREE 200 MG/10 ML UDC PO SCH ×2 (08:05→20:24)
[2023-08-23] MEDS: traMADol HCL 50 MG TABLET PO SCH ×2 (08:17→20:22)
[2023-08-23] MEDS ORDERED: ACETAMINOPHEN 500 MG TAB PO PRN (08:21)
[2023-08-23] MEDS ORDERED: predniSONE 20 MG TAB PO SCH (09:00)
[2023-08-23] MEDS ORDERED: AZITHROMYCIN 250 MG TAB PO ONE (17:25)
--- NOTE | 2023-08-23 17:25 | Hospitalist Progress Note ---
Date of Service August 23, 2023 Assessment & Plan (1) Enterovirus infection: Plan: 73yo Female with PMH bradycardia s/p pacer, HLD, HTN, migraine, insomnia CKD3 here for concern cough. Entero/rhinovirus with hypoxia-likely cause of ongoing cough -Patient close to be titrated off oxygen -CT chest: per my read no PE, no fluid or consolidations, tree-in-bud opacities may lead to consideration of chronic bronchitis, will add azithromycin at this time -In ED received methylprednisolone and albuterol Taper steroids to p.o. dosing -ordered PRN duoneb -ordered tessalon perrls, mucinex HLD -continue atorvastatin Chronic Pain -continue gabapentin, duloxetine -continue tramadol GERD -continue protonix HTN -continue metoprolol Hx UTI -hold trimethoprim Code Status: Full DVT PPX: SCDs (2) SOB (shortness of breath): (3) Chest pain: (4) Hyperlipidemia: (5) Hypertension: (6) Migraine: (7) Insomnia: (8) Stage III chronic kidney disease: Admission and Anticipated Discharge Date Admission Date: August 22, 2023 Subjective Patient still feels very weak and has a significant cough with paroxysms at times where she cannot catch her breath. Physical Exam Physical Exam: Patient's chest exam is consistent with COPD although no smoking history except for secondhand smoke. She has no focal loss wheezes but does have a cough on examination Results & Data Results & Data Vital Signs (Past 12 Hours) Vital Signs Temp Pulse Pulse Resp BP Pulse Ox Pulse Ox 08/23/23 15:22 97.9 F 90 17 122/73 93 08/23/23 14:10 91 H 08/23/23 15:08 85 18 92 08/23/23 14:52 94 08/23/23 13:24 93 08/23/23 13:21 88 L 08/23/23 11:53 97.5 F L 85 18 120/73 100 08/23/23 11:31 83 18 92 08/23/23 08:21 97.5 F L 91 H 20 123/58 L 95 08/23/23 07:53 08/23/23 06:01 97 H 08/23/23 07:15 95 H 16 97 Pulse Ox O2 Del Method O2 Flow Rate O2 Flow Rate 08/23/23 15:22 Nasal Cannula 1 08/23/23 14:10 08/23/23 15:08 Nasal Cannula 1 08/23/23 14:52 89 L 1 08/23/23 13:24 Nasal Cannula 1 08/23/23 13:21 Room Air 08/23/23 11:53 Room Air 08/23/23 11:31 Room Air 08/23/23 08:21 Nasal Cannula 2 08/23/23 07:53 Nasal Cannula 2 08/23/23 06:01 08/23/23 07:15 Nasal Cannula 2 PG Care Time/CCT Total # of Minutes Spent Total Time Spent with Patient: Total time spent is greater than 50% in coordination of care (as documented) at patient's floor/unit and/or counseling patient: Coding Level of Care Code 03393 SUB INP/OBS CARE 2/35MIN Diagnoses Enterovirus infection B34.1 SOB (shortness of breath) R06.02 Chest pain R07.9 Hyperlipidemia E78.5 Hypertension I10 Hypertension type: primary hypertension Migraine G43.909 Insomnia G47.00 Stage III chronic kidney disease N18.3 (5) Hypertension Hypertension type: primary hypertension Qualified Code(s): I10 - Essential (primary) hypertension
[2023-08-24] MEDS: ALBUT/IPRATROP 3MG/0.5MG NEB 3 ML VIAL NEB SCH ×3 (02:59→11:04)
[2023-08-24 06:22] LABS: Hematocrit (blood only) 36.8 % (37.0-47.0); Hemoglobin 13.1 g/dl (12.0-16.0); Mean Corpuscular Hemoglobin 32.8 pg (25.0-34.0); Mean Corpuscular Hgb Conc 35.6 g/dL (32.0-36.0); Mean Platelet Volume 9.3 fL (9.4-12.4); Platelet Count 228 K/uL (130-400); RDW Coefficient of Variation 11.9 % (11.5-14.5); RDW Standard Deviation 40.3 fL (36.4-46.3); White Blood Count 11.75 K/ul (4.8-10.8)
[2023-08-24 06:37] LABS: BUN Creatinine Ratio 24.8 (10-20); Calcium 9.2 mg/dl (8.6-10.3); Creatinine Clr Calc Pharmacy 33.4 ml/min; Est GFR (African American) 42.4 ml/min; Est GFR (Non-African American) 36.6 ml/min; Magnesium 2.4 mg/dl (1.7-2.4); Potassium 4.5 mmol/L (3.5-5.1)
[2023-08-24] MEDS: METOPROLOL SUCC 50MG EXT REL TAB PO SCH (08:39)
[2023-08-24] MEDS: guaiFENesin SUGAR FREE 200 MG/10 ML UDC PO SCH (08:39)
[2023-08-24] MEDS: traMADol HCL 50 MG TABLET PO SCH (08:40)
[2023-08-24] MEDS: DULoxetine HCL 60 MG CAP PO SCH (08:40)
[2023-08-24] MEDS: GABAPENTIN 800 MG TAB PO SCH (08:40)
[2023-08-24] MEDS: PANTOprazole 40 MG TAB PO SCH (08:40)
[2023-08-24] MEDS ORDERED: predniSONE 20 MG TAB PO SCH (09:00)
[2023-08-24] MEDS ORDERED: FLUTICASONE/VILANTEROL 200/25MCG 14 PUFFS/INHALER INH SCH (09:00)
[2023-08-24] MEDS ORDERED: AZITHROMYCIN 250 MG TAB PO SCH (09:00)
--- NOTE | 2023-08-24 14:55 | Discharge Summary ---
Date of Service August 24, 2023 Admission HPI Per Admitting Provider 73yo Female with PMH bradycardia s/p pacer, HLD, HTN, migraine, insomnia CKD3 here for concern cough. Patient states her cough started 4 days ago, she had difficulty keeping food down the past 4 days due to cough. States she had a fever on day 2 that resolved. Has some chest pain that she attributes to cough. Had nausea on ambulance that resolved with medication. Otherwise denies abd pain diarrhea constipation. Patient states her coughing was worse today so came to ED. In ED she received methylprednisolone and albuterol. Currently satting 99% on 4L O2, denies SOB at this time. Patient understands she has a cold. She has a living will. POA is . 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 Entero/rhinovirus with hypoxia-likely cause of ongoing cough -Patient needed 3 L oxygen on two-step test patient was offered to stay in the hospital but wished to go home -CT chest:, no fluid or consolidations, tree-in-bud opacities may lead to consideration of chronic bronchitis, will add azithromycin at this time Taper steroids to p.o. dosing we will send home on Advair continue azithromycin (2) Hyperlipidemia: continue atorvastatin (3) Hypertension: continue metoprolol (4) Stage III chronic kidney disease: Total Time Total Time Spent Total Time Spent (In Minutes): it required greater than 30 minutes to prepare this patient for discharge Discharge Plan Discharge Items Patient Disposition: Home - Self-Care Reason For Visit: SOB Discharge Diagnosis: acute exacerbation of chronic bronchitis acute hypoxic respiratory failure Activity: Resume your previous activity Non-emergency contact: Primary Care Provider and Coiled Tubing Operator Call non-emergency contact if: your symptoms worsen Follow-up/Referrals: Shanel Mendiola MD [Primary Care Provider] - Ramiro Hernandez MD, [facility] [Physician] - Diet: Regular Addtl Attending Provider Instructions: Please rest and recover complete your antibiotics and prednisone tapering dose use your inhaler until told otherwise from your doctors is has been determined that you need oxygen at all times upon leaving the hospital. Hopefully with treatment above you may have the opportunity to get off of it but we will schedule an appointment with a analysis specialist for further outpatient treatment and recommendations to improve your breathing is much as possible Pending Studies at Discharge: No Stand-Alone Forms: My [facility] [employer], Smoking Cessation Medications and DC Order Prescriptions: New azithromycin 250 mg Tablet 250 mg PO QAM Qty: 2 0RF prednisone 10 mg tablet 10 mg PO DIRECTED Qty: 40 0RF Rx Instructions: 4 a day x 4 d>3 a day x 4 d>2 a day x 4 d>1 a day fluticasone propion-salmeterol [Advair Diskus] 250-50 mcg/dose blister with device 1 inh inhalation BID Qty: 60 1RF (DME) Oxygen Home Liters Per Minute See Rx Instructions .ROUTE Qty: 3 0RF Rx Instructions: As directed Continued omeprazole 20 mg capsule,delayed release(DR/EC) 20 mg PO DAILY Qty: 90 3RF duloxetine 60 mg capsule,delayed release(DR/EC) 60 mg PO DAILY 90 Days Qty: 90 1RF sumatriptan succinate 50 mg tablet See Rx Instructions PO .COMPLEX Qty: 16 5RF Dose Instruction: take 1 tab at onset of headache; if no relief may repeat 1 tab in 2hr; max = 4 tabs/day (24hr) PO Rx Instructions: take 1 tab at onset of headache; if no relief may repeat 1 tab in 2hr; max = 4 tabs/day (24hr) PO multivitamin [Daily Multi-Vitamin] Tablet 1 tab PO DAILY atorvastatin 10 mg tablet 10 mg PO [id number] Rx Instructions: 10 mg orally Friday/Friday/Friday; metoprolol succinate 100 mg tablet extended release 24 hr 150 mg PO DAILY Rx Instructions: Take 1 and 1/2 tablets by mouth every day tramadol 50 mg tablet 50 mg PO BID gabapentin 800 mg tablet 800 mg PO TID Rx Instructions: TAKE 1 TABLET BY MOUTH THREE TIMES A DAY Held trimethoprim 100 mg tablet 100 mg PO QPM Qty: 90 3RF Hold Instructions: Resume on 08/27/23. Discharge Orders: Discharge Order (Routine); Ordered 08/24/23 Ordered By: Jm Cedillo Admission Data Admit Date/Time: 08/22/23 01:52 Attending Provider: Jm Cedillo Admit Provider: Marci King Primary Care Provider: Shanel Mendiola V. Other Providers: Emanuel Finley Other Interventions: Discharge Summary Assessment (RN) Last Done: 08/24/23 10:55 Coding Level of Care Code 70356 INP/OBS DISCH >30 MIN Diagnoses Enterovirus infection B34.1 Hyperlipidemia E78.5 Hypertension I10 Hypertension type: primary hypertension Stage III chronic kidney disease N18.3
== END 2023-08-24 13:27 | disposition home or self-care (01) | DRG 202 ==
LOC: ED 22:03 → SUATTDRO 08-22 01:52 → EDINP 08-22 01:52 → 2W 08-22 03:23

== ENCOUNTER 2023-08-26 12:45 | Inpatient (IN) ==
--- NOTE | 2023-08-26 12:53 | ED Triage Note ---
Date of Service August 26, 2023 History of Present Illness This patient was briefly evaluated while in triage. An abbreviated physical exam was performed. This patient is a 73-year-old Female who presents to the ED for evaluation of shortness of breath. She was recently discharged home from the hospital with diagnosis of a respiratory illness. She was sent home on 1L of oxygen but has been feeling short of breath and increased her oxygen at home. Physical Exam VITALS: Vitals are noted on the nurse's note and reviewed by myself. GENERAL: This is a 73-year-old female, tachypneic, appears short of breath. SKIN: The skin was without rashes. HEART: Regular rate and rhythm without murmurs gallops or rubs. LUNGS: Crackles bilateral bases. EXTREMITIES: No lower extremity edema. NEURO: Patient was alert and oriented to person place and time. Initial orders for labs and / or imaging were placed and patient was placed in the waiting area until a bed is available. Please see further documentation for the full ED course.
[2023-08-26] MEDS ORDERED: ALBUT/IPRATROP 3MG/0.5MG NEB 3 ML VIAL NEB STA (12:55)
--- NOTE | 2023-08-26 13:28 | Emergency Department Note ---
Impression & Plan Hypoxia, Shortness of breath, Viral URI ED Provider Note NAME: TO RED AGE: 73 SEX: F : 1950 ARRIVES VIA: Ambulance INFORMANT: Patient ED PROVIDER(S): Vega Estrada DO CHIEF COMPLAINT: shortness of breath HPI: Patient is a 73-year-old female who was recently admitted and discharged from [facility] for enterovirus with hypoxia. She was discharged on 3 L nasal cannula with exertion and 1 L with rest. She comes back in as she is significantly short of breath, weak and cannot get up and get around. She admits that she still has a cough and congestion. No fevers. No belly pain, nausea, vomiting, or diarrhea. No dysuria, urgency, or frequency. No other exacerbating or remitting factors. ADDITIONAL HISTORY OBTAINED: Per HPI Chronic Medical/Social Conditions Affecting Care: Per HPI PAST MEDICAL HISTORY:See Below PAST SURGICAL HISTORY:See Below FAMILY HISTORY:See Below SOCIAL HISTORY:See Below HOME MEDICATIONS:See Below ALLERGIES:See Below VITALS:See Below PHYSICAL EXAMINATION: GENERAL: Sitting up in bed, alert, well appearing, well nourished, no distress, non-toxic EYE EXAM: normal conjunctiva. OROPHARYNX: no exudate, no erythema, lips, buccal mucosa, and tongue normal and mucous membranes are moist NECK: supple, no nuchal rigidity, no adenopathy, non-tender LUNGS: Diminished bilaterally. Normal chest wall mechanics HEART: no murmurs, S1 normal and S2 normal ABDOMEN: abdomen soft, non-tender, normo-active bowel sounds, no masses, no rebound or guarding. UPPER EXTREMITIES: upper extremities are grossly normal. LOWER EXTREMITIES: No pitting edema. Calf cervical bilateral NEURO EXAM: Normal sensorium, cranial nerves II-XII grossly intact, normal speech, no gross weakness of arms, no gross weakness of legs. MEDICAL DECISION MAKING: Patient is a 73-year-old female who presents ER for above-stated complaint. IV was established blood work is obtained. Labs show mild leukocytosis of 13,000. No significant anemia. BMP with creatinine 1.3. Bilirubin and LFTs were u nremarkable. Troponin was negative. CTA of the chest was negative on the 12th of this month for PE. Patient was given neb treatments as well as steroids updated bedside discussed the case with the hospitalist admitted for further work-up. She was positive for enterovirus on last admission several days ago. She remained on 6 L nasal cannula throughout her stay in the ER which is significantly increased from her baseline upon discharge which was 1 to 3 L. External Records Reviewed: Recent admission reviewed with enterovirus Consults/Care Managements Discussions: Per [facility] Triage Nursing notes reviewed. Limited review of prior medical records performed Vital Signs: reviewed and remarkable for hypoxic Differential diagnosis: Differential diagnoses includes but is not limited to pneumonia, bronchitis, COPD/Asthma exacerbation, pneumothorax, pulmonary embolism, congestive heart failure, acute coronary syndrome ER treatment provided: See below Diagnostics interpreted by me include EKG and cardiac monitoring as listed below: -Cardiac Monitoring: An order was placed for continuous cardiac monitoring. The monitor shows a rate of 101 with sinus rhythm. -ECG: Sinus rhythm rate of 98 Normal axis No PVCs QTc 451 -Laboratory studies:Interpreted by me as stated above in MDM and shown below. Imaging studies: Xrays: As interpreted by me: Portable AP upright 1 view of the chest shows no focal infiltrate CTs show: none Procedures:none Critical Care: I have personally spent 32 minutes of critical care time in the direct management of this patient. This includes bedside care, interpretation of diagnostic studies, and testing, discussion with consultants, patient, and family members, and other required patient management activities. This 32 minutes is in excess of all separately billable procedures. Past Med/Surg History Medical History (Updated 08/26/23 @ 16:35 by Vega Estrada DO) Atrial fibrillation Balance problem Cerebrovascular disease Gait disturbance Hyperlipidemia Hypertension Hypoxia Insomnia Low back pain Migraine Osteoporosis Pacemaker at end of battery life Parkinsonism Peripheral neuropathy Polyneuropathy Presence of cardiac pacemaker Right sided abdominal pain SSS (sick sinus syndrome) Stage III chronic kidney disease Vitamin B12 deficiency Vitamin D deficiency Surgical History History of back surgery S/P cardiac pacemaker procedure Family History Mother Hypertension Father Hypertension Family/Other Heart disease Denies family history of Colon cancer Ovarian cancer Prostate cancer Chronic kidney disease Myocardial infarction Breast cancer Social History Smoking Status: Former smoker Hx Alcohol Use: No Hx Substance Use: No Preferred Language: Indonesian Communication Ability: Effective Visual Impairment: No Limitations Hearing Ability: Normal Belt Sander Required: No Beliefs That Will Affect Care: None marital status: Current Living Situation: Spouse current occupational status: retired Feels Safe at Home: Yes Childhood Exposure to Second-Hand Smoke: Yes Dental Care, Regularly: No Physical Activity Frequency: Does not Exercise Seatbelt Use: always Sunscreen Use: No Assistive Devices: Cane Allergies Allergies Allergy/AdvReac Type Severity Reaction Status Date / Time Penicillins Allergy Intermediate HIVES Verified 08/22/23 00:04 codeine Allergy Unknown BLOOD Verified 08/22/23 00:04 PRESSURE DROPS morphine Allergy Unknown HYPOTENSION Verified 08/22/23 00:04 Home Meds Home Medications Medication Instructions Recorded Confirmed multivitamin (Daily Multi-Vitamin 1 tab PO DAILY 06/05/20 08/26/23 tablet) atorvastatin 10 mg tablet 10 mg PO 3XWK 08/22/23 08/26/23 gabapentin 800 mg tablet 800 mg PO TID 08/22/23 08/26/23 metoprolol succinate 100 mg 150 mg PO DAILY 08/22/23 08/26/23 tablet,extended release 24 hr tramadol 50 mg tablet 50 mg PO BID 08/22/23 08/26/23 Previous Rx's Medication Instructions Recorded omeprazole 20 mg capsule,delayed 20 mg PO DAILY #90 caps 09/17/22 release duloxetine 60 mg capsule,delayed 60 mg PO DAILY 90 days #90 caps 12/09/22 release sumatriptan succinate 50 mg tablet See Rx Instructions PO .COMPLEX 12/19/22 #16 tabs trimethoprim 100 mg tablet 100 mg PO QPM #90 tabs 03/19/23 Oxygen Home #3 L 08/24/23 fluticasone 250 mcg-salmeterol 50 1 inh inhalation BID #60 ea 08/24/23 mcg/dose blistr powdr for inhalation (Advair Diskus) prednisone 10 mg tablet 10 mg PO DIRECTED #40 tabs 08/24/23 Results & Data (ED) Vital Signs Vital Signs - 24 hr 08/26/23 12:52 08/26/23 13:18 08/26/23 13:26 Temperature 36.7 C Temperature Source Temporal Artery Scan Pulse Rate 110 H 104 H Pulse Rate [Apical] Pulse Rhythm [Apical] Pulse Strength [Apical] Respiratory Rate 20 Respiratory Effort / Characteristics Non-Labored Spontaneous Respiratory Depth Normal Blood Pressure 148/83 H Blood Pressure [Right Arm] Blood Pressure Mean 104 Blood Pressure Mean [Right Arm] Blood Pressure Position [Right Arm] Pulse Oximetry 99 94 Oxygen Delivery Method Nasal Cannula Nasal Cannula Oxygen Flow Rate 6 6 Sepsis Recent Fever Within 48 Hours No Sepsis New/Unexplained Change in Mental Status No Sepsis Action Taken by Nursing No Action Required 08/26/23 13:26 08/26/23 13:26 Temperature Temperature Source Pulse Rate 97 H Pulse Rate [Apical] 105 H Pulse Rhythm [Apical] Regular Pulse Strength [Apical] Normal Respiratory Rate 16 16 Respiratory Effort / Characteristics Non-Labored Spontaneous Respiratory Depth Normal Blood Pressure Blood Pressure [Right Arm] 173/97 H Blood Pressure Mean Blood Pressure Mean [Right Arm] 122 Blood Pressure Position [Right Arm] Semi-fowlers Pulse Oximetry 94 96 Oxygen Delivery Method Nasal Cannula Nasal Cannula Oxygen Flow Rate 6 6 Sepsis Recent Fever Within 48 Hours Sepsis New/Unexplained Change in Mental Status Sepsis Action Taken by Nursing Laboratory Data 08/26/23 13:15 08/26/23 13:15 Lab Results 08/26/23 08/26/23 Range/Units 13:15 13:15 WBC 13.49 H (4.8-10.8) K/ul RBC 4.92 (4.20-5.40) M/uL Hgb 16.3 H (12.0-16.0) g/dl Hct 44.5 (37.0-47.0) % MCV 90.4 (80.0-100.0) fL MCH 33.1 (25.0-34.0) pg MCHC 36.6 H (32.0-36.0) g/dL RDW Std Deviation 39.8 (36.4-46.3) fL RDW Coeff of Saskia 11.9 (11.5-14.5) % Plt Count 302 (130-400) K/uL MPV 9.8 (9.4-12.4) fL Immature Gran % (Auto) 1.6 % Neut % (Auto) 86.1 % Lymph % (Auto) 7.3 % [place] % (Auto) 4.7 % Eos % (Auto) 0.1 % Baso % (Auto) 0.2 % Neut # (Auto) 11.61 H (1.40-6.50) K/uL Lymph # (Auto) 0.99 L (1.20-3.40) K/uL [place] # (Auto) 0.64 H (0.11-0.59) K/uL Eos # (Auto) 0.01 (0.00-0.50) K/uL Baso # (Auto) 0.03 (0.00-0.20) K/uL Immature Gran # (Auto) 0.21 H (0.01-0.20) K/uL Sodium 137 (136-145) mmol/L Potassium 3.5 (3.5-5.1) mmol/L Chloride 102 (98-107) mmol/L Carbon Dioxide 25 (21-32) mmol/L Anion Gap 10 (3-11) BUN 33 H (6-23) mg/dl Creatinine 1.37 H (0.6-1.2) mg/dl Est Cr Clr Drug Dosing 36.3 ml/min Est GFR ( Amer) 43.9 ml/min Est GFR (Non-Af Amer) 37.9 ml/min BUN/Creatinine Ratio 24.1 H (10-20) Glucose 128 H (70-99(Fasting)) mg/dl Calcium 9.9 (8.6-10.3) mg/dl Total Bilirubin 1.1 H (0.2-1.0) mg/dl AST 22 (13-39) U/L ALT 23 (7-52) U/L Alkaline Phosphatase 66 (34-104) U/L Troponin I High Sens 9.9 (0-14) pg/ml Total Protein 7.6 (6.0-8.3) gm/dl Albumin 4.5 (3.4-5.0) gm/dl Globulin 3.1 (2.5-4.0) gm/dl Albumin/Globulin Ratio 1.5 (0.9-2) Administered Medications Discontinued Medications Albuterol (Albut/Ipratrop 3mg/0.5mg Neb 3 Ml Vial) 3 ml NEB NOW STA; Protocol Stop: 08/26/23 12:56 Last Admin: 08/26/23 13:31 Dose: 3 ml Documented By: FACUNDO Albuterol (Albuterol 0.083% Nebu Soln 3 Ml Vial) 7.5 mg NEB NOW STA; Protocol Stop: 08/26/23 14:28 Last Admin: 08/26/23 14:41 Dose: 7.5 mg Documented By: FACUNDO Methylprednisolone (Methylprednisolone 125 Mg/2 Ml Vial) 60 mg IV NOW STA Stop: 08/26/23 14:54 Last Admin: 08/26/23 15:30 Dose: 60 mg Documented By: FACUNDO Imaging Data Radiologist's Impression: Chest X-Ray 08/26/23 12:54 XR chest 1V portable CLINICAL HISTORY: Dyspnea TECHNIQUE: Single frontal radiograph of the chest was obtained. Comparison: Comparison is made to chest radiograph 08/21/2023 FINDINGS: An implanted pacemaker is seen. The cardiomediastinal silhouette is normal. The lungs are clear. No evidence of pleural effusion or pneumothorax. IMPRESSION: No acute abnormalities and in particular no radiographic evidence of pneumonia. ACT 112: Negative or not required by law. Electronically signed by: Ted Galvan M.D. 08/26/2023 2:23 PM Discharge Plan Visit Data Chief Complaint: Shortness of Breath/Dyspnea Stated Complaint: SOB ED Provider: Vega Estrada Discharge Problem: Hypoxia, Shortness of breath, Viral URI Forms Stand Alone Forms: My [facility] Prescriptions Prescriptions: No Action omeprazole 20 mg capsule,delayed release(DR/EC) 20 mg PO DAILY Qty: 90 3RF duloxetine 60 mg capsule,delayed release(DR/EC) 60 mg PO DAILY 90 Days Qty: 90 1RF sumatriptan succinate 50 mg tablet See Rx Instructions PO .COMPLEX Qty: 16 5RF Dose Instruction: take 1 tab at onset of headache; if no relief may repeat 1 tab in 2hr; max = 4 tabs/day (24hr) PO Rx Instructions: take 1 tab at onset of headache; if no relief may repeat 1 tab in 2hr; max = 4 tabs/day (24hr) PO trimethoprim 100 mg tablet 100 mg PO QPM Qty: 90 3RF Hold Instructions: Resume on 08/27/23. multivitamin [Daily Multi-Vitamin] Tablet 1 tab PO DAILY atorvastatin 10 mg tablet 10 mg PO 3XWK Rx Instructions: 10 mg orally Friday/Friday/Friday; metoprolol succinate 100 mg tablet extended release 24 hr 150 mg PO DAILY Rx Instructions: Take 1 and 1/2 tablets by mouth every day tramadol 50 mg tablet 50 mg PO BID gabapentin 800 mg tablet 800 mg PO TID Rx Instructions: TAKE 1 TABLET BY MOUTH THREE TIMES A DAY prednisone 10 mg tablet 10 mg PO DIRECTED Qty: 40 0RF Rx Instructions: 4 a day x 4 d>3 a day x 4 d>2 a day x 4 d>1 a day fluticasone propion-salmeterol [Advair Diskus] 250-50 mcg/dose blister with device 1 inh inhalation BID Qty: 60 1RF (DME) Oxygen Home Liters Per Minute See Rx Instructions .Route Qty: 3 0RF Rx Instructions: As directed Referrals Referrals: Shanel Mendiola MD [Primary Care Provider] -
[2023-08-26 13:55] LABS: Basophils # (auto) 0.03 K/uL (0.00-0.20); Basophils % (auto) 0.2 %; Eosinophils # (auto) 0.01 K/uL (0.00-0.50); Eosinophils % (auto) 0.1 %; Hematocrit (blood only) 44.5 % (37.0-47.0); Hemoglobin 16.3 g/dl (12.0-16.0); Immature Granulocytes # (auto) 0.21 K/uL (0.01-0.20); Immature Granulocytes % (auto) 1.6 %; Lymphocytes # (auto) 0.99 K/uL (1.20-3.40); Lymphocytes % (auto) 7.3 %; Mean Corpuscular Hemoglobin 33.1 pg (25.0-34.0); Mean Corpuscular Hgb Conc 36.6 g/dL (32.0-36.0); Mean Corpuscular Volume 90.4 fL (80.0-100.0); Mean Platelet Volume 9.8 fL (9.4-12.4); Monocytes # (auto) 0.64 K/uL (0.11-0.59); Monocytes % (auto) 4.7 %; Neutrophils # (auto) 11.61 K/uL (1.40-6.50); Neutrophils % (auto) 86.1 %; Platelet Count 302 K/uL (130-400); RDW Coefficient of Variation 11.9 % (11.5-14.5); RDW Standard Deviation 39.8 fL (36.4-46.3); Red Blood Count 4.92 M/uL (4.20-5.40); White Blood Count 13.49 K/ul (4.8-10.8)
[2023-08-26 14:16] LABS: Albumin Globulin Ratio 1.5 (0.9-2); Albumin Level 4.5 gm/dl (3.4-5.0); BUN Creatinine Ratio 24.1 (10-20); Bilirubin,Total 1.1 mg/dl (0.2-1.0); Calcium 9.9 mg/dl (8.6-10.3); Creatinine Clr Calc Pharmacy 36.3 ml/min; Est GFR (African American) 43.9 ml/min; Est GFR (Non-African American) 37.9 ml/min; Globulin 3.1 gm/dl (2.5-4.0); Potassium 3.5 mmol/L (3.5-5.1); Total Protein 7.6 gm/dl (6.0-8.3)
[2023-08-26 14:20] LABS: Troponin I High Sensitivity 9.9 pg/ml (0-14)
--- NOTE | 2023-08-26 14:24 | XRay Report ---
XR chest 1V portable CLINICAL HISTORY: Dyspnea TECHNIQUE: Single frontal radiograph of the chest was obtained. Comparison: Comparison is made to chest radiograph 08/21/2023 FINDINGS: An implanted pacemaker is seen. The cardiomediastinal silhouette is normal. The lungs are clear. No e vidence of pleural effusion or pneumothorax. IMPRESSION: No acute abnormalities and in particular no radiographic evidence of pneumonia. ACT 112: Negative or not required by law. Electronically signed by: Ted Galvan M.D. 08/26/2023 2:23 PM
[2023-08-26] MEDS ORDERED: ALBUTEROL 0.083% NEBU SOLN 3 ML VIAL NEB STA (14:27)
--- NOTE | 2023-08-26 14:38 | Electrocardiogram Report ---
Test Reason : Blood Pressure : / mmHG Vent. Rate : 098 BPM Atrial Rate : 098 BPM P-R Int : 140 ms QRS Dur : 084 ms QT Int : 354 ms P-R-T Axes : 058 024 070 degrees QTc Int : 451 ms Normal sinus rhythm Diffuse Minor Nonspecific ST abnormality Abnormal ECG When compared with ECG of 21-AUG-2023 22:12, No significant change was found Confirmed by Domingo Do ([id number]) on 08/26/2023 2:38:13 PM Referred By: Confirmed By:Domingo Do
[2023-08-26] MEDS ORDERED: methylPREDNISolone 125 MG/2 ML VIAL IV STA (14:53)
--- NOTE | 2023-08-26 15:05 | History & Physical Report ---
Date of Service August 26, 2023 Assessment & Plan (1) Pulmonary embolism: Plan: Clinically, SOB at rest and dry cough Patient denies pleuritic chest pain, but endorses "chest heaviness" and is tachycardic on arrival She reports she has not been eating or drinking much since discharge on 08/24 Patient had recent hospitalization from 08/21 to 08/24 without chemical DVT PPx Procalcitonin WNL D-dimer positive at 1750 Chest CTA significant for segmental pulmonary embolism within the RUL (this was new when compared to chest CT on 08/21) No history of prior DVT/PE per patient aPTT ordered Heparin IV standard weight-based bolus started in the ED per PE protocol Continue to provide supplemental oxygen as needed with target goal SpO2 >94% Discontinued methylprednisolone and DuoNeb as the etiology of her SOB likely due to PE, and not recent enterovirus infection Tessalon Perles as needed Echo ordered to check for RVSP; until then, caution overloading patient with fluids We will need to discuss 3-month duration of anticoagulant therapy for first unprovoked PE upon discharge (2) Enterovirus infection: Plan: Recently discharged from [facility] on 08/24 for enterovirus Discharged on azithromycin, steroid taper, and Advair Mild leukocytosis at 13.49 with neutrophil predominance; in the setting of recent steroid use While this recent infection may be contributing to her SOB, the PE is more likely the cause of her acute decline (3) Hyperlipidemia: Plan: Continue atorvastatin (4) Hypertension: Plan: Continue metoprolol (5) Chronic pain: Plan: Continue gabapentin, duloxetine, and tramadol (6) Stage III chronic kidney disease: Plan: BUN 33, creatinine 1.37 (baseline 1.30s) Continue to monitor via daily BMPs Avoid nephrotoxic agents Plan Admit to [facility] telemetry Full code VTE PPx: Heparin Regular diet as tolerated History of Present Illness Chief Complaint: Worsening SOB x 2 days Primary Care Provider: Shanel Mendiola MD Caitlin is a 73yo female with PMHx of bradycardia s/p pacer, HLD, HTN, migraine, insomnia, and CKD stage III. She returns with worsening SOB after recent discharge with enterovirus on 08/24 from [facility]. Patient reports she was feeling fine at time of discharge on Friday 08/24, but breathing declined acutely at home. Her (Leo) is present at the bedside and provides additional history. Patient was discharged on supplemental oxygen therapy (1 L at rest, 3 L while walking), but symptoms did not improve. Normally, she does not use oxygen at home. Current SOB at rest; it is positional (better when sitting up). She endorses generalized weakness, chest heaviness, and reports she has not been eating much; only some chicken broth. Patient denies PMH of COPD, asthma, or prior DVT/PE. She further denies history of blood thinner use, issues with blood thinners, or low platelets. Former smoker; quit >50 years ago. Vitals: patient's SpO2 at 96% on 6 L non-rebreather; tachycardic in 120s; hypertensive at 173/97. ED course: Albuterol DuoNeb, Solu-Medrol 60 mg IV ROS: She further endorses sweating, dry cough, and numbness / tingling in the legs (which is chronic). She denies fevers, chills, CP, abdominal pain, or swelling in legs. Allergies Allergy/AdvReac Type Severity Reaction Status Date / Time Penicillins Allergy Intermediate HIVES Verified 08/22/23 00:04 codeine Allergy Unknown BLOOD Verified 08/22/23 00:04 PRESSURE DROPS morphine Allergy Unknown HYPOTENSION Verified 08/22/23 00:04 Home Medications Medication Instructions Recorded Confirmed Type multivitamin (Daily Multi-Vitamin 1 tab PO DAILY 06/05/20 08/26/23 History tablet) omeprazole 20 mg capsule,delayed 20 mg PO DAILY #90 caps 09/17/22 08/26/23 Rx release duloxetine 60 mg capsule,delayed 60 mg PO DAILY 90 days #90 caps 12/09/22 08/26/23 Rx release sumatriptan succinate 50 mg tablet See Rx Instructions PO .COMPLEX 12/19/22 08/26/23 Rx #16 tabs trimethoprim 100 mg tablet 100 mg PO QPM #90 tabs 03/19/23 08/26/23 Rx atorvastatin 10 mg tablet 10 mg PO 3XWK 08/22/23 08/26/23 History gabapentin 800 mg tablet 800 mg PO TID 08/22/23 08/26/23 History metoprolol succinate 100 mg 150 mg PO DAILY 08/22/23 08/26/23 History tablet,extended release 24 hr tramadol 50 mg tablet 50 mg PO BID 10/13/23 10/17/23 History Oxygen Home #3 L 08/24/23 08/26/23 Rx fluticasone 250 mcg-salmeterol 50 1 inh inhalation BID #60 ea 08/24/23 08/26/23 Rx mcg/dose blistr powdr for inhalation (Advair Diskus) prednisone 10 mg tablet 10 mg PO DIRECTED #40 tabs 08/24/23 08/26/23 Rx rivaroxaban 15 mg (42)-20 mg (9) See Rx Instructions PO .COMPLEX 08/30/23 Rx tablets in a starter pack (Xarelto #51 ea DVT-PE Treatment 30-Day Starter) Past Med/Surg History Medical History (Updated 08/27/23 @ 13:25 by Juan Buchanan MD) Atrial fibrillation Balance problem Cerebrovascular disease Chronic pain Gait disturbance Hyperlipidemia Hypertension Hypoxia Insomnia Low back pain Migraine Osteoporosis Pacemaker at end of battery life Parkinsonism Peripheral neuropathy Polyneuropathy Presence of cardiac pacemaker Right sided abdominal pain SSS (sick sinus syndrome) Stage III chronic kidney disease Vitamin B12 deficiency Vitamin D deficiency Surgical History History of back surgery S/P cardiac pacemaker procedure Family History Mother Hypertension Father Hypertension Family/Other Heart disease Denies family history of Colon cancer Ovarian cancer Prostate cancer Chronic kidney disease Myocardial infarction Breast cancer Social History Smoking Status: Former smoker Hx Alcohol Use: No Hx Substance Use: No Preferred Language: Greek Communication Ability: Effective Visual Impairment: No Limitations Hearing Ability: Normal Kennel Helper Required: No Beliefs That Will Affect Care: None marital status: Current Living Situation: Spouse current occupational status: retired Feels Safe at Home: Yes Childhood Exposure to Second-Hand Smoke: Yes Dental Care, Regularly: No Physical Activity Frequency: Does not Exercise Seatbelt Use: always Sunscreen Use: No Assistive Devices: Oxygen - Continuous Review of Systems Review of Systems: See HPI above Physical Exam Physical Exam: General: patient appears in moderate respiratory distress; lethargic; appears stated age; cooperative HEENT: normocephalic, atraumatic; no scleral icterus; PERRLA w/ EOMs intact; moist mucus membrane; trachea midline; vision and hearing grossly intact Skin: warm, dry without signs of tenting; no cyanosis; no rashes or lesions noted Cardiac: RRR; no new murmurs noted Pulm: Moderate respiratory distress; symmetrical chest expansion; clear breath sounds across all lung holder without adventitious sounds; negative for wheezing Abdominal: Soft, nontender to palpation; BS present; no ascites; no distention MSK: no tics or fasciculations; no edema noted in the LEs b/l; pulses intact and symmetrical at radial, DP, and PT Neuro: A&Ox3; no tremors; no focal defects Results & Data Results & Data Vital Signs (Past 12 Hours) Vital Signs Temp Pulse Pulse Resp BP BP Pulse Ox 08/26/23 13:26 97 H 16 96 08/26/23 13:26 105 H 16 173/97 H 94 08/26/23 13:26 94 08/26/23 13:18 104 H 08/26/23 12:52 36.7 C 110 H 20 148/83 H 99 O2 Del Method O2 Flow Rate 08/26/23 13:26 Nasal Cannula 6 08/26/23 13:26 Nasal Cannula 6 08/26/23 13:26 Nasal Cannula 6 08/26/23 13:18 08/26/23 12:52 Nasal Cannula 6 Laboratory Results Abnormal lab results 08/26/23 08/26/23 08/26/23 Range/Units 13:15 13:15 13:15 WBC 13.49 H (4.8-10.8) K/ul Hgb 16.3 H (12.0-16.0) g/dl MCHC 36.6 H (32.0-36.0) g/dL Neut # (Auto) 11.61 H (1.40-6.50) K/uL Lymph # (Auto) 0.99 L (1.20-3.40) K/uL Cascade # (Auto) 0.64 H (0.11-0.59) K/uL Immature Gran # (Auto) 0.21 H (0.01-0.20) K/uL D-Dimer 1750 H* (0-500) ug/L FEU BUN 33 H (6-23) mg/dl Creatinine 1.37 H (0.6-1.2) mg/dl BUN/Creatinine Ratio 24.1 H (10-20) Glucose 128 H (70-99(Fasting)) mg/dl Total Bilirubin 1.1 H (0.2-1.0) mg/dl Diagnostic Findings Chest X-Ray 08/26/23 12:54 XR chest 1V portable CLINICAL HISTORY: Dyspnea TECHNIQUE: Single frontal radiograph of the chest was obtained. Comparison: Comparison is made to chest radiograph 08/21/2023 FINDINGS: An implanted pacemaker is seen. The cardiomediastinal silhouette is normal. The lungs are clear. No evidence of pleural effusion or pneumothorax. IMPRESSION: No acute abnormalities and in particular no radiographic evidence of pneumonia. ACT 112: Negative or not required by law. Electronically signed by: Ted Galvan M.D. 08/26/2023 2:23 PM Chest CTA 08/26/23 16:58 CT ANGIOGRAPHY OF THE CHEST, PULMONARY EMBOLUS PROTOCOL CLINICAL HISTORY: Shortness of breath. Cough. Evaluate for pulmonary embolus. COMPARISON STUDY: Chest CT August 22, 2017 and chest radiograph performed earlier today. TECHNIQUE: Following IV administration of 114 mL of Optiray, helical axial images of the chest were obtained utilizing the pulmonary embolus protocol. Maximal intensity projections and sagittal and coronal reformats were viewed on an independent 3D workstation. IV contrast was administered without complication. Automated exposure control was utilized for the study. A dose lowering technique was utilized adhering to the principles of ALARA. CT DOSE: 757.24 mGy.cm FINDINGS: There is a segmental pulmonary embolus within the anterior segment of the right upper lobe on axial image 150 of 231. This was not present on CT of August 22, 2023. No additional pulmonary emboli are identified although exam is compromised by respiratory motion. There is no thoracic aortic dissection. Left subclavian pacer is in place. There is no pericardial effusion. No pneumothorax is present. Bilateral lobe bronchial wall thickening with mucus plugging is noted. Mild bilateral lower lobe airspace opacities have developed since chest CT of August 22, 2023. There is no thoracic lymphadenopathy. Old mild T11 compression fracture is incidentally noted. IMPRESSION: 1. Segmental pulmonary embolus within the right upper lobe, new since chest CT of August 22, 2023. No additional pulmonary emboli identified. 2. Interval development of mild bilateral lower lobe airspace opacities. Although these could reflect atelectasis, the findings favor pneumonia or aspiration pneumonitis. ACT 112: Negative or not required by law. Electronically signed by: Feliciano Ross M.D. 08/26/2023 7:07 PM Code Status & VTE Plan Code Status Full code VTE Prophylaxis Plan VTE Prophylaxis will be ordered: Yes Supervising Physician Co-Signing Physician Notes Patient seen and examined, chart reviewed, case discussed with Deni Umaña PA-C and I agree with the assessment and plan as above except as otherwise noted Labs and images reviewed Caitlin is a 73-year-old female who presents with worsening shortness of breath, tachycardia, and hypoxia. She is short of breath at rest and has had increased weakness and poor p.o. intake. Chest x-ray is clear. D-dimer elevated, repeat CTA shows PE. She has not been on anticoagulation previously. On exam lungs are clear, heart rate is tachycardic but regular, lungs are grossly clear. Started on heparin for acute PE. She is not wheezing on exam, steroids discontinued agree with assessment and management above. PG Care Time/CCT Total # of Minutes Spent Total Time Spent with Patient: Total time spent is greater than 50% in coordination of care (as documented) at patient's floor/unit and/or counseling patient: C[place] [address] INT INP/OBS CARE 3/75MIN Patient Type Established Medical Decision Making High Complexity Diagnoses Pulmonary embolism I26.99 Enterovirus infection B34.1 Hyperlipidemia E78.5 Hypertension I10 Hypertension type: primary hypertension Chronic pain G89.29 Stage III chronic kidney disease N18.3 (4) Hypertension Hypertension type: primary hypertension Qualified Code(s): I10 - Essential (primary) hypertension
[2023-08-26 16:58] LABS: D Dimer 1750 ug/L FEU (0-500)
[2023-08-26] MEDS: PLASMA-LYTE A 500 ML IV SCH ×2 (17:02→23:40)
[2023-08-26] MEDS ORDERED: ACETAMINOPHEN 325 MG TAB PO PRN (18:21)
[2023-08-26] MEDS ORDERED: BENZONATATE 100 MG CAPSULE PO PRN (18:21)
[2023-08-26] MEDS ORDERED: OPTIRAY 320 500ml IV ONE (18:22)
[2023-08-26] MEDS ORDERED: SUMAtriptan succinate 50 MG TAB PO PRN (18:31)
[2023-08-26] MEDS ORDERED: ALBUT/IPRATROP 3MG/0.5MG NEB 3 ML VIAL NEB SCH (19:00)
--- NOTE | 2023-08-26 19:08 | CT Scan Report ---
CT ANGIOGRAPHY OF THE CHEST, PULMONARY EMBOLUS PROTOCOL CLINICAL HISTORY: Shortness of breath. Cough. Evaluate for pulmonary embolus. COMPARISON STUDY: Chest CT August 22, 2017 and chest radiograph performed earlier today. TECHNIQUE: Following IV administration of 114 mL of Optiray, helical axial images of the chest were o btained utilizing the pulmonary embolus protocol. Maximal intensity projections and sagittal and cor onal reformats were viewed on an independent 3D workstation. IV contrast was administered without co mplication. Automated exposure control was utilized for the study. A dose lowering technique was ut ilized adhering to the principles of ALARA. CT DOSE: 757.24 mGy.cm FINDINGS: There is a segmental pulmonary embolus within the anterior segment of the right upper lobe on axial image 150 of 231. This was not present on CT of August 22, 2023. No additional pulmonary e mboli are identified although exam is compromised by respiratory motion. There is no thoracic aortic dissection. Left subclavian pacer is in place. There is no pericardial effusion. No pneumothorax is p resent. Bilateral lobe bronchial wall thickening with mucus plugging is noted. Mild bilateral lower l obe airspace opacities have developed since chest CT of August 22, 2023. There is no thoracic lympha denopathy. Old mild T11 compression fracture is incidentally noted. IMPRESSION: 1. Segmental pulmonary embolus within the right upper lobe, new since chest CT of August 22, 2023. N o additional pulmonary emboli identified. 2. Interval development of mild bilateral lower lobe airspace opacities. Although these could reflect atelectasis, the findings favor pneumonia or aspiration pneumonitis. ACT 112: Negative or not required by law. Electronically signed by: Feliciano Ross M.D. 08/26/2023 7:07 PM
[2023-08-26] MEDS: FLUTICASONE/VILANTEROL 200/25MCG 14 PUFFS/INHALER INH SCH (19:21)
[2023-08-26] MEDS: GABAPENTIN 800 MG TAB PO SCH (19:21)
[2023-08-26] MEDS ORDERED: Heparin IV Adult Wt-Based Standard WITH Bolus Protocol IV SCH (19:27)
[2023-08-26 19:55] LABS: Partial Thromboplastin Ratio 0.8; Partial Thromboplastin Time 23.1 Seconds (21.0-31.0)
[2023-08-26] MEDS ORDERED: HEPARIN SOD (PORCINE) 1000 UNIT/ML IV ONE (21:00)
[2023-08-26] MEDS: HEPARIN SODIUM/DEXTROSE 25,000 UNITS/500 ML BAG IV SCH (21:16)
[2023-08-26] MEDS: traMADol HCL 50 MG TABLET PO SCH (21:35)
[2023-08-26] MEDS ORDERED: methylPREDNISolone 40 MG in SYRINGE 0 ML IV SCH (22:00)
[2023-08-27 04:34] LABS: Partial Thromboplastin Ratio > 4.9
[2023-08-27 05:06] LABS: Partial Thromboplastin Time > 139.0 Seconds (21.0-31.0)
[2023-08-27] MEDS: PLASMA-LYTE A 500 ML IV SCH ×2 (06:05→13:51)
[2023-08-27] MEDS: PANTOprazole 40 MG TAB PO SCH (08:37)
[2023-08-27 08:38] LABS: Partial Thromboplastin Ratio 4.1
[2023-08-27] MEDS: traMADol HCL 50 MG TABLET PO SCH ×2 (08:38→20:53)
[2023-08-27] MEDS: GABAPENTIN 800 MG TAB PO SCH ×3 (08:38→21:26)
[2023-08-27] MEDS: FLUTICASONE/VILANTEROL 200/25MCG 14 PUFFS/INHALER INH SCH (08:38)
[2023-08-27] MEDS: METOPROLOL SUCC 50MG EXT REL TAB PO SCH (08:38)
[2023-08-27] MEDS: DULoxetine HCL 60 MG CAP PO SCH (08:38)
[2023-08-27] MEDS: ATORVASTATIN 10 MG TAB PO SCH (08:38)
[2023-08-27 08:45] LABS: Partial Thromboplastin Time 116.7 Seconds (21.0-31.0)
[2023-08-27] MEDS: CIPROFLOXACIN / D5W 400 MG/200 ML BAG IV SCH ×2 (10:45→21:23)
[2023-08-27 11:08] LABS: Appearance Urine Clear (Clear); Bilirubin Urine Negative (Negative); Blood Urine Negative (Negative); Color Urine Yellow; Glucose Urine UA Negative (Negative); Ketones Urine 1+ (Negative); Leukocyte Esterase Urine Negative (Negative); Nitrite Urine Negative (Negative); Protein Urine Negative (Negative); Specific Gravity Urine > 1.045 (1.000-1.030); Urobilinogen Urine Negative (Negative); pH Urine 5.5 (4.5-7.5)
--- NOTE | 2023-08-27 13:27 | Hospitalist Progress Note ---
Date of Service August 27, 2023 Assessment & Plan (1) Pulmonary embolism: Plan: Right upper lobe involvement. Currently on heparin drip. We will switch to either Xarelto or Eliquis tomorrow, August 28. No physical evidence of lower extremity DVT. (2) Acute respiratory failure with hypoxia: Plan: Oxygen per nasal cannula to keep saturation greater than 90%. Treat PE and pneumonia (3) Pneumonia: Plan: Bilateral lower lobe infiltrates probably of bacterial infectious etiology. She has now on parenteral Cipro therapy. (4) Enterovirus infection: Plan: Recently hospitalized for treatment. I doubt if this is playing a role in her current situation (5) Hyperlipidemia: Plan: Stable. Continue atorvastatin (6) Hypertension: Plan: Stable. Continue metoprolol (7) Chronic pain: Plan: Stable. Continue gabapentin, duloxetine, and tramadol (8) Stage III chronic kidney disease: Plan: Monitor intake and output. Serial labs Plan Anticipate discharge to home in 2 or 3 days. OT and PT assessments requested Admission and Anticipated Discharge Date Admission Date: August 26, 2023 Subjective Alert and oriented. is at the bedside. She was recently hospitalized for treatment for enteroviral infection. She now has evidence of right upper lobe pulmonary embolism and suspected bilateral lower lobe pneumonia of probable bacterial etiology. She is now on intravenous Cipro. She is requiring oxygen at 4 L/min. OT and PT assessments have been requested Review of Systems Review of Systems: Constitutional-no fever or chills ENT-no blurred vision, no double vision, no epistaxis, no sore throat Respiratory-nonproductive cough. Shortness of breath. She denies wheezing Cardiac-no palpitations, no chest pain, no syncope GI-no nausea, vomiting, diarrhea, melena, hematochezia -no urinary retention, no urinary incontinence, no dysuria, no hematuria Musculoskeletal-no joint pain, no muscle tenderness Skin-no bruising, no rashes, no pruritus Neuro-no isolated weakness, no paresthesia, no weakness Psych-no depression, no anxiety Physical Exam Physical Exam: General-alert and oriented x3, no fevers, no chills HEENT-head atraumatic and normocephalic, pupils equal and reactive to light, extraocular muscles intact Neck-no lymphadenopathy or thyromegaly, trachea midline Chest-bilateral rhonchi. No wheezing. No dullness to percussion Cardiac-regular rate and rhythm, normal S1 and S2 Abdomen-normal bowel sounds, nontender, no hepatosplenomegaly Extremities-no cyanosis, clubbing, or edema Neuro-cranial nerves II through XII intact, motor and sensory function within normal limits, strength symmetrical with generalized weakness, no focal deficits Psych-normal affect, normal mood Results & Data Results & Data Vital Signs (Past 12 Hours) Vital Signs Temp Pulse Pulse Pulse Resp BP BP 08/27/23 12:45 36.6 C 90 18 161/88 H 08/27/23 11:56 89 17 153/82 H 08/27/23 08:00 36.8 C 110 H 18 161/97 H 08/27/23 07:34 101 H 08/27/23 06:40 106 H 15 08/27/23 06:30 123 H 25 H 08/27/23 06:20 102 H 21 08/27/23 06:10 106 H 13 08/27/23 06:00 105 H 22 08/27/23 06:00 152/99 H 08/27/23 05:50 98 H 16 08/27/23 05:40 111 H 16 08/27/23 05:30 102 H 18 08/27/23 05:30 131/90 08/27/23 05:20 103 H 18 08/27/23 05:10 103 H 16 08/27/23 05:00 102 H 18 08/27/23 05:00 150/83 H 08/27/23 04:50 102 H 16 08/27/23 04:40 105 H 16 08/27/23 04:30 110 H 22 08/27/23 04:30 152/80 H 08/27/23 04:20 106 H 18 08/27/23 04:10 104 H 18 08/27/23 04:00 107 H 18 08/27/23 04:00 143/78 H 08/27/23 03:50 110 H 14 08/27/23 03:40 109 H 26 H 08/27/23 03:30 111 H 21 08/27/23 03:30 147/79 H 08/27/23 03:20 117 H 25 H 08/27/23 03:10 108 H 19 08/27/23 03:00 108 H 18 08/27/23 03:00 144/81 H 08/27/23 02:50 108 H 18 10/18/23 02:40 109 H 19 08/27/23 02:30 108 H 20 08/27/23 02:30 143/78 H 08/27/23 02:20 108 H 19 08/27/23 02:10 107 H 19 08/27/23 02:00 111 H 20 08/27/23 02:00 153/87 H 08/27/23 01:50 98 H 22 08/27/23 01:40 100 H 19 08/27/23 01:30 115 H 22 08/27/23 01:30 146/83 H Pulse Ox O2 Del Method O2 Flow Rate 08/27/23 12:45 98 Nasal Cannula 4 08/27/23 11:56 99 Nasal Cannula 4 08/27/23 08:00 97 Nasal Cannula 4 08/27/23 07:34 08/27/23 06:40 99 08/27/23 06:30 99 08/27/23 06:20 99 08/27/23 06:10 99 08/27/23 06:00 100 08/27/23 06:00 08/27/23 05:50 99 08/27/23 05:40 99 08/27/23 05:30 98 08/27/23 05:30 08/27/23 05:20 99 08/27/23 05:10 98 08/27/23 05:00 99 08/27/23 05:00 08/27/23 04:50 98 08/27/23 04:40 99 08/27/23 04:30 98 08/27/23 04:30 08/27/23 04:20 98 08/27/23 04:10 98 08/27/23 04:00 98 08/27/23 04:00 08/27/23 03:50 98 08/27/23 03:40 98 08/27/23 03:30 98 08/27/23 03:30 08/27/23 03:20 08/27/23 03:10 100 08/27/23 03:00 100 08/27/23 03:00 08/27/23 02:50 99 08/27/23 02:40 98 08/27/23 02:30 99 08/27/23 02:30 08/27/23 02:20 99 08/27/23 02:10 99 08/27/23 02:00 99 10/18/23 02:00 08/27/23 01:50 99 08/27/23 01:40 99 08/27/23 01:30 98 08/27/23 01:30 Laboratory Results 08/26/23 13:15 08/26/23 13:15 PG Care Time/CCT Total # of Minutes Spent Total Time Spent with Patient: Total time spent is greater than 50% in coordination of care (as documented) at patient's floor/unit and/or counseling patient: Coding Level of Care Code 56464 SUB INP/OBS CARE 3/50MIN Diagnoses Pulmonary embolism I26.99 Acute respiratory failure with hypoxia J96.01 Pneumonia J18.9 Enterovirus infection B34.1 Hyperlipidemia E78.5 Hypertension I10 Hypertension type: primary hypertension Chronic pain G89.29 Stage III chronic kidney disease N18.3 (6) Hypertension Hypertension type: primary hypertension Qualified Code(s): I10 - Essential (primary) hypertension
--- NOTE | 2023-08-27 15:21 | XCELERA ---
[id number]
[2023-08-27 18:03] LABS: Partial Thromboplastin Ratio 2.9
[2023-08-27] MEDS: HEPARIN SODIUM/DEXTROSE 25,000 UNITS/500 ML BAG IV SCH (23:37)
[2023-08-28 01:24] LABS: Partial Thromboplastin Ratio > 4.9
[2023-08-28 01:29] LABS: Partial Thromboplastin Time > 139.0 Seconds (21.0-31.0)
[2023-08-28 03:47] LABS: BUN Creatinine Ratio 18.2 (10-20); Calcium 8.9 mg/dl (8.6-10.3); Creatinine Clr Calc Pharmacy 45.3 ml/min; Est GFR (African American) 57.3 ml/min; Est GFR (Non-African American) 49.4 ml/min; Potassium 3.7 mmol/L (3.5-5.1)
[2023-08-28 04:22] LABS: Partial Thromboplastin Ratio 2.7
[2023-08-28 04:37] LABS: Basophils # (auto) 0.02 K/uL (0.00-0.20); Basophils % (auto) 0.2 %; Eosinophils # (auto) 0.03 K/uL (0.00-0.50); Eosinophils % (auto) 0.3 %; Hematocrit (blood only) 38.2 % (37.0-47.0); Hemoglobin 13.2 g/dl (12.0-16.0); Immature Granulocytes # (auto) 0.11 K/uL (0.01-0.20); Lymphocytes # (auto) 1.71 K/uL (1.20-3.40); Lymphocytes % (auto) 16.1 %; Mean Corpuscular Hemoglobin 32.5 pg (25.0-34.0); Mean Corpuscular Hgb Conc 34.6 g/dL (32.0-36.0); Mean Corpuscular Volume 94.1 fL (80.0-100.0); Mean Platelet Volume 9.6 fL (9.4-12.4); Monocytes # (auto) 0.67 K/uL (0.11-0.59); Monocytes % (auto) 6.3 %; Neutrophils # (auto) 8.09 K/uL (1.40-6.50); Neutrophils % (auto) 76.1 %; Platelet Count 247 K/uL (130-400); RDW Standard Deviation 42.1 fL (36.4-46.3); Red Blood Count 4.06 M/uL (4.20-5.40); White Blood Count 10.63 K/ul (4.8-10.8)
[2023-08-28 04:38] LABS: Partial Thromboplastin Time 75.8 Seconds (21.0-31.0)
[2023-08-28] MEDS: CIPROFLOXACIN / D5W 400 MG/200 ML BAG IV SCH (08:57)
[2023-08-28] MEDS: traMADol HCL 50 MG TABLET PO SCH ×2 (08:57→21:23)
[2023-08-28] MEDS: GABAPENTIN 800 MG TAB PO SCH ×3 (08:57→21:24)
[2023-08-28] MEDS: FLUTICASONE/VILANTEROL 200/25MCG 14 PUFFS/INHALER INH SCH (08:58)
[2023-08-28] MEDS: DULoxetine HCL 60 MG CAP PO SCH (09:35)
[2023-08-28] MEDS: PANTOprazole 40 MG TAB PO SCH (09:35)
[2023-08-28] MEDS: METOPROLOL SUCC 50MG EXT REL TAB PO SCH (09:35)
--- NOTE | 2023-08-28 09:39 | XRay Report ---
XR chest 1V portable HISTORY: 73 years-old Female questionable pneumonia COMPARISON: 08/26/2023 TECHNIQUE: AP view of the chest FINDINGS: Cardiac silhouette is unchanged. Dual lead left subclavian pacer. No pneumothorax, pleural effusion o r overt pulmonary edema. Mild linear subsegmental atelectasis versus scarring in the left lung base. Bones appear grossly intact. IMPRESSION: No acute process. ACT 112: Negative or not required by law. The above report was generated using voice recognition software. It may contain grammatical, syntax o r spelling errors. Electronically signed by: Braxton Roper M.D. 08/28/2023 9:38 AM
--- NOTE | 2023-08-28 10:48 | Ultrasound Report ---
ULTRASOUND BILATERAL LOWER EXTREMITY VENOUS CLINICAL HISTORY: Pulmonary embolus. COMPARISON STUDY: No priors TECHNIQUE: Real-time, grayscale, and color Doppler sonography of the deep veins of the right and left lower extremity was performed from the inguinal crease to the calf. Compression and augmentation wer e utilized. FINDINGS: There is no sonographic evidence of deep venous thrombosis identified in the right or left lower extremity. The common femoral, superficial femoral, and popliteal veins are patent and normally compressible bilaterally. The greater saphenous vein and the profunda femoris vein at the junction w ith the common femoral vein are clear in both legs. The visualized calf veins are patent bilaterally. IMPRESSION: There is no sonographic evidence of deep venous thrombosis identified in the right or lef t lower extremity. ACT 112: Negative or not required by law. Electronically signed by: Alex Hollis M.D. 08/28/2023 10:47 AM
[2023-08-28 11:59] LABS: Partial Thromboplastin Ratio 1.7
[2023-08-28 12:00] LABS: Partial Thromboplastin Time 47.8 Seconds (21.0-31.0)
--- NOTE | 2023-08-28 13:58 | Hospitalist Progress Note ---
Date of Service August 28, 2023 Assessment & Plan (1) Pulmonary embolism: Plan: Right upper lobe involvement. Currently on heparin drip. We will switch to either Xarelto or Eliquis at discharge. No physical evidence of lower extremity DVT. Venous Doppler studies are negative (2) Acute respiratory failure with hypoxia: Plan: Oxygen per nasal cannula to keep saturation greater than 90%. Treat PE (3) Pneumonia: Plan: Ruled out. Procalcitonin on admission was normal. Chest x-ray done today, August 28, is negative. Cipro has been discontinued. (4) Enterovirus infection: Plan: Recently hospitalized for treatment. I doubt if this is playing a role in her current situation (5) Hyperlipidemia: Plan: Stable. Continue atorvastatin (6) Hypertension: Plan: Stable. Continue metoprolol (7) Chronic pain: Plan: Stable. Continue gabapentin, duloxetine, and tramadol (8) Stage III chronic kidney disease: Plan: Monitor intake and output. Serial labs Plan Anticipate discharge to home tomorrow, August 29, on either Eliquis or Xarelto. She probably will need home oxygen for a while. She will need a two-step evaluation done tomorrow. Admission and Anticipated Discharge Date Admission Date: August 26, 2023 Subjective Alert and oriented. She is feeling better. Chest x-ray today is unremarkable. Procalcitonin on admission was normal. She does not have any clinical evidence of pneumonia. X-ray findings on the first admission chest x-ray were probably due to mild atelectasis. Cipro has been discontinued. She is still requiring some oxygen and will probably need oxygen at the time of discharge to home tomorrow, August 29. OT and PT assessments recommend discharge to home. Venous Doppler examination is negative for DVT. The is requesting a hospital bed at home. Case management is aware. Review of Systems Review of Systems: Constitutional-no fever or chills ENT-no blurred vision, no double vision, no epistaxis, no sore throat Respiratory-nonproductive cough. Shortness of breath. She denies wheezing Cardiac-no palpitations, no chest pain, no syncope GI-no nausea, vomiting, diarrhea, melena, hematochezia -no urinary retention, no urinary incontinence, no dysuria, no hematuria Musculoskeletal-no joint pain, no muscle tenderness Skin-no bruising, no rashes, no pruritus Neuro-no isolated weakness, no paresthesia, no weakness Psych-no depression, no anxiety Physical Exam Physical Exam: General-alert and oriented x3, no fevers, no chills HEENT-head atraumatic and normocephalic, pupils equal and reactive to light, extraocular muscles intact Neck-no lymphadenopathy or thyromegaly, trachea midline Chest-clear to auscultation and percussion. No wheezing. Cardiac-regular rate and rhythm, normal S1 and S2 Abdomen-normal bowel sounds, nontender, no hepatosplenomegaly Extremities-no cyanosis, clubbing, or edema Neuro-cranial nerves II through XII intact, motor and sensory function within normal limits, strength symmetrical with generalized weakness, no focal deficits Psych-normal affect, normal mood Results & Data Results & Data Vital Signs (Past 12 Hours) Vital Signs Temp Pulse Pulse Pulse Resp BP BP 08/28/23 12:07 36.4 C L 71 20 138/78 08/28/23 09:15 08/28/23 07:30 63 08/28/23 09:37 73 116/69 08/28/23 08:04 36.4 C L 75 18 135/74 08/28/23 02:17 36.7 C 75 18 138/75 Pulse Ox O2 Del Method O2 Flow Rate 08/28/23 12:07 97 Nasal Cannula 3 08/28/23 09:15 Nasal Cannula 4 08/28/23 07:30 08/28/23 09:37 08/28/23 08:04 95 Room Air, Nasal Cannula 3 08/28/23 02:17 99 Nasal Cannula 3 Laboratory Results 08/28/23 03:15 08/28/23 03:15 PG Care Time/CCT Total # of Minutes Spent Total Time Spent with Patient: Total time spent is greater than 50% in coordination of care (as documented) at patient's floor/unit and/or counseling patient: Coding Level of Care Code 63385 SUB INP/OBS CARE 3/50MIN Diagnoses Pulmonary embolism I26.99 Acute respiratory failure with hypoxia J96.01 Pneumonia J18.9 Enterovirus infection B34.1 Hyperlipidemia E78.5 Hypertension I10 Hypertension type: primary hypertension Chronic pain G89.29 Stage III chronic kidney disease N18.3 (6) Hypertension Hypertension type: primary hypertension Qualified Code(s): I10 - Essential (primary) hypertension
[2023-08-29 06:11] LABS: Basophils # (auto) 0.01 K/uL (0.00-0.20); Basophils % (auto) 0.1 %; Eosinophils # (auto) 0.13 K/uL (0.00-0.50); Eosinophils % (auto) 1.6 %; Hematocrit (blood only) 37.7 % (37.0-47.0); Immature Granulocytes # (auto) 0.06 K/uL (0.01-0.20); Immature Granulocytes % (auto) 0.7 %; Lymphocytes # (auto) 1.99 K/uL (1.20-3.40); Lymphocytes % (auto) 23.9 %; Mean Corpuscular Hemoglobin 32.3 pg (25.0-34.0); Mean Corpuscular Hgb Conc 34.5 g/dL (32.0-36.0); Mean Corpuscular Volume 93.5 fL (80.0-100.0); Mean Platelet Volume 9.8 fL (9.4-12.4); Monocytes # (auto) 0.47 K/uL (0.11-0.59); Monocytes % (auto) 5.6 %; Neutrophils # (auto) 5.66 K/uL (1.40-6.50); Neutrophils % (auto) 68.1 %; Platelet Count 211 K/uL (130-400); RDW Coefficient of Variation 11.9 % (11.5-14.5); RDW Standard Deviation 41.3 fL (36.4-46.3); Red Blood Count 4.03 M/uL (4.20-5.40); White Blood Count 8.32 K/ul (4.8-10.8)
[2023-08-29 06:17] LABS: BUN Creatinine Ratio 15.7 (10-20); Calcium 8.8 mg/dl (8.6-10.3); Creatinine Clr Calc Pharmacy 43.3 ml/min; Est GFR (African American) 54.3 ml/min; Est GFR (Non-African American) 46.8 ml/min; Potassium 3.4 mmol/L (3.5-5.1)
[2023-08-29] MEDS: ATORVASTATIN 10 MG TAB PO SCH (08:46)
[2023-08-29] MEDS: FLUTICASONE/VILANTEROL 200/25MCG 14 PUFFS/INHALER INH SCH (08:46)
[2023-08-29] MEDS: DULoxetine HCL 60 MG CAP PO SCH (08:46)
[2023-08-29] MEDS: METOPROLOL SUCC 50MG EXT REL TAB PO SCH (08:46)
[2023-08-29] MEDS: PANTOprazole 40 MG TAB PO SCH (08:46)
[2023-08-29] MEDS: GABAPENTIN 800 MG TAB PO SCH ×3 (08:46→20:33)
[2023-08-29] MEDS: traMADol HCL 50 MG TABLET PO SCH ×2 (08:49→20:32)
[2023-08-29] MEDS ORDERED: POTASSIUM CHLORIDE CRTAB 20 MEQ TABCR PO STA (13:32)
[2023-08-29] MEDS: HEPARIN SODIUM/DEXTROSE 25,000 UNITS/500 ML BAG IV SCH ×2 (20:31→20:32)
[2023-08-29] MEDS: ENOXAPARIN 80 MG/0.8 ML SYR SQ SCH (20:33)
[2023-08-29] MEDS ORDERED: HEPARIN STOP ORDER ONE (20:45)
[2023-08-29] MEDS ORDERED: ENOXAPARIN 1 MG/KG SQ SCH (21:00)
[2023-08-29] MEDS ORDERED: ENOXAPARIN 80 MG/0.8 ML SYR SQ SCH (21:00)
--- NOTE | 2023-08-29 22:30 | Hospitalist Progress Note ---
Date of Service August 29, 2023 Assessment & Plan (1) Pulmonary embolism: Plan: Right upper lobe involvement. Currently on heparin drip, switch to Lovenox tonight and to either Xarelto or Eliquis at discharge. No physical evidence of lower extremity DVT. Venous Doppler studies are negative. (2) Acute respiratory failure with hypoxia: Plan: Oxygen per nasal cannula to keep saturation greater than 90%. Treat PE (3) Pneumonia: Plan: Ruled out. Procalcitonin on admission was normal. Chest x-ray done today, August 28, is negative. Cipro has been discontinued. (4) Enterovirus infection: Plan: Recently hospitalized for treatment. I doubt if this is playing a role in her current situation (5) Hyperlipidemia: Plan: Stable. Continue atorvastatin (6) Hypertension: Plan: Stable. Continue metoprolol (7) Chronic pain: Plan: Stable. Continue gabapentin, duloxetine, and tramadol The patient requires positioning of the body in ways not feasible with an ordinary bed in order to alleviate pain with the need for frequent changes in body position or the need for and immediate change in body position. (8) Stage III chronic kidney disease: Plan: Monitor intake and output. Serial labs Plan VTE Prophylaxis - switch IV heparin to lovenox Diet - regular Disposition - continue on med/tele Admission and Anticipated Discharge Date Admission Date: August 26, 2023 Subjective Continues with minimal improvement daily. smokes therefore suspect she may have some deterioration in her lung function on discharge in her home environment. Currently on 1.5 O2 LPM at rest. No oxygen at baseline but she does have oxygen at home from last admission. PT/OT recommending home health. Pt requesting hospital bed due to chronic pain and limited movement with her current shortness of breath. Review of Systems Review of Systems: All systems reviewed & are unremarkable except as noted in HPI & below Physical Exam Constitutional: WD/WN, vitals as above Respiratory: normal respiratory effort; no respiratory distress Auscultation: + diminished lung sounds (throughout); no crackles Cardiovascular: RRR, no murmur, no edema Gastrointestinal (Abdomen): normal bowel sounds, soft, nontender, no hepatosplenomegaly Results & Data Results & Data Vital Signs (Past 12 Hours) Vital Signs Temp Pulse Pulse Resp BP BP Pulse Ox 08/29/23 19:43 36.6 C 78 20 103/48 L 96 08/29/23 15:33 76 08/29/23 15:23 36.6 C 75 20 105/69 91 08/29/23 11:53 36.3 C L 69 20 115/69 99 O2 Del Method O2 Flow Rate 08/29/23 19:43 Room Air 08/29/23 15:33 08/29/23 15:23 Room Air 08/29/23 11:53 Nasal Cannula 2 PG Care Time/CCT Total # of Minutes Spent Total Time Spent with Patient: Total time spent is greater than 50% in coordination of care (as documented) at patient's floor/unit and/or counseling patient: Coding Level of Care Code 84455 SUB INP/OBS CARE 2/35MIN Diagnoses Pulmonary embolism I26.99 Acute respiratory failure with hypoxia J96.01 Pneumonia J18.9 Enterovirus infection B34.1 Hyperlipidemia E78.5 Hypertension I10 Hypertension type: primary hypertension Chronic pain G89.29 Stage III chronic kidney disease N18.3 (6) Hypertension Hypertension type: primary hypertension Qualified Code(s): I10 - Essential (primary) hypertension
[2023-08-30 05:26] LABS: Basophils # (auto) 0.01 K/uL (0.00-0.20); Basophils % (auto) 0.1 %; Eosinophils # (auto) 0.12 K/uL (0.00-0.50); Eosinophils % (auto) 1.5 %; Hematocrit (blood only) 33.8 % (37.0-47.0); Hemoglobin 11.8 g/dl (12.0-16.0); Immature Granulocytes # (auto) 0.06 K/uL (0.01-0.20); Immature Granulocytes % (auto) 0.8 %; Lymphocytes # (auto) 2.36 K/uL (1.20-3.40); Lymphocytes % (auto) 30.4 %; Mean Corpuscular Hemoglobin 32.5 pg (25.0-34.0); Mean Corpuscular Hgb Conc 34.9 g/dL (32.0-36.0); Mean Corpuscular Volume 93.1 fL (80.0-100.0); Mean Platelet Volume 10.2 fL (9.4-12.4); Monocytes # (auto) 0.47 K/uL (0.11-0.59); Neutrophils # (auto) 4.75 K/uL (1.40-6.50); Neutrophils % (auto) 61.2 %; Platelet Count 213 K/uL (130-400); RDW Coefficient of Variation 11.8 % (11.5-14.5); RDW Standard Deviation 40.1 fL (36.4-46.3); Red Blood Count 3.63 M/uL (4.20-5.40); White Blood Count 7.77 K/ul (4.8-10.8)
[2023-08-30 05:43] LABS: BUN Creatinine Ratio 12.4 (10-20); Calcium 8.7 mg/dl (8.6-10.3); Creatinine Clr Calc Pharmacy 36.3 ml/min; Est GFR (African American) 43.9 ml/min; Est GFR (Non-African American) 37.9 ml/min; Potassium 3.8 mmol/L (3.5-5.1)
[2023-08-30] MEDS: DULoxetine HCL 60 MG CAP PO SCH (08:23)
[2023-08-30] MEDS: GABAPENTIN 800 MG TAB PO SCH (08:23)
[2023-08-30] MEDS: METOPROLOL SUCC 50MG EXT REL TAB PO SCH (08:23)
[2023-08-30] MEDS: FLUTICASONE/VILANTEROL 200/25MCG 14 PUFFS/INHALER INH SCH (08:24)
[2023-08-30] MEDS: traMADol HCL 50 MG TABLET PO SCH (08:24)
[2023-08-30] MEDS: ENOXAPARIN 80 MG/0.8 ML SYR SQ SCH (08:24)
[2023-08-30] MEDS: PANTOprazole 40 MG TAB PO SCH (08:24)
--- NOTE | 2023-08-30 11:33 | Discharge Summary ---
Date of Service August 30, 2023 Admission HPI Per Admitting Provider Caitlin is a 73yo female with PMHx of bradycardia s/p pacer, HLD, HTN, migraine, insomnia, and CKD stage III. She returns with worsening SOB after recent discharge with enterovirus on 08/24 from [facility]. Patient reports she was feeling fine at time of discharge on Friday 08/24, but breathing declined acutely at home. Her (Leo) is present at the bedside and provides additional history. Patient was discharged on supplemental oxygen therapy (1 L at rest, 3 L while walking), but symptoms did not improve. Normally, she does not use oxygen at home. Current SOB at rest; it is positional (better when s itting up). She endorses generalized weakness, chest heaviness, and reports she has not been eating much; only some chicken broth. Patient denies PMH of COPD, asthma, or prior DVT/PE. She further denies history of blood thinner use, issues with blood thinners, or low platelets. Former smoker; quit >50 years ago. Vitals: patient's SpO2 at 96% on 6 L non-rebreather; tachycardic in 120s; hypertensive at 173/97. ED course: Albuterol DuoNeb, Solu-Medrol 60 mg IV ROS: She further endorses sweating, dry cough, and numbness / tingling in the legs (which is chronic). She denies fevers, chills, CP, abdominal pain, or swelling in legs. Discharge Data Allergies Allergy/AdvReac Type Severity Reaction Status Date / Time Penicillins Allergy Intermediate HIVES Verified 08/22/23 00:04 codeine Allergy Unknown BLOOD Verified 08/22/23 00:04 PRESSURE DROPS morphine Allergy Unknown HYPOTENSION Verified 08/22/23 00:04 Consultations 08/26/23 14:53 ED Decision to Admit Stat Ordered Studies 08/26/23 16:58 CT angio chest PE protocol Stat 08/28/23 09:09 US venous doppler [facility] Urgent Hospital Course (1) Pulmonary embolism: Right upper lobe involvement. Currently on heparin drip, switch to Lovenox tonight and to either Xarelto or Eliquis at discharge. No physical evidence of lower extremity DVT. Venous Doppler studies are negative. (2) Acute respiratory failure with hypoxia: Oxygen per nasal cannula to keep saturation greater than 90%. Treat PE (3) Pneumonia: Ruled out. Procalcitonin on admission was normal. Chest x-ray done today, August 28, is negative. Cipro has been discontinued. (4) Enterovirus infection: Recently hospitalized for treatment. I doubt if this is playing a role in her current situation (5) Hyperlipidemia: Stable. Continue atorvastatin (6) Hypertension: Stable. Continue metoprolol (7) Chronic pain: Stable. Continue gabapentin, duloxetine, and tramadol The patient requires positioning of the body in ways not feasible with an ordinary bed in order to alleviate pain with the need for frequent changes in body position or the need for and immediate change in body position. (8) Stage III chronic kidney disease: Monitor intake and output. Serial labs Plan VTE Prophylaxis - switch IV heparin to lovenox Diet - regular Disposition - continue on med/tele Discharge Plan Discharge Items Patient Disposition: Home - Home Health Services Reason For Visit: SOB Discharge Diagnosis: Pulmonary embolism Activity: Resume your previous activity Non-emergency contact: Primary Care Provider Call non-emergency contact if: you have any medication questions and your symptoms worsen Follow-up/Referrals: Shanel Mendiola MD [Primary Care Provider] - 09/05/23 10:30 am Diet: Regular Addtl Attending Provider Instructions: You were admitted to [facility] from August 26 - 2022. You were diagnosed with acute pulmonary embolism. This was treated with intravenous heparin, then Lovenox injections and you will be switched to Xarelto on discharge. Please follow up with your primary care physician for ongoing prescriptions of this. Hospital bed will be delivered Friday. Home health has also been arranged for you on discharge. Please continue to use oxygen 2LPM just on exertion. Pending Studies at Discharge: No Stand-Alone Forms: [facility], Smoking Cessation Medications and DC Order Prescriptions: New Xarelto DVT-PE Treat 30d Start 15 mg (42)- 20 mg (9) tablets,dose pack See Rx Instructions .ROUTE .COMPLEX Qty: 51 0RF Rx Instructions: take one-15 mg tablet twice daily for 21 days, then one-20 mg tablet once daily; must take with meal/food Continued omeprazole 20 mg capsule,delayed release(DR/EC) 20 mg PO DAILY Qty: 90 3RF duloxetine 60 mg capsule,delayed release(DR/EC) 60 mg PO DAILY 90 Days Qty: 90 1RF sumatriptan succinate 50 mg tablet See Rx Instructions PO .COMPLEX Qty: 16 5RF Dose Instruction: take 1 tab at onset of headache; if no relief may repeat 1 tab in 2hr; max = 4 tabs/day (24hr) PO Rx Instructions: take 1 tab at onset of headache; if no relief may repeat 1 tab in 2hr; max = 4 tabs/day (24hr) PO trimethoprim 100 mg tablet 100 mg PO QPM Qty: 90 3RF Hold Instructions: Resume on 08/27/23. multivitamin [Daily Multi-Vitamin] Tablet 1 tab PO DAILY atorvastatin 10 mg tablet 10 mg PO [id number] Rx Instructions: 10 mg orally Friday/Friday/Friday; metoprolol succinate 100 mg tablet extended release 24 hr 150 mg PO DAILY Rx Instructions: Take 1 and 1/2 tablets by mouth every day tramadol 50 mg tablet 50 mg PO BID gabapentin 800 mg tablet 800 mg PO TID Rx Instructions: TAKE 1 TABLET BY MOUTH THREE TIMES A DAY prednisone 10 mg tablet 10 mg PO DIRECTED Qty: 40 0RF Rx Instructions: 4 a day x 4 d>3 a day x 4 d>2 a day x 4 d>1 a day fluticasone propion-salmeterol [Advair Diskus] 250-50 mcg/dose blister with device 1 inh inhalation BID Qty: 60 1RF (DME) Oxygen Home Liters Per Minute See Rx Instructions .Route Qty: 3 0RF Rx Instructions: As directed Discharge Orders: Discharge Order (Routine); Ordered 08/30/23 Ordered By: Herbert Chisholm Admission Data Admit Date/Time: 08/26/23 16:04 Attending Provider: Herbert Chisholm Admit Provider: Owen Juarez Primary Care Provider: Shanel Mendiola V. Other Providers: Owen Juarez ; Javier Junior [facility] Coding Diagnoses Pulmonary embolism I26.99 Acute respiratory failure with hypoxia J96.01 Pneumonia J18.9 Enterovirus infection B34.1 Hyperlipidemia E78.5 Hypertension I10 Hypertension type: primary hypertension Chronic pain G89.29 Stage III chronic kidney disease N18.3
== END 2023-08-30 12:28 | disposition home health service (06) | DRG 175 ==
LOC: ED 12:45 → SUATTDRO 16:04 → EDINP 16:04 → 2W 18:21

== ENCOUNTER 2024-08-29 11:03 | Inpatient (IN) ==
--- NOTE | 2024-08-29 11:32 | Emergency Department Note ---
History of Present Illness General Chief Complaint: Shortness of Breath/Dyspnea Time Seen by Provider: 08/29/24 11:15 History of Present Illness Provider Complaint: shortness of breath and cough Onset (ago): day(s) (2) Consistency/Duration: + progressively worsening Relieved By: + nothing Exacerbated By: + coughing Known history of: other (Extensive history of secondhand smoke.) Associated symptoms: + cough, + wheezing and + chest congestion; no fever, no sputum production, no palpitations, no hemoptysis, no nausea/vomiting, no abdominal pain or no rash Home Medications Medication Instructions Recorded Confirmed Type sumatriptan succinate 50 mg tablet See Rx Instructions PO .COMPLEX 12/19/22 08/18/24 Rx #16 tabs omeprazole 20 mg capsule,delayed 20 mg PO DAILY #90 caps 09/22/23 08/18/24 Rx release mirtazapine 30 mg tablet 15 mg PO DAILY 02/11/24 08/18/24 History venlafaxine 150 mg 150 mg PO DAILY 02/11/24 08/18/24 History capsule,extended release 24 hr (Effexor XR) gabapentin 800 mg tablet See Rx Instructions .Route 02/17/24 08/18/24 Rx .COMPLEX #270 tabs metoprolol succinate 50 mg 50 mg PO DAILY #90 tabs 02/25/24 08/18/24 Rx tablet,extended release 24 hr tizanidine 4 mg tablet 4 mg PO Q8H PRN muscle spasticity 05/10/24 08/18/24 Rx #30 tabs trimethoprim 100 mg tablet 100 mg PO QPM #90 tabs 06/28/24 08/18/24 Rx ciprofloxacin HCl 250 mg tablet 250 mg PO BID #10 tabs 08/20/24 Rx hydrochlorothiazide 25 mg tablet 25 mg PO DAILY #30 tabs 08/20/24 Rx Allergies Allergy/AdvReac Type Severity Reaction Status Date / Time Penicillins Allergy Intermediate HIVES Verified 08/18/24 15:46 codeine Allergy Unknown BLOOD Verified 08/18/24 15:46 PRESSURE DROPS morphine Allergy Unknown HYPOTENSION Verified 08/18/24 15:46 Past Med/Surg History Problem List (Updated 08/29/24 @ 14:35 by Damian Leal MD) Hypoxia (Acute) Right carotid bruit Localized swelling of both lower legs Depression Obstructive airway disease Abnormal chest CT Pulmonary embolism Chronic pain Hypoxia (Acute) COPD (chronic obstructive pulmonary disease) SOB (shortness of breath) (Acute) Hyperglycemia Intermittent palpitations S/P placement of cardiac pacemaker (Acute 06/06/11) Generator change-out 09/17/22 Encounter for health maintenance examination Peripheral neuropathy (Chronic) Balance problem (Acute) Cerebrovascular disease (Acute) Gait disturbance (Acute) Hyperlipidemia (Acute) Hypertension (Acute) Insomnia (Acute) Low back pain (Acute) Migraine (Chronic) Osteoporosis (Acute) Polyneuropathy (Chronic) Presence of cardiac pacemaker (Acute) Stage III chronic kidney disease (Acute) Vitamin B12 deficiency (Acute) Vitamin D deficiency (Acute) Medical History Thrush Pneumonia Acute respiratory failure with hypoxia Viral URI Shortness of breath Enterovirus infection Chest congestion Chest pain Right sided abdominal pain Pacemaker at end of battery life SSS (sick sinus syndrome) Parkinsonism Hypoxia Atrial fibrillation Surgical History S/P cardiac pacemaker procedure History of back surgery Family History Mother Hypertension Father Hypertension Family/Other Heart disease Denies family history of Colon cancer Ovarian cancer Prostate cancer Chronic kidney disease Myocardial infarction Breast cancer Social History Smoking Status: Never smoker Tobacco Type: Cigarettes Age Started Using Tobacco: 24; Age Quit Using Tobacco: 27; packs per day: 0.5; Hx Alcohol Use: No Hx Substance Use: No Preferred Language: Kazakh Communication Ability: Effective Visual Impairment: No Limitations Hearing Ability: Normal Drum Carrier Required: No Beliefs That Will Affect Care: None marital status: Current Living Situation: Spouse current occupational status: retired Feels Safe at Home: Yes Childhood Exposure to Second-Hand Smoke: Yes Dental Care, Regularly: No Physical Activity Frequency: Does not Exercise Seatbelt Use: always Sunscreen Use: No Assistive Devices: Oxygen - Continuous Physical Exam 2 Vital Signs: Vital Signs - 24 hr 08/29/24 11:14 08/29/24 11:14 08/29/24 11:18 Temperature 36.5 C Temperature Source Temporal Artery Sc an Pulse Rate 112 H 111 H Pulse Rate [Left A pical] Respiratory Rate 20 Respiratory Effort / Characteristics Respiratory Depth Normal Respiratory Patter n Blood Pressure 160/121 H Blood Pressure [Le ft Arm] Blood Pressure Ailyn n 134 Blood Pressure Ailyn n [Left Arm] Pulse Oximetry 95 95 Oxygen Delivery Me thod Room Air Room Air Oxygen Flow Rate Sepsis Recent Feve r Within 48 Hours No Sepsis New/Unexpla ined Change in Men rome Status No Sepsis Action Take n by Nursing No Action Required Oxygen Flow Rate - Titration Pulse Oximetry Pos t Tiitration 08/29/24 11:20 08/29/24 11:24 08/29/24 11:30 Temperature Temperature Source Pulse Rate 119 H 108 H Pulse Rate [Left A pical] Respiratory Rate 19 21 Respiratory Effort / Characteristics Respiratory Depth Respiratory Patter n Blood Pressure Blood Pressure [Le ft Arm] Blood Pressure Ailyn n Blood Pressure Ailyn n [Left Arm] Pulse Oximetry 93 Oxygen Delivery Me thod Room Air Room Air Oxygen Flow Rate Sepsis Recent Feve r Within 48 Hours Sepsis New/Unexpla ined Change in Men rome Status Sepsis Action Take n by Nursing Oxygen Flow Rate - Titration Pulse Oximetry Pos t Tiitration 08/29/24 11:43 08/29/24 11:45 08/29/24 11:51 Temperature Temperature Source Pulse Rate 95 H 113 H Pulse Rate [Left A pical] Respiratory Rate 15 20 Respiratory Effort / Characteristics Respiratory Depth Respiratory Patter n Blood Pressure 152/92 H Blood Pressure [Le ft Arm] Blood Pressure Ailyn n 117 Blood Pressure Ailyn n [Left Arm] Pulse Oximetry 98 97 Oxygen Delivery Me thod Nebulizer Nebulizer Oxygen Flow Rate Sepsis Recent Feve r Within 48 Hours Sepsis New/Unexpla ined Change in Men rome Status Sepsis Action Take n by Nursing Oxygen Flow Rate - Titration Pulse Oximetry Pos t Tiitration 08/29/24 12:25 08/29/24 13:09 08/29/24 13:12 Temperature Temperature Source Pulse Rate 115 H 107 H Pulse Rate [Left A pical] 111 H Respiratory Rate 20 19 18 Respiratory Effort / Characteristics Spontaneous Short of Breath Respiratory Depth Normal Respiratory Patter n Regular Blood Pressure 171/92 H Blood Pressure [Le ft Arm] 173/99 H Blood Pressure Ailyn n 118 Blood Pressure Ailyn n [Left Arm] 123 Pulse Oximetry 92 97 94 Oxygen Delivery Me thod Room Air Room Air Nebulizer Oxygen Flow Rate Sepsis Recent Feve r Within 48 Hours Sepsis New/Unexpla ined Change in Men rome Status Sepsis Action Take n by Nursing Oxygen Flow Rate - Titration Pulse Oximetry Pos t Tiitration 08/29/24 13:24 08/29/24 13:30 08/29/24 13:45 Temperature Temperature Source Pulse Rate 106 H 113 H 120 H Pulse Rate [Left A pical] Respiratory Rate 12 14 12 Respiratory Effort / Characteristics Respiratory Depth Respiratory Patter n Blood Pressure 176/91 H Blood Pressure [Le ft Arm] Blood Pressure Ailyn n 119 Blood Pressure Ailyn n [Left Arm] Pulse Oximetry 98 97 91 Oxygen Delivery Me thod Nebulizer Nebulizer Room Air Oxygen Flow Rate Sepsis Recent Feve r Within 48 Hours Sepsis New/Unexpla ined Change in Men rome Status Sepsis Action Take n by Nursing Oxygen Flow Rate - Titration Pulse Oximetry Pos t Tiitration 08/29/24 13:53 Temperature Temperature Source Pulse Rate Pulse Rate [Left A pical] Respiratory Rate Respiratory Effort / Characteristics Respiratory Depth Respiratory Patter n Blood Pressure Blood Pressure [Le ft Arm] Blood Pressure Ailyn n Blood Pressure Ailyn n [Left Arm] Pulse Oximetry 88 L Oxygen Delivery Me thod Nasal Cannula Oxygen Flow Rate 0 Sepsis Recent Feve r Within 48 Hours Sepsis New/Unexpla ined Change in Men rome Status Sepsis Action Take n by Nursing Oxygen Flow Rate - Titration 2 Pulse Oximetry Pos t Tiitration 91 Physical Exam: Physical Exam GENERAL: oriented to person, place, and time. appears well-developed and well- nourished. HENT: Exam performed. - Head: Normocephalic and atraumatic. EYES: Conjunctivae and EOM are normal. Right eye exhibits no discharge. Left eye exhibits no discharge. No scleral icterus. NECK: Normal range of motion. Neck supple. No JVD present. CV: Tachycardic rate, regular rhythm, normal heart sounds and intact distal pulses. There is no peripheral edema. Palpable radial pulses bue. PULM/CHEST: Expiratory wheezes bilaterally. Rhonchi bilaterally. ABD: The abdomen is soft. There is no tenderness. NEURO: Motor and sensation grossly intact. SKIN: Skin is warm and dry. He is not diaphoretic. PSYCH: normal mood and affect. Behavior is normal. Judgment and thought content normal. Course Course 1115: The patient was evaluated in room C3. A complete history and physical exam was performed Cardiac monitoring: An order was placed for continuous cardiac monitoring. The monitor shows a rate of 110 with sinus tachycardia rhythm interpreted by me 1350: Status post 3 DuoNebs the patient was having increasing wheezing. After ambulation to the bathroom patient's oxygen saturation dipped down to 88%. Patient placed on supplemental oxygen via nasal cannula which improved her oxygen saturations. Labs and imaging are unremarkable. Patient treated with DuoNebs, oral steroids, and first dose of azithromycin. Patient will be admitted to the [facility] team. Administered Medications Discontinued Medications Albuterol (Albut/Ipratrop 3mg/0.5mg Neb 3 Ml Vial) 3 ml NEB NOW STA; Protocol Stop: 08/29/24 11:24 Last Admin: 08/29/24 11:40 Dose: 3 ml Documented By: [facility] Albuterol (Albut/Ipratrop 3mg/0.5mg Neb 3 Ml Vial) 3 ml NEB NOW STA; Protocol Stop: 08/29/24 11:27 Last Admin: 08/29/24 11:41 Dose: 3 ml Documented By: [facility] Albuterol (Albut/Ipratrop 3mg/0.5mg Neb 3 Ml Vial) 3 ml NEB NOW STA; Protocol Stop: 08/29/24 13:14 Last Admin: 08/29/24 13:16 Dose: 3 ml Documented By: [facility] Azithromycin (Azithromycin 250 Mg Tab) 500 mg PO NOW ONE Stop: 08/29/24 13:14 Last Admin: 08/29/24 13:16 Dose: 500 mg Documented By: [facility] Prednisone (Prednisone 50 Mg Tab) 50 mg PO NOW STA Stop: 08/29/24 11:24 Last Admin: 08/29/24 11:38 Dose: 50 mg Documented By: [facility] Medical Decision Making Laboratory Data Attestation: I reviewed the patient's lab results. 08/29/24 11:30 08/29/24 11:30 Lab Results 08/29/24 08/29/24 08/29/24 Range/Units 11:29 11:30 11:33 WBC 4.31 L (4.8-10.8) K/ul RBC 4.54 (4.20-5.40) M/uL Hgb 14.2 (12.0-16.0) g/dl POC Hgb 13.9 (12.0-16.0) g/dl Hct 41.3 (37.0-47.0) % POC Hct 41 (37-47) % MCV 91.0 (80.0-100.0) fL MCH 31.3 (25.0-34.0) pg MCHC 34.4 (32.0-36.0) g/dL RDW Std Deviation 40.7 (36.4-46.3) fL RDW Coeff of Saskia 12.2 (11.5-14.5) % Plt Count 198 (130-400) K/uL MPV 9.1 L (9.4-12.4) fL Immature Gran % (Auto) 0.2 % Neut % (Auto) 78.3 % Lymph % (Auto) 13.9 % [place] % (Auto) 7.4 % Eos % (Auto) 0.0 % Baso % (Auto) 0.2 % Neut # (Auto) 3.37 (1.40-6.50) K/uL Lymph # (Auto) 0.60 L (1.20-3.40) K/uL [place] # (Auto) 0.32 (0.11-0.59) K/uL Eos # (Auto) 0.00 (0.00-0.50) K/uL Baso # (Auto) 0.01 (0.00-0.20) K/uL Immature Gran # (Auto) 0.01 (0.01-0.20) K/uL VBG pH 7.45 H (7.36-7.41) VBG pCO2 49 (38-50) mmHg VBG pO2 28 mmHg VBG HCO3 34 mmol/L VBG O2 Saturation < 60.0 % VBG Base Excess 8.5 mEq/L POC Sodium 136 (135-144) mmol/L Sodium 140 (136-145) mmol/L POC Potassium 5.0 (3.3-5.0) mmol/L Potassium 4.2 (3.5-5.1) mmol/L POC Chloride 99 L (101-112) mmol/L Chloride 99 (98-107) mmol/L Carbon Dioxide 30 (21-32) mmol/L POC Total CO2 27 (24-31) mmol/L Anion Gap 11 (3-11) POC Anion Gap 16.0 (16-25) mmol/L POC BUN 17 (7-18) mg/dl BUN 14 (6-23) mg/dl Creatinine 1.25 H (0.6-1.2) mg/dl POC Creatinine 1.4 H (0.6-1.3) mg/dl Est Cr Clr Drug Dosing 45.2 ml/min eGFR 44.95 BUN/Creatinine Ratio 11.2 (10-20) Glucose 120 H (70-99(Fasting)) mg/dl POC Glucose (other) 119 H (70-99) mg/dl Calcium 9.7 (8.6-10.3) mg/dl POC Ioniz Calcium Andrew 1.06 L (1.12-1.32) mmol/l SARS-CoV-2 (PCR) NEGATIVE (Negative) Influenza Type A (PCR) Negative (Neg) Influenza Type B (PCR) Negative (Neg) RSV (RT-PCR) Negative (Neg) Imaging Data Attestation: I personally reviewed and interpreted this imaging study as follows: My Impression: Chest x-ray negative. Airway clear. No pneumothorax. No consolidation. No cardiomegaly or cephalization.. No free air under the diaphragm. No fractures of the skeletal structures. Radiologist's Impression: Chest X-Ray 08/29/24 11:25 XR chest 2V PA/lateral CLINICAL HISTORY: sob TECHNIQUE: 2 views of the chest were obtained. Comparison: Comparison is made to chest radiograph 08/18/2024 FINDINGS: An implanted pacemaker is seen. The cardiomediastinal silhouette is normal. The lungs are clear. No evidence of pleural effusion or pneumothorax. IMPRESSION: No acute abnormalities and in particular no radiographic evidence of pneumonia. ACT 112: Negative or not required by law. Electronically signed by: Ted Galvan M.D. 08/29/2024 12:50 PM ECG Data Attestation: I personally reviewed and interpreted this ECG as follows: Interpretation: Sinus tachycardia with a rate of 110. AR QRS and QTc intervals within normal limits. No ST elevation or ST depression. MDM Narrative 1115: The patient was evaluated in room C3. A complete history and physical exam was performed Cardiac monitoring: An order was placed for continuous cardiac monitoring. The monitor shows a rate of 110 with sinus tachycardia rhythm interpreted by me 1350: Status post 3 DuoNebs the patient was having increasing wheezing. After ambulation to the bathroom patient's oxygen saturation dipped down to 88%. Patient placed on supplemental oxygen via nasal cannula which improved her oxygen saturations. Labs and imaging are unremarkable. Patient treated with DuoNebs, oral steroids, and first dose of azithromycin. Patient will be admitted to the [facility] hospitalist team. Impression & Plan Hypoxia Critical Care Time Critical Care Time: Yes Total Critical Care Time: 36 I have personally spent greater than 36 minutes of critical care time in the direct management of this patient. This includes bedside care, interpretation of diagnostic studies, and testing, discussion with consultants, patient, and family members, and other required patient management activities. This 36 minutes is in excess of all separately billable procedures. Discharge Plan Visit Data Chief Complaint: Shortness of Breath/Dyspnea ED Provider: Damian Leal Discharge Problem: Hypoxia Patient Disposition: Being Evaluated by Hospitalist Forms Stand Alone Forms: My [facility] Prescriptions Prescriptions: No Action sumatriptan succinate 50 mg tablet See Rx Instructions PO .COMPLEX Qty: 16 5RF Dose Instruction: take 1 tab at onset of headache; if no relief may repeat 1 tab in 2hr; max = 4 tabs/day (24hr) PO Rx Instructions: take 1 tab at onset of headache; if no relief may repeat 1 tab in 2hr; max = 4 tabs/day (24hr) PO omeprazole 20 mg capsule,delayed release(DR/EC) 20 mg PO DAILY Qty: 90 3RF gabapentin 800 mg tablet See Rx Instructions .ROUTE .COMPLEX Qty: 270 1RF Dose Instruction: TAKE 1 TABLET BY MOUTH THREE TIMES A DAY Rx Instructions: TAKE 1 TABLET BY MOUTH THREE TIMES A DAY metoprolol succinate 50 mg tablet extended release 24 hr 50 mg PO DAILY Qty: 90 3RF trimethoprim 100 mg tablet 100 mg PO QPM Qty: 90 3RF Hold Instructions: Resume on 08/27/23. hydrochlorothiazide 25 mg tablet 25 mg PO DAILY Qty: 30 1RF ciprofloxacin HCl 250 mg tablet 250 mg PO BID Qty: 10 0RF tizanidine 4 mg tablet 4 mg PO Q8H PRN (Reason: muscle spasticity) Qty: 30 1RF mirtazapine 30 mg tablet 15 mg PO DAILY venlafaxine [Effexor XR] 150 mg capsule,extended release 24hr 150 mg PO DAILY Referrals Referrals: Shanel Mendiola MD [Primary Care Provider] -
[2024-08-29] MEDS: predniSONE 50 MG TAB PO STA (11:38)
[2024-08-29] MEDS: ALBUT/IPRATROP 3MG/0.5MG NEB 3 ML VIAL NEB STA ×3 (11:40→13:16)
[2024-08-29 11:41] LABS: Base Excess VBG 8.5 mEq/L; HCO3 VBG 34 mmol/L; Oxygen Saturation VBG < 60.0 %; PCO2 VBG 49 mmHg (38-50); PO2 VBG 28 mmHg; pH VBG 7.45 (7.36-7.41)
[2024-08-29 11:41] LABS: iSTAT Creatinine 1.4 mg/dl (0.6-1.3); iSTAT Hemoglobin 13.9 g/dl (12.0-16.0); iSTAT Ionized Calcium 1.06 mmol/l (1.12-1.32)
[2024-08-29 11:59] LABS: Basophils # (auto) 0.01 K/uL (0.00-0.20); Basophils % (auto) 0.2 %; Hematocrit (blood only) 41.3 % (37.0-47.0); Hemoglobin 14.2 g/dl (12.0-16.0); Immature Granulocytes # (auto) 0.01 K/uL (0.01-0.20); Immature Granulocytes % (auto) 0.2 %; Lymphocytes % (auto) 13.9 %; Mean Corpuscular Hemoglobin 31.3 pg (25.0-34.0); Mean Corpuscular Hgb Conc 34.4 g/dL (32.0-36.0); Mean Platelet Volume 9.1 fL (9.4-12.4); Monocytes # (auto) 0.32 K/uL (0.11-0.59); Monocytes % (auto) 7.4 %; Neutrophils # (auto) 3.37 K/uL (1.40-6.50); Neutrophils % (auto) 78.3 %; Platelet Count 198 K/uL (130-400); RDW Coefficient of Variation 12.2 % (11.5-14.5); RDW Standard Deviation 40.7 fL (36.4-46.3); Red Blood Count 4.54 M/uL (4.20-5.40); White Blood Count 4.31 K/ul (4.8-10.8)
[2024-08-29 12:01] LABS: BUN Creatinine Ratio 11.2 (10-20); Calcium 9.7 mg/dl (8.6-10.3); Creatinine Clr Calc Pharmacy 45.2 ml/min; Potassium 4.2 mmol/L (3.5-5.1)
[2024-08-29 12:18] LABS: Influenza A virus by PCR Negative (Neg); Influenza B virus by PCR Negative (Neg); RSV by PCR Negative (Neg); SARS CoV2 RNA(COVID-19) Ceph NEGATIVE (Negative)
--- NOTE | 2024-08-29 12:52 | XRay Report ---
XR chest 2V PA/lateral CLINICAL HISTORY: sob TECHNIQUE: 2 views of the chest were obtained. Comparison: Comparison is made to chest radiograph 08/18/2024 FINDINGS: An implanted pacemaker is seen. The cardiomediastinal silhouette is normal. The lungs are clear. No e vidence of pleural effusion or pneumothorax. IMPRESSION: No acute abnormalities and in particular no radiographic evidence of pneumonia. ACT 112: Negative or not required by law. Electronically signed by: Ted Galvan M.D. 08/29/2024 12:50 PM
[2024-08-29] MEDS: AZITHROMYCIN 250 MG TAB PO ONE (13:16)
--- NOTE | 2024-08-29 14:53 | History & Physical Report ---
Date of Service August 29, 2024 Assessment & Plan (1) Hypoxia: Plan: COVID, influenza, RSV negative Will check BioFire for upper respiratory viral illness Prior history of supplemental oxygen required with history of PE. She was weaned off of this. History of COPD but not on any inhalers or nebulizers at home Last seen by pulmonary in November 2023 Chest x-ray with no evidence of acute infiltrate or consolidation or pleural effusion At this time, will order Breo Ellipta daily as well as albuterol every 4 hours as needed for shortness of breath or wheezes Mucinex 1200 mg twice daily Flutter valve Ambulate as tolerated (2) Pulmonary embolism: Plan: History of pulmonary embolism. Patient was previously on anticoagulation but this has been discontinued. No evidence of recurrent pulmonary embolism at this time. (3) COPD (chronic obstructive pulmonary disease): Plan: Follows with [facility] Last seen 11/2023 PFTs 10/16/2023 with mild obstructive lung dysfunction with significant bronchodilator response. Normal TLC with mild decrease in ERV. Mild decrease in DLCO. Will treat the patient as a COPD exacerbation at this time with Mucinex, nebulizers as needed, Breo Ellipta scheduled No tobacco abuse history but patient exposed to significant secondhand smoke Lorazepam as needed for anxiety (4) S/P placement of cardiac pacemaker: Plan: Pacemaker leads appear to be in place. Patient is tachycardic at this time Continue metoprolol (5) Hypertension: Plan: Patient is slightly hypertensive at this time with a systolic blood pressure of 176. She reports that she did not take her morning medications Will order her metoprolol at this time to control both blood pressure and tachycardia Continue home meds Admit to telemetry (6) Stage III chronic kidney disease: Plan: Creatinine 1.25 Baseline creatinine 1.4-1.5 Follow serial labs Plan Admit to telemetry unit DVT prophylaxis with Lovenox Ambulate as tolerated History of Present Illness Chief Complaint: Shortness of breath/hypoxia Primary Care Provider: Shanel Mendiola MD Attending: Dr. Cedillo 74-year-old female with history of COPD, history of PE, history of hypoxia, status postplacement of cardiac pacemaker, cerebrovascular disease, hyperlipidemia, hypertension, osteoporosis, polyneuropathy, stage III chronic kidney disease, vitamin B12 deficiency, vitamin D deficiency, depression, anxiety. Patient reports that she has had shortness of breath since Friday. It seems to be worsening. She has a dry cough. No significant production of sputum. She denies any hemoptysis. No chest pain or tightness. No nausea or vomiting. She further denies fever. Patient received 3 DuoNeb treatments and continues to have considerable shortness of breath as well as hypoxia. She desaturated as low Marlon 87% on room air. She currently is on a oxymask and is saturating 93%. She does have tachycardia with a heart rate of 120. She denies chest pain at this time. Patient did not take any of her a.m. medications. She reports that she was unable to take them because of cough. Viral culture was completed and patient is negative for COVID, influenza, RSV. Allergies Allergy/AdvReac Type Severity Reaction Status Date / Time Penicillins Allergy Intermediate HIVES Verified 08/29/24 15:01 codeine Allergy Unknown BLOOD Verified 08/29/24 15:01 PRESSURE DROPS morphine Allergy Unknown HYPOTENSION Verified 08/29/24 15:01 Home Medications Medication Instructions Recorded Confirmed Type omeprazole 20 mg capsule,delayed 20 mg PO DAILY #90 caps 09/22/23 08/29/24 Rx release mirtazapine 30 mg tablet 15 mg PO DAILY 02/11/24 08/29/24 History venlafaxine 150 mg 150 mg PO DAILY 02/11/24 08/29/24 History capsule,extended release 24 hr (Effexor XR) metoprolol succinate 50 mg 50 mg PO DAILY #90 tabs 02/25/24 08/29/24 Rx tablet,extended release 24 hr tizanidine 4 mg tablet 4 mg PO Q8H PRN muscle spasticity 05/10/24 08/29/24 Rx #30 tabs trimethoprim 100 mg tablet 100 mg PO QPM #90 tabs 06/28/24 08/29/24 Rx hydrochlorothiazide 25 mg tablet 25 mg PO DAILY #30 tabs 08/20/24 08/29/24 Rx gabapentin 800 mg tablet 800 mg PO TID 08/29/24 08/29/24 History Past Med/Surg History Problem List (Updated 08/29/24 @ 14:35 by Damian Leal MD) Hypoxia (Acute) Right carotid bruit Localized swelling of both lower legs Depression Obstructive airway disease Abnormal chest CT Pulmonary embolism Chronic pain Hypoxia (Acute) COPD (chronic obstructive pulmonary disease) SOB (shortness of breath) (Acute) Hyperglycemia Intermittent palpitations S/P placement of cardiac pacemaker (Acute 06/06/11) Generator change-out 09/17/22 Encounter for health maintenance examination Peripheral neuropathy (Chronic) Balance problem (Acute) Cerebrovascular disease (Acute) Gait disturbance (Acute) Hyperlipidemia (Acute) Hypertension (Acute) Insomnia (Acute) Low back pain (Acute) Migraine (Chronic) Osteoporosis (Acute) Polyneuropathy (Chronic) Presence of cardiac pacemaker (Acute) Stage III chronic kidney disease (Acute) Vitamin B12 deficiency (Acute) Vitamin D deficiency (Acute) Medical History Thrush Pneumonia Acute respiratory failure with hypoxia Viral URI Shortness of breath Enterovirus infection Chest congestion Chest pain Right sided abdominal pain Pacemaker at end of battery life SSS (sick sinus syndrome) Parkinsonism Hypoxia Atrial fibrillation Surgical History S/P cardiac pacemaker procedure History of back surgery Family History Mother Hypertension Father Hypertension Family/Other Heart disease Denies family history of Colon cancer Ovarian cancer Prostate cancer Chronic kidney disease Myocardial infarction Breast cancer Social History Smoking Status: Never smoker Tobacco Type: Cigarettes Age Started Using Tobacco: 24; Age Quit Using Tobacco: 27; packs per day: 0.5; Hx Alcohol Use: No Hx Substance Use: No Preferred Language: [place]agu[place] Communication Ability: Effective Visual Impairment: No Limitations Hearing Ability: Normal Network Liaison Required: No Beliefs That Will Affect Care: None marital status: Current Living Situation: Spouse current occupational status: retired Feels Safe at Home: Yes Childhood Exposure to Second-Hand Smoke: Yes Dental Care, Regularly: No Physical Activity Frequency: Does not Exercise Seatbelt Use: always Sunscreen Use: No Assistive Devices: Oxygen - Continuous Review of Systems 2 Review of Systems: A total of 10 systems was reviewed and is negative other than as listed in the HPI Physical Exam 2 Physical Exam: GENERAL : Moderate distress EYES: No icterus, gaze conjugate NOSE: No evidence of epistaxis MOUTH: No lesions or candidiasis NECK: Supple LUNGS: Diffuse rhonchi with rales at the bilateral bases. HEART: Regular, tachycardic at 120 bpm ABDOMEN: Soft, NT, ND, BS Present EXTREMITIES: +1 bilateral LE edema, pedal pulses intact and equal bilaterally. No mottling NEURO: A&OX3 Results & Data Results & Data Vital Signs (Past 12 Hours) Vital Signs Temp Pulse Pulse Resp BP BP Pulse Ox 08/29/24 13:53 88 L 08/29/24 13:45 120 H 12 91 08/29/24 13:30 113 H 14 176/91 H 97 08/29/24 13:24 106 H 12 98 08/29/24 13:12 107 H 18 94 08/29/24 13:09 115 H 19 171/92 H 97 08/29/24 12:25 111 H 20 173/99 H 92 08/29/24 11:51 113 H 20 97 08/29/24 11:45 95 H 15 98 08/29/24 11:43 152/92 H 08/29/24 11:30 108 H 21 08/29/24 11:24 119 H 19 93 08/29/24 11:20 08/29/24 11:18 111 H 08/29/24 11:14 95 08/29/24 11:14 36.5 C 112 H 20 160/121 H 95 O2 Del Method O2 Flow Rate 08/29/24 13:53 Nasal Cannula 0 08/29/24 13:45 Room Air 08/29/24 13:30 Nebulizer 08/29/24 13:24 Nebulizer 08/29/24 13:12 Nebulizer 08/29/24 13:09 Room Air 08/29/24 12:25 Room Air 08/29/24 11:51 Nebulizer 08/29/24 11:45 Nebulizer 08/29/24 11:43 08/29/24 11:30 08/29/24 11:24 Room Air 08/29/24 11:20 Room Air 08/29/24 11:18 08/29/24 11:14 Room Air 08/29/24 11:14 Room Air Laboratory Results 08/29/24 11:30 08/29/24 11:30 Diagnostic Findings Chest X-Ray 08/29/24 11:25 XR chest 2V PA/lateral CLINICAL HISTORY: sob TECHNIQUE: 2 views of the chest were obtained. Comparison: Comparison is made to chest radiograph 08/18/2024 FINDINGS: An implanted pacemaker is seen. The cardiomediastinal silhouette is normal. The lungs are clear. No evidence of pleural effusion or pneumothorax. IMPRESSION: No acute abnormalities and in particular no radiographic evidence of pneumonia. ACT 112: Negative or not required by law. Electronically signed by: Ted Galvan M.D. 08/29/2024 12:50 PM Code Status & VTE Plan Code Status Full resuscitation VTE Prophylaxis Plan VTE Prophylaxis will be ordered: Yes Supervising Physician Co-Signing Physician Notes Patient was seen and examined independently I discussed the case with Alex Luis PAC I reviewed pertinent past medical social family history and also the plan of care and agree with the plan of care. Pt here with marked shortness of breath, also with significant anxiety, does see pulmonary and has history of obstructive lung disease suspected to be from second hand smoke will treat as copd exacerbation, with anxiety overlay, has fair air movement no wheezes and no hypoxia so holding on steroids last EF was preserved with valvular heart disease significant blanchard coarse breath sounds abd is soft will check CTA for secondary cause for dyspnea continue inhaled meds reinforce psyche med use Any exceptions will be noted below PG Care Time/CCT Total # of Minutes Spent Total Time Spent with Patient: Total time spent is greater than 50% in coordination of care (as documented) at patient's floor/unit and/or counseling patient: 60 minutes Coding Level of Care Code 63920 INT INP/OBS CARE 2/55MIN Diagnoses Hypoxia R09.02 Single subsegmental pulmonary embolism without acute cor pulmonale I26.93 Pulmonary embolism type: single subsegmental (without acute cor pulmonale) COPD (chronic obstructive pulmonary disease) J44.9 S/P placement of cardiac pacemaker Z95.0 Primary hypertension I10 Hypertension type: primary hypertension Stage III chronic kidney disease N18.3 Time Spent (min) 60 (2) Pulmonary embolism Pulmonary embolism type: single subsegmental (without acute cor pulmonale) Qualified Code(s): I26.93 - Single subsegmental pulmonary embolism without acute cor pulmonale (5) Hypertension Hypertension type: primary hypertension Qualified Code(s): I10 - Essential (primary) hypertension
[2024-08-29] MEDS: ONDANSETRON INJ 2 MG/ML 2 ML VIAL IV STA (14:59)
[2024-08-29] MEDS: LORazepam 0.5 MG TAB PO STA (15:17)
[2024-08-29] MEDS: METOPROLOL SUCC 50MG EXT REL TAB PO STA (15:55)
[2024-08-29] MEDS: OPTIRAY 320 125ml IV ONE (16:04)
--- NOTE | 2024-08-29 16:15 | CT Scan Report ---
CT angio chest PE protocol CLINICAL HISTORY: PE TECHNIQUE: Multidetector row helical CT of the chest was performed with angiographic protocol. Ward l and sagittal reformations were obtained. Coronal and sagittal MIPS were obtained from the axial mahin a set and were submitted for review. Automated dose lowering techniques and/or adjustment according to patient size were utilized for this exam. CT DOSE: 553.46 mGy.cm Comparison: Comparison is made to CT chest 10/16/2023 FINDINGS: Lungs and pleura: Minimal atelectasis is seen. Heart and pericardium: Heart size is normal. No pericardial effusion. Vessels: No evidence of pulmonary embolism. Mediastinum and emma: Unremarkable. Chest wall and lower neck: Unremarkable. Abdomen: A hiatal hernia is seen. Hepatic steatosis is seen. Bones: Compression deformities are seen in T11. IMPRESSION: No acute abnormality and in particular no evidence of pulmonary embolus. ACT 112: Negative or not required by law. Electronically signed by: Ted Galvan M.D. 08/29/2024 4:14 PM
[2024-08-29 16:45] LABS: Adenovirus PCR Not Detected (NotDetected); Bordetella parapertussis PCR Not Detected (NotDetected); Bordetella pertussis PCR Not Detected (NotDetected); Chlamydia pneumoniae PCR Not Detected (NotDetected); Coronavirus 229E PCR Not Detected (NotDetected); Coronavirus CoV-2 (COVID19)PCR Not Detected (NotDetected); Coronavirus HKU1 PCR Not Detected (NotDetected); Coronavirus NL63 PCR Not Detected (NotDetected); Coronavirus OC43PCR Not Detected (NotDetected); Human Metapneumovirus PCR Not Detected (NotDetected); Influenza A PCR Not Detected (NotDetected); Influenza B PCR Not Detected (NotDetected); Mycoplasma pneumoniae PCR Not Detected (NotDetected); Parainfluenza Virus 1 PCR Not Detected (NotDetected); Parainfluenza Virus 2 PCR Not Detected (NotDetected); Parainfluenza Virus 3 PCR Not Detected (NotDetected); Parainfluenza Virus 4 PCR Not Detected (NotDetected); Respiratory Syncytial VirusPCR Not Detected (NotDetected); Rhinovirus/Enterovirus PCR DETECTED (NotDetected)
[2024-08-29] MEDS ORDERED: ALBUT/IPRATROP 3MG/0.5MG NEB 3 ML VIAL NEB PRN (20:30)
[2024-08-29] MEDS ORDERED: LORazepam 0.5 MG TAB PO PRN (20:30)
[2024-08-29] MEDS ORDERED: ALUMINUM/MAGNESIUM SUSP 30 ML UDC PO PRN (20:30)
[2024-08-29] MEDS ORDERED: ONDANSETRON INJ 2 MG/ML 2 ML VIAL IV PRN (20:30)
[2024-08-29] MEDS ORDERED: MAGNESIUM HYDROXIDE SUSP 30 ML UDC PO PRN (20:30)
[2024-08-29] MEDS: guaiFENesin 600 MG TABCR PO SCH (21:08)
[2024-08-29] MEDS: ENOXAPARIN INJ 40 MG/0.4 ML SYR SQ SCH (21:08)
[2024-08-29] MEDS: FLUTICASONE/VILANTEROL 100/25MCG 14 PUFFS/INHALER INH SCH (21:25)
[2024-08-30] MEDS: GABAPENTIN 300 MG CAP PO SCH (00:09)
[2024-08-30 06:28] LABS: Basophils # (auto) 0.01 K/uL (0.00-0.20); Basophils % (auto) 0.1 %; Hematocrit (blood only) 39.2 % (37.0-47.0); Hemoglobin 13.7 g/dl (12.0-16.0); Immature Granulocytes # (auto) 0.06 K/uL (0.01-0.20); Immature Granulocytes % (auto) 0.9 %; Lymphocytes # (auto) 1.16 K/uL (1.20-3.40); Lymphocytes % (auto) 17.3 %; Mean Corpuscular Hemoglobin 31.5 pg (25.0-34.0); Mean Corpuscular Hgb Conc 34.9 g/dL (32.0-36.0); Mean Corpuscular Volume 90.1 fL (80.0-100.0); Mean Platelet Volume 9.3 fL (9.4-12.4); Monocytes % (auto) 7.5 %; Neutrophils # (auto) 4.97 K/uL (1.40-6.50); Neutrophils % (auto) 74.2 %; Platelet Count 270 K/uL (130-400); RDW Coefficient of Variation 12.5 % (11.5-14.5); RDW Standard Deviation 40.9 fL (36.4-46.3); Red Blood Count 4.35 M/uL (4.20-5.40)
[2024-08-30 06:54] LABS: BUN Creatinine Ratio 14.8 (10-20); Calcium 9.4 mg/dl (8.6-10.3); Creatinine Clr Calc Pharmacy 41.4 ml/min; Potassium 3.8 mmol/L (3.5-5.1)
--- NOTE | 2024-08-30 07:01 | XRay Report ---
XR chest 1V portable HISTORY: 74 years-old Female SOB/Hypoxia COMPARISON: 08/29/2024 TECHNIQUE: AP view of the chest FINDINGS: Cardiomediastinal and hilar silhouettes are within normal limits. Dual-lead left subclavian pacer. No pneumothorax, pleural effusion or airspace consolidation. The bones of the chest appear grossly inta ct. IMPRESSION: No acute process. ACT 112: Negative or not required by law. The above report was generated using voice recognition software. It may contain grammatical, syntax o r spelling errors. Electronically signed by: Braxton Roper M.D. 08/30/2024 7:00 AM
[2024-08-30 07:43] LABS: Appearance Urine Clear (Clear); Bacteria Urine Automated None Seen (None Seen); Bilirubin Urine Negative (Negative); Blood Urine Negative (Negative); Cast Urine Automated 0-2 /lpf (0-2); Color Urine Yellow; Glucose Urine UA Negative (Negative); Ketones Urine 1+ (Negative); Leukocyte Esterase Urine Negative (Negative); Nitrite Urine Negative (Negative); Protein Urine 1+ (Negative); RBC Urine Automated 0-2 /hpf (0-2); Specific Gravity Urine > 1.045 (1.000-1.030); Urobilinogen Urine Negative (Negative); WBC Urine Automated 0-5 /hpf (0-5); pH Urine 5.5 (4.5-7.5)
[2024-08-30] MEDS: PERFLUTREN LIPID MICROSPHERE (DEFINITY) IV ONE (08:08)
[2024-08-30] MEDS: PANTOprazole 40 MG TAB PO SCH (08:30)
[2024-08-30] MEDS: METOPROLOL SUCC 50MG EXT REL TAB PO SCH (08:30)
[2024-08-30] MEDS: hydroCHLOROthiazide 25 MG TAB PO SCH (08:30)
[2024-08-30] MEDS: VENLAFAXINE HCL XR 150 MG CAPXR PO SCH (08:30)
[2024-08-30] MEDS: MIRTAZAPINE TAB 15 MG TAB PO SCH (08:31)
--- NOTE | 2024-08-30 11:00 | XCELERA ---
[id number]
[2024-08-30] MEDS: SODIUM CHLORIDE 0.9% 1,000 ML IV SCH (12:51)
[2024-08-30] MEDS: ALBUT/IPRATROP 3MG/0.5MG NEB 3 ML VIAL NEB SCH (14:08)
--- NOTE | 2024-08-30 14:09 | Hospitalist Progress Note ---
Date of Service August 30, 2024 Assessment & Plan (1) Hypoxia: Plan: Patient presented to the ED on 08/29 with SOB. Found to be around 87% on room air and placed on O2 via oxymask. Patient now weaned to RA. -Biofire respiratory + for rhinovirus, remainder of workup negative -CXR: negative for acute pathology. (08/29 and 08/30) -ECHO 08/30: EF 60-65%. no significant valvular stenosis/regurgitation. -Continue Breo Ellipta daily. -Scheduled nebulizers -Scheduled Mucinex. -Added Dexamethasone 6mg PO daily. -Albuterol prn q 4h -continue incentive spirometry at bedside. -monitor O2. -s/p 1L NSS 08/30, encourage PO fluid intake. -CBC reviewed 08/30: stable. -BMP reviewed 08/30: creatinine bumped to 1.35. -patient does have hx of PE, previously anticoagulated but has since been discontinued. - no evidence of PE at this time. Chest CTA upon admission was negative. -PT/OT consulted, appreciate recommendations. AM CBC, BMP (2) COPD (chronic obstructive pulmonary disease): Plan: Follows with [facility] [place] Last seen 11/2023 PFTs 10/16/2023 with mild obstructive lung dysfunction with significant bronchodilator response. Normal TLC with mild decrease in ERV. Mild decrease in DLCO. No tobacco abuse history but patient exposed to significant secondhand smoke Lorazepam as needed for anxiety remainder of plan as above. (3) Stage III chronic kidney disease: Plan: Creatinine 1.25 Baseline creatinine 1.4-1.5 BMP reviewed 08/30: creat 1.35 s/p1L NSS 08/30 AM BMP Plan Chronic conditions: HTN: continue metoprolol, HCTZ GERD: PPI Neuropathy: gabapentin Mental health: Remeron Disposition: tele DVT prophylaxis: Lovenox Diet: heart healthy Code status: full Updated at bedside with plan 08/30. Admission and Anticipated Discharge Date Admission Date: August 29, 2024 Supervising Physician Co-Signing Physician Notes Attending Attestation - Chart reviewed, care plan d/w ROQUE Blackman. I agree w/ the marmolejo components of her documentation. Agree with systemic steroids for rhinovirus induced COPD exacerbation. Herbert Porter MD Subjective patient seen and examined this morning with at bedside. patient states she feels better today vs yesterday. she was on RA at time of encounter. states she still has a cough and is feeling overall weak. requesting PT/OT consults. Patient states she has been using her incentive spirometer at bedside. Physical Exam 2 Constitutional: WD/WN, vitals as above Eyes: PERRL, conjunctivae normal, anicteric sclerae Respiratory: wheezing b/l, diminished lung sounds b/l Cardiovascular: tachy, no murmur, no edema Skin: no rashes, warm and dry Psychiatric: A+Ox3, euthymic affect Results & Data Results & Data Vital Signs (Past 12 Hours) Vital Signs Temp Pulse Pulse Resp BP Pulse Ox O2 Del Method 08/30/24 11:18 36.4 C L 97 H 18 114/72 95 Room Air 08/30/24 07:13 36.7 C 95 H 18 131/80 97 Oxymask 08/30/24 07:00 Oxymask 08/30/24 06:53 94 H 08/30/24 02:53 36.8 C 96 H 18 152/76 H 96 Oxymask O2 Flow Rate 08/30/24 11:18 08/30/24 07:13 4 08/30/24 07:00 2 08/30/24 06:53 08/30/24 02:53 2 Laboratory Results 08/30/24 05:52 08/30/24 05:52 PG Care Time/CCT Total # of Minutes Spent Total Time Spent with Patient: Total time spent is greater than 50% in coordination of care (as documented) at patient's floor/unit and/or counseling patient: Coding Level of Care Code 82703 SUB INP/OBS CARE 2/35MIN Diagnoses Hypoxia R09.02 COPD (chronic obstructive pulmonary disease) J44.9 Stage III chronic kidney disease N18.3
[2024-08-30] MEDS: dexAMETHasone 4 MG TAB PO SCH (17:56)
[2024-08-31 07:56] LABS: Hematocrit (blood only) 35.9 % (37.0-47.0); Hemoglobin 12.6 g/dl (12.0-16.0); Immature Granulocytes # (auto) 0.01 K/uL (0.01-0.20); Immature Granulocytes % (auto) 0.2 %; Lymphocytes # (auto) 0.52 K/uL (1.20-3.40); Lymphocytes % (auto) 10.5 %; Mean Corpuscular Hemoglobin 31.7 pg (25.0-34.0); Mean Corpuscular Hgb Conc 35.1 g/dL (32.0-36.0); Mean Corpuscular Volume 90.4 fL (80.0-100.0); Mean Platelet Volume 9.2 fL (9.4-12.4); Monocytes # (auto) 0.09 K/uL (0.11-0.59); Monocytes % (auto) 1.8 %; Neutrophils # (auto) 4.33 K/uL (1.40-6.50); Neutrophils % (auto) 87.5 %; Platelet Count 255 K/uL (130-400); RDW Coefficient of Variation 12.2 % (11.5-14.5); RDW Standard Deviation 40.1 fL (36.4-46.3); Red Blood Count 3.97 M/uL (4.20-5.40); White Blood Count 4.95 K/ul (4.8-10.8)
[2024-08-31 08:11] LABS: BUN Creatinine Ratio 18.8 (10-20); Calcium 8.8 mg/dl (8.6-10.3); Creatinine Clr Calc Pharmacy 36.2 ml/min; Potassium 4.4 mmol/L (3.5-5.1)
--- NOTE | 2024-08-31 17:41 | Hospitalist Progress Note ---
Date of Service August 31, 2024 Assessment & Plan (1) Hypoxia: Plan: Patient presented to the ED on 08/29 with SOB. Found to be around 87% on room air and placed on O2 via oxymask. -Biofire respiratory + for rhinovirus, remainder of workup negative -CXR: negative for acute pathology (08/29 and 08/30) -ECHO 08/30: EF 60-65%. no significant valvular stenosis/regurgitation. Rhinovirus induced COPD exacerbation - Continue Breo Ellipta daily - Scheduled nebulizers - Scheduled Mucinex - Continue Dexamethasone 6mg PO daily x10 days - Albuterol PRN for shortness of breath/wheezing - Continue incentive spirometry at bedside - Started hypertonic saline nebs BID as mucolytic -patient does have hx of PE, previously anticoagulated but has since been discontinued. - no evidence of PE at this time. Chest CTA upon admission was negative. - Prelim urine culture showing pin-point growth present, reincubating -PT/OT recomending home health services -Patient continues to require supplemental O2, which she does not require at baseline (2) COPD (chronic obstructive pulmonary disease): Plan: [place] [facility] [place] Last seen 11/2023 PFTs 10/16/2023 with mild obstructive lung dysfunction with significant bronchodilator response. Normal TLC with mild decrease in ERV. Mild decrease in DLCO. No tobacco abuse history but patient exposed to significant secondhand smoke Lorazepam as needed for anxiety remainder of plan as above. (3) Stage III chronic kidney disease: Plan: Baseline creatinine 1.4-1.5 Avoid nephrotoxic agents when possible AM BMP Plan Ordered saline nebs Chronic conditions: HTN: continue metoprolol, HCTZ GERD: PPI Neuropathy: gabapentin Mental health: Remeron Disposition: tele DVT prophylaxis: Lovenox Diet: heart healthy Code status: full Updated at bedside with plan 08/30. Admission and Anticipated Discharge Date Admission Date: August 29, 2024 Supervising Physician Co-Signing Physician Notes Attending Attestation - Chart reviewed, care plan d/w ROQEU Maloney. I agree w/ the marmolejo components of her documentation. Cont steroids, nebs, etc for rhinovirus induced COPD exacerbation. Add saline nebs in addition to the above. Herbert Porter MD Subjective Patient seen and evaluated at bedside. She reports that her "chest tightness" is improved compared to yesterday. She does note an increased cough today, which she reports is nonproductive. She continues to require supplemental oxygen to maintain her O2 sat. She notes that she does not require supplemental O2 at baseline. No additional complaints or concerns at this time. Physical Exam Physical Exam: General: No acute distress, nondiaphoretic, well-developed, well-nourished. Skin: The skin was without rashes, erythema, edema, or bruising. Cardiac: Regular rate and rhythm without murmurs gallops or rubs. Pulm: Course crackles throughout lung holder bilaterally. No respiratory distress. 92% on Oxymask. Abdominal: Soft, nontender, nondistended. Bowel sounds present. Neuro: A&O x3. No focal neurological deficits. Results & Data Results & Data Vital Signs (Past 12 Hours) Vital Signs Temp Pulse Pulse Resp BP Pulse Ox O2 Del Method 08/31/24 16:43 88 08/31/24 15:18 97.2 F L 93 H 16 118/68 92 Oxymask 08/31/24 14:59 88 18 94 Oxymask 08/31/24 12:41 97.9 F 86 16 110/75 88 L Oxymask 08/31/24 11:38 92 H 88 L Oxymask 08/31/24 08:24 79 08/31/24 08:00 Oxymask 08/31/24 07:58 90 14 93 Oxymask 08/31/24 07:20 97.5 F L 79 18 101/63 95 Oxymask O2 Flow Rate 08/31/24 16:43 08/31/24 15:18 2 08/31/24 14:59 4 08/31/24 12:41 2 08/31/24 11:38 3 08/31/24 08:24 08/31/24 08:00 2 08/31/24 07:58 3 08/31/24 07:20 2 Laboratory Results Reviewed CBC Reviewed BMP Reviewed urine culture PG Care Time/CCT Total # of Minutes Spent Total Time Spent with Patient: Total time spent is greater than 50% in coordination of care (as documented) at patient's floor/unit and/or counseling patient: Coding Level of Care Code 59821 SUB INP/OBS CARE 2/35MIN Diagnoses Hypoxia R09.02 COPD (chronic obstructive pulmonary disease) J44.9 Stage III chronic kidney disease N18.3
[2024-08-31] MEDS: ACETAMINOPHEN 325 MG TAB PO PRN (20:25)
[2024-09-01] MEDS: SODIUM CHLOR 7% 4 ML NEB NEB SCH (00:16)
[2024-09-01 06:17] LABS: Basophils # (auto) 0.01 K/uL (0.00-0.20); Basophils % (auto) 0.2 %; Hematocrit (blood only) 36.1 % (37.0-47.0); Hemoglobin 12.1 g/dl (12.0-16.0); Immature Granulocytes # (auto) 0.04 K/uL (0.01-0.20); Immature Granulocytes % (auto) 0.7 %; Lymphocytes # (auto) 1.04 K/uL (1.20-3.40); Lymphocytes % (auto) 17.3 %; Mean Corpuscular Hemoglobin 31.1 pg (25.0-34.0); Mean Corpuscular Hgb Conc 33.5 g/dL (32.0-36.0); Mean Corpuscular Volume 92.8 fL (80.0-100.0); Mean Platelet Volume 9.1 fL (9.4-12.4); Monocytes # (auto) 0.38 K/uL (0.11-0.59); Monocytes % (auto) 6.3 %; Neutrophils # (auto) 4.53 K/uL (1.40-6.50); Neutrophils % (auto) 75.5 %; Platelet Count 233 K/uL (130-400); RDW Coefficient of Variation 12.4 % (11.5-14.5); Red Blood Count 3.89 M/uL (4.20-5.40)
[2024-09-01 06:43] LABS: BUN Creatinine Ratio 22.3 (10-20); Calcium 8.8 mg/dl (8.6-10.3); Creatinine Clr Calc Pharmacy 34.2 ml/min; Potassium 3.7 mmol/L (3.5-5.1)
--- NOTE | 2024-09-01 18:12 | Hospitalist Progress Note ---
Date of Service September 01, 2024 Assessment & Plan (1) Hypoxia: Plan: Patient presented to the ED on 08/29 with SOB. Found to be around 87% on room air and placed on O2 via oxymask. -[employer]fire respiratory + for rhinovirus, remainder of workup negative -CXR: negative for acute pathology (08/29 and 08/30) -ECHO 08/30: EF 60-65%. no significant valvular stenosis/regurgitation. Rhinovirus induced COPD exacerbation - Continue Breo Ellipta daily - Scheduled nebulizers - Scheduled Mucinex - Continue Dexamethasone 6mg PO daily x10 days - Albuterol PRN for shortness of breath/wheezing - Continue incentive spirometry at bedside - Continue hypertonic saline nebs BID as mucolytic -Patient does have hx of PE, previously anticoagulated but has since been discontinued. - no evidence of PE at this time. Chest CTA upon admission was negative. - Prelim urine culture showing pin-point growth present, reincubating -PT/OT recomending home health services -Patient continues to require supplemental O2, which she does not require at baseline (2) COPD (chronic obstructive pulmonary disease): Plan: Follows with [facility] [place] pulmonary Last seen 11/2023 PFTs 10/16/2023 with mild obstructive lung dysfunction with significant bronchodilator response. Normal TLC with mild decrease in ERV. Mild decrease in DLCO. No tobacco abuse history but patient exposed to significant secondhand smoke Lorazepam as needed for anxiety remainder of plan as above. (3) Stage III chronic kidney disease: Plan: Baseline creatinine 1.4-1.5 Avoid nephrotoxic agents when possible AM BMP Plan Chronic conditions: HTN: continue metoprolol, HCTZ GERD: PPI Neuropathy: gabapentin Mental health: Remeron Disposition: tele DVT prophylaxis: Lovenox Diet: heart healthy Code status: full Updated at bedside with plan 08/30. Admission and Anticipated Discharge Date Admission Date: August 31, 2024 Supervising Physician Co-Signing Physician Notes Attending Attestation - Chart reviewed, care plan d/w ROQUE Maloney. I agree w/ the marmolejo components of her documentation. Herbert Porter MD Subjective Patient seen and evaluated in bedside chair. She reports that she continues to have a nonproductive cough. She also continues to require supplemental oxygen to maintain her O2 sat. She states that overall she feels slightly better today compared to yesterday. No additional complaints or concerns at this time. Physical Exam Physical Exam: General: No acute distress, nondiaphoretic, well-developed, well-nourished. Skin: The skin was without rashes, erythema, edema, or bruising. Cardiac: Regular rate and rhythm without murmurs gallops or rubs. Pulm: Course crackles throughout lung holder bilaterally. Diminished breath sounds at bases bilaterally. No respiratory distress. 94% on 2L Oxymask. Abdominal: Soft, nontender, nondistended. Bowel sounds present. Neuro: A&O x3. No focal neurological deficits. Results & Data Results & Data Vital Signs (Past 12 Hours) Vital Signs Temp Pulse Pulse Resp BP Pulse Ox Pulse Ox 09/01/24 16:11 97.7 F 82 16 118/68 94 09/01/24 15:32 86 18 94 09/01/24 14:42 93 09/01/24 11:51 97.2 F L 86 16 118/73 94 09/01/24 11:22 79 20 94 09/01/24 09:25 09/01/24 07:50 97.3 F L 79 16 128/75 97 09/01/24 07:20 87 09/01/24 07:12 81 16 96 Pulse Ox Pulse Ox O2 Del Method O2 Flow Rate O2 Flow Rate O2 Flow Rate O2 Flow Rate 09/01/24 16:11 Nasal Cannula, Oxymask 2 09/01/24 15:32 Oxymask 2 09/01/24 14:42 95 87 L 2 2 0 09/01/24 11:51 Oxymask 2 09/01/24 11:22 Oxymask 2 09/01/24 09:25 Oxymask 2 09/01/24 07:50 Oxymask 4 09/01/24 07:20 09/01/24 07:12 Oxymask 4 Laboratory Results Reviewed CBC Reviewed BMP Reviewed urine culture PG Care Time/CCT Total # of Minutes Spent Total Time Spent with Patient: Total time spent is greater than 50% in coordination of care (as documented) at patient's floor/unit and/or counseling patient: Coding Level of Care Code 06625 SUB INP/OBS CARE 2/35MIN Diagnoses Hypoxia R09.02 COPD (chronic obstructive pulmonary disease) J44.9 Stage III chronic kidney disease N18.3
--- NOTE | 2024-09-01 22:45 | Electrocardiogram Report ---
Test Reason : Blood Pressure : */* mmHG Vent. Rate : 110 BPM Atrial Rate : 110 BPM P-R Int : 168 ms QRS Dur : 80 ms QT Int : 340 ms P-R-T Axes : 75 50 89 degrees QTcB Int : 460 ms Sinus tachycardia Biatrial enlargement Nonspecific ST and T wave abnormality Abnormal ECG When compared with ECG of 30-Jan-2024 11:25, No significant change Confirmed by Cody Evans ([id number]) on 09/01/2024 10:45:13 PM Referred By: Confirmed By: Cody Evans
[2024-09-02 08:16] LABS: BUN Creatinine Ratio 22.6 (10-20); Calcium 8.9 mg/dl (8.6-10.3); Creatinine Clr Calc Pharmacy 38.8 ml/min; Potassium 3.6 mmol/L (3.5-5.1)
--- NOTE | 2024-09-02 17:33 | Hospitalist Progress Note ---
Date of Service September 02, 2024 Assessment & Plan (1) Hypoxia: Plan: Patient presented to the ED on 08/29 with SOB. Found to be around 87% on room air and placed on O2 via oxymask. -Biofire respiratory + for rhinovirus, remainder of workup negative -CXR: negative for acute pathology (08/29 and 08/30) -ECHO 08/30: EF 60-65%. no significant valvular stenosis/regurgitation. Rhinovirus induced COPD exacerbation - Continue Breo Ellipta daily - Scheduled nebulizers - Scheduled Mucinex - Continue Dexamethasone 6mg PO daily x10 days - Albuterol PRN for shortness of breath/wheezing - Continue incentive spirometry at bedside - Continue hypertonic saline nebs BID as mucolytic -Patient does have hx of PE, previously anticoagulated but has since been discontinued. - no evidence of PE at this time. Chest CTA upon admission was negative. -Urine culture negative -PT/OT recommending home health services -No longer requiring supplemental oxygen. Has been stable on room air 09/02. Continue to monitor symptoms and O2 sat - if continues to improve/remain stable, anticipate discharge 09/03 (2) COPD (chronic obstructive pulmonary disease): Plan: Follows with [facility] pulmonary Last seen 11/2023 PFTs 10/16/2023 with mild obstructive lung dysfunction with significant bronchodilator response. Normal TLC with mild decrease in ERV. Mild decrease in DLCO. No tobacco abuse history but patient exposed to significant secondhand smoke Lorazepam as needed for anxiety remainder of plan as above. (3) Stage III chronic kidney disease: Plan: Baseline creatinine 1.4-1.5 Avoid nephrotoxic agents when possible Plan Chronic conditions: HTN: continue metoprolol, HCTZ GERD: PPI Neuropathy: gabapentin Mental health: Remeron Disposition: tele DVT prophylaxis: Lovenox Diet: heart healthy Code status: full Updated at bedside with plan 08/30. Admission and Anticipated Discharge Date Admission Date: August 31, 2024 Supervising Physician Co-Signing Physician Notes Attending Attestation - Chart reviewed, care plan d/w ROQUE Maloney. I agree w/ the marmolejo components of her documentation. Herbert Porter MD Subjective Patient seen and evaluated in bedside chair. She reports feeling better today. She is now off supplemental oxygen. She does note that her cough continues, though remains unproductive. She denies any shortness of breath or difficulty breathing. If symptoms continue to improve and she remains stable on room air, anticipate discharge 09/03. No additional complaints or concerns at this time. Physical Exam Physical Exam: General: No acute distress, nondiaphoretic, well-developed, well-nourished. Skin: The skin was without rashes, erythema, edema, or bruising. Cardiac: Regular rate and rhythm without murmurs gallops or rubs. Pulm: Diminished breath sounds at bases bilaterally. Minimal crackles throughout lung holder. No respiratory distress. 94% on room air. Abdominal: Soft, nontender, nondistended. Bowel sounds present. Neuro: A&O x3. No focal neurological deficits. Results & Data Results & Data Vital Signs (Past 12 Hours) Vital Signs Temp Pulse Pulse Resp BP Pulse Ox O2 Del Method 09/02/24 16:55 68 09/02/24 15:49 82 19 94 Room Air 09/02/24 15:30 97.5 F L 82 20 125/76 93 Nasal Cannula 09/02/24 11:36 88 20 92 Nasal Cannula 09/02/24 11:11 97.5 F L 87 20 99/66 L 95 Nasal Cannula 09/02/24 10:44 71 09/02/24 08:27 Nasal Cannula 09/02/24 07:45 98.2 F 80 20 121/81 94 Nasal Cannula 09/02/24 07:19 80 20 91 Nasal Cannula O2 Flow Rate 09/02/24 16:55 09/02/24 15:49 09/02/24 15:30 2 09/02/24 11:36 2 09/02/24 11:11 2 09/02/24 10:44 09/02/24 08:27 09/02/24 07:45 2 09/02/24 07:19 2 Laboratory Results Reviewed BMP PG Care Time/CCT Total # of Minutes Spent Total Time Spent with Patient: Total time spent is greater than 50% in coordination of care (as documented) at patient's floor/unit and/or counseling patient: Coding Level of Care Code 37767 SUB INP/OBS CARE 2/35MIN Diagnoses Hypoxia R09.02 COPD (chronic obstructive pulmonary disease) J44.9 Stage III chronic kidney disease N18.3
[2024-09-03 14:56] VITALS: O2SAT 92
[2024-09-03 15:38] VITALS: BP 133/80; PULSE 84; RESP 16; TEMP 97.7
--- NOTE | 2024-09-03 19:13 | Discharge Summary ---
Discharge Summary Date of Service September 03, 2024 Principal Dx & Hospital Course #1 = Principal Diagnosis (1) Hypoxia: Patient presented to the ED on 08/29 with SOB. Found to be around 87% on room air and placed on O2 via oxymask. -Biofire respiratory + for rhinovirus, remainder of workup negative -CXR: negative for acute pathology (08/29 and 08/30) -ECHO 08/30: EF 60-65%. no significant valvular stenosis/regurgitation. Rhinovirus induced COPD exacerbation - Treated with Breo Ellipta daily, Scheduled nebulizers, Scheduled Mucinex, Continue Dexamethasone 6mg PO daily x10 days, Albuterol PRN for shortness of breath/wheezing, Continue incentive spirometry at bedside, Continue hypertonic saline nebs BID as mucolytic -Patient does have hx of PE, previously anticoagulated but has since been discontinued. - no evidence of PE at this time. Chest CTA upon admission was negative. -Urine culture negative -PT/OT recommending home health services, but patient declined - No longer requiring supplemental oxygen. Continued to remain stable on room air. 2-step negative for ambulatory O2 needs. - Discharged with dexamethasone 6 mg daily through 09/08, albuterol inhaler as needed, incentive spirometer, and OTC Mucinex (2) COPD (chronic obstructive pulmonary disease): Follows with [facility] pulmonary Last seen 11/2023 PFTs 10/16/2023 with mild obstructive lung dysfunction with significant bronc hodilator response. Normal TLC with mild decrease in ERV. Mild decrease in DLCO. No tobacco abuse history but patient exposed to significant secondhand smoke Lorazepam as needed for anxiety remainder of plan as above. (3) Stage III chronic kidney disease: Baseline creatinine 1.4-1.5 Avoid nephrotoxic agents when possible Plan Chronic conditions: HTN: continue metoprolol, HCTZ GERD: PPI Neuropathy: gabapentin Mental health: Remeron Code status: full Notes For Next Care Provider Medication Changes From Visit Dexamethasone 6 mg daily through 09/08 Albuterol inhaler as needed Recommended Mucinex OTC Decreased gabapentin dose to 300 mg 3 times daily given creatinine clearance Admission HPI Per Admitting Provider Attending: Dr. Cedillo 74-year-old female with history of COPD, history of PE, history of hypoxia, status postplacement of cardiac pacemaker, cerebrovascular disease, hyperlipidemia, hypertension, osteoporosis, polyneuropathy, stage III chronic kidney disease, vitamin B12 deficiency, vitamin D deficiency, depression, anxiety. Patient reports that she has had shortness of breath since Friday. It seems to be worsening. She has a dry cough. No significant production of sputum. She denies any hemoptysis. No chest pain or tightness. No nausea or vomiting. She further denies fever. Patient received 3 DuoNeb treatments and continues to have considerable shortness of breath as well as hypoxia. She desaturated as low Marlon 87% on room air. She currently is on a oxymask and is saturating 93%. She does have tachycardia with a heart rate of 120. She denies chest pain at this time. Patient did not take any of her a.m. medications. She reports that she was unable to take them because of cough. Viral culture was completed and patient is negative for COVID, influenza, RSV. Admission Exam Per Admitting Provider GENERAL : Moderate distress EYES: No icterus, gaze conjugate NOSE: No evidence of epistaxis MOUTH: No lesions or candidiasis NECK: Supple LUNGS: Diffuse rhonchi with rales at the bilateral bases. HEART: Regular, tachycardic at 120 bpm ABDOMEN: Soft, NT, ND, BS Present EXTREMITIES: +1 bilateral LE edema, pedal pulses intact and equal bilaterally. No mottling NEURO: A&OX3 Discharge Exam General: No acute distress, nondiaphoretic, well-developed, well-nourished. Skin: The skin was without rashes, erythema, edema, or bruising. Cardiac: Regular rate and rhythm without murmurs gallops or rubs. Pulm: Diminished breath sounds at bases bilaterally. Minimal crackles throughout lung holder, improving. No respiratory distress. 94% on room air. Abdominal: Soft, nontender, nondistended. Bowel sounds present. Neuro: A&O x3. No focal neurological deficits. Discharge Plan Discharge Items Patient Disposition: Home - Self-Care Reason For Visit: SOB/HYPOXIA Discharge Diagnosis: Rhinovirus induced COPD exacerbation Activity: Resume your previous activity Non-emergency contact: Primary Care Provider Call non-emergency contact if: you have any medication questions, your symptoms worsen and you have a fever Follow-up/Referrals: Shanel Mendiola MD [Primary Care Provider] - 09/10/24 10:30 am () Diet: Heart Healthy Addtl Attending Provider Instructions: Mrs. Cannon, You were admitted to the hospital due to a rhinovirus-induced COPD exacerbation. This is what caused your symptoms of cough and shortness of breath. You were treated with steroids, expectorants, and breathing treatments while in the hospital. You are no longer requiring supplemental oxygen to maintain your oxygen saturations. Upon discharge from the hospital: * Continue taking Dexamethasone (oral steroid) 6 mg daily until 09/08. * Use albuterol inhaler 1-2 puffs every 2-4 hours as needed for shortness of breath or wheezing. * Take Mucinex 1200 mg twice daily for the next few days. This is an expectorant that helps loosen the mucus in your chest, allowing you to cough it out. * Continue to use your incentive spirometer provided by the hospital. This will help maintain your lung strength. * Your dose of gabapentin was reduced to 300 mg three times daily due to your kidney function. Continue this dose. * Follow-up with your PCP in the next 1-2 weeks. Please return to the hospital if you experience any of the following: Shortness of breath, wheezing, or trouble breathing that gets worse or does not get better with treatment, tightness in your chest that does not go away with your normal medicines, feeling that your heart is racing or irregular heartbeat, chest pain, difficulty speaking, lightheadedness or dizziness, confusion, or passing out. It was a pleasure taking care of you while you were in the hospital, Kriss Lee PA-C Pending Studies at Discharge: No Stand-Alone Forms: My [facility], Smoking Cessation Medications and DC Order Prescriptions: New dexamethasone 4 mg Tablet 6 mg PO DAILY Qty: 6 0RF gabapentin 300 mg Capsule 300 mg PO TID Qty: 90 0RF albuterol sulfate 90 mcg/actuation HFA aerosol inhaler 1 - 2 inh inhalation Q4H PRN (Reason: shortness of breath or wheezing) Qty: 8.5 0RF Continued omeprazole 20 mg capsule,delayed release(DR/EC) 20 mg PO DAILY Qty: 90 3RF metoprolol succinate 50 mg tablet extended release 24 hr 50 mg PO DAILY Qty: 90 3RF trimethoprim 100 mg tablet 100 mg PO QPM Qty: 90 3RF Hold Instructions: Resume on 08/27/23. hydrochlorothiazide 25 mg tablet 25 mg PO DAILY Qty: 30 1RF tizanidine 4 mg tablet 4 mg PO Q8H PRN (Reason: muscle spasticity) Qty: 30 1RF mirtazapine 30 mg tablet 15 mg PO DAILY venlafaxine [Effexor XR] 150 mg capsule,extended release 24hr 150 mg PO DAILY Discontinued gabapentin 800 mg tablet 800 mg PO TID Rx Instructions: TAKE 1 TABLET BY MOUTH THREE TIMES A DAY Discharge Orders: Discharge Order (Routine); Ordered 09/03/24 Ordered By: Kriss Solano/Other Patient Handouts: Dexamethasone Oral Tablet, Gabapentin Oral Tablet, Albuterol Sulfate concentrate for nebulization Inhalant Solution 5 ... Admission Data Admit Date/Time: 08/31/24 17:55 Attending Provider: Herbert Porter Admit Provider: Jm Cedillo Primary Care Provider: Shanel Mendiola V. Other Providers: Jm Cedillo Other Interventions: Discharge Summary Assessment (RN) Last Done: 09/03/24 16:49 Hospital Stay Data Consultations 08/29/24 13:52 ED Decision to Admit Stat Diagnostic Imagining Performed Chest X-Ray 08/29/24 11:25 XR chest 2V PA/lateral CLINICAL HISTORY: sob TECHNIQUE: 2 views of the chest were obtained. Comparison: Comparison is made to chest radiograph 08/18/2024 FINDINGS: An implanted pacemaker is seen. The cardiomediastinal silhouette is normal. The lungs are clear. No evidence of pleural effusion or pneumothorax. IMPRESSION: No acute abnormalities and in particular no radiographic evidence of pneumonia. ACT 112: Negative or not required by law. Electronically signed by: Ted Galvan M.D. 08/29/2024 12:50 PM Chest CTA 08/29/24 15:49 CT angio chest PE protocol CLINICAL HISTORY: PE TECHNIQUE: Multidetector row helical CT of the chest was performed with angiographic protocol. Coronal and sagittal reformations were obtained. Coronal and sagittal MIPS were obtained from the axial data set and were submitted for review. Automated dose lowering techniques and/or adjustment according to patient size were utilized for this exam. CT DOSE: 553.46 mGy.cm Comparison: Comparison is made to CT chest 10/16/2023 FINDINGS: Lungs and pleura: Minimal atelectasis is seen. Heart and pericardium: Heart size is normal. No pericardial effusion. Vessels: No evidence of pulmonary embolism. Mediastinum and emma: Unremarkable. Chest wall and lower neck: Unremarkable. Abdomen: A hiatal hernia is seen. Hepatic steatosis is seen. Bones: Compression deformities are seen in T11. IMPRESSION: No acute abnormality and in particular no evidence of pulmonary embolus. ACT 112: Negative or not required by law. Electronically signed by: Ted Galvan M.D. 08/29/2024 4:14 PM Chest X-Ray 08/30/24 07:00 XR chest 1V portable HISTORY: 74 years-old Female SOB/Hypoxia COMPARISON: 08/29/2024 TECHNIQUE: AP view of the chest FINDINGS: Cardiomediastinal and hilar silhouettes are within normal limits. Dual-lead left subclavian pacer. No pneumothorax, pleural effusion or airspace consolidation. The bones of the chest appear grossly intact. IMPRESSION: No acute process. ACT 112: Negative or not required by law. The above report was generated using voice recognition software. It may contain grammatical, syntax or spelling errors. Electronically signed by: Braxton Roper M.D. 08/30/2024 7:00 AM Pending Results Patient Have Any Pending Studies at Discharge: No Discharge Instructions Given to Patient (Per Discharging Provider) Mrs. Cannon, Theo were admitted to the hospital due to a rhinovirus-induced COPD exacerbation. This is what caused your symptoms of cough and shortness of breath. You were treated with steroids, expectorants, and breathing treatments while in the hospital. You are no longer requiring supplemental oxygen to maintain your oxygen saturations. Upon discharge from the hospital: * Continue taking Dexamethasone (oral steroid) 6 mg daily until 09/08. * Use albuterol inhaler 1-2 puffs every 2-4 hours as needed for shortness of breath or wheezing. * Take Mucinex 1200 mg twice daily for the next few days. This is an expectorant that helps loosen the mucus in your chest, allowing you to cough it out. * Continue to use your incentive spirometer provided by the hospital. This will help maintain your lung strength. * Your dose of gabapentin was reduced to 300 mg three times daily due to your kidney function. Continue this dose. * Follow-up with your PCP in the next 1-2 weeks. Please return to the hospital if you experience any of the following: Shortness of breath, wheezing, or trouble breathing that gets worse or does not get better with treatment, tightness in your chest that does not go away with your normal medicines, feeling that your heart is racing or irregular heartbeat, chest pain, difficulty speaking, lightheadedness or dizziness, confusion, or passing out. It was a pleasure taking care of you while you were in the hospital, Kriss Lee PA-C Total Time Total Time Spent Total Time Spent (In Minutes): Greater than 30 minutes spent completing this discharge process including direct patient care, medication reconciliation, documentation, review of labs and images, and coordination of care. Coding Level of Care Code 17547 INP/OBS DISCH >30 MIN Diagnoses Hypoxia R09.02 COPD (chronic obstructive pulmonary disease) J44.9 Stage III chronic kidney disease N18.3
== END 2024-09-03 18:08 | disposition home or self-care (01) | DRG 192 ==
LOC: EDINP 11:03 → ED 11:03 → SUATTDRO 14:50 → 2W 20:30